=== PATIENT | male | born 1960 | race Caucasian/White ===

== ENCOUNTER → 2018-04-13 11:34 | Outpatient (CLI) | payer BC, OTHER, SELFPAY | DX: I48.2 Chronic atrial fibrillation (principal) | CPT/HCPCS: 36416; 85610 ==

== ENCOUNTER 2018-12-21 09:07 | Inpatient (IN) | payer OTHER, SELFPAY ==
[2018-12-21] VITALS (13 sets, daily range): BP systolic 92–132; BP diastolic 55–72; PULSE 94–120; RESP 16–24; TEMP 36.1–37.8; O2SAT 92–99; BMI 35.7; BMI 34.4; BMI 34.5
--- NOTE | 2018-12-21 09:32 | US_ITS ---
STUDY: SCROTUM ULTRASOUND REASON FOR EXAM: Male, 58 years old. Left testicular pain and swelling. TECHNIQUE: Ultrasound evaluation of the scrotum was performed with color Doppler and static briggs-scale imaging. COMPARISON: None. FINDINGS: RIGHT TESTICLE INTRATESTICULAR: There is a normal size of the right testicle. The right testicle measures 5.0 cm x 3.0 cm x 2.2 cm. There is a homogenous echotexture. There is normal arterial and normal venous vascularity. There is no demonstrated right testicular mass or cyst. EXTRATESTICULAR: The epididymis is normal in size. The epididymis head measures 1.3 cm x 1.5 cm x 0.6 cm. There is normal vascularity of the epididymis. 2 epididymal cysts are seen. The larger measures 6 mm x 7 mm x 4 mm. There is a small hydrocele. There is no demonstrated varicocele. There is no demonstrated extratesticular mass or cyst. LEFT TESTICLE INTRATESTICULAR: There is a normal size of the left testicle. The left testicle measures 5.1 cm x 3.4 cm x 3.0 cm. There is a homogenous echotexture. There is normal arterial and normal venous vascularity. There is no demonstrated left testicular mass or cyst. EXTRATESTICULAR: The epididymis is enlarged. The epididymis head measures 1.8 cm x 1.7 cm x 0.8 cm. There is increased (hyperemic) vascularity of the epididymis. There is no demonstrated epididymal cystic structure. There is a moderate size hydrocele. There is no demonstrated varicocele. There is no demonstrated extratesticular mass or cyst. Scrotal skin thickening on the left. US/Testicular with Arterial Flow IMPRESSION: Enlargement of the left epididymis with increased vascularity suggestive of epididymitis. Bilateral hydroceles left greater than right. Electronically Signed: Saleem Warren MD at 11:15 EST Tel [phone], Service support ,
[2018-12-21] MEDS: morphine 8 MG/ML Syringe 6 MG IV (09:35)
[2018-12-21] MEDS: Ondansetron 4 MG/2 ML Vial IV (09:35)
--- NOTE | 2018-12-21 09:45 | ED.DCSUM_ITS ---
- ER Visit Summary Date of Service: 12/21/18 Chief Complaint: Pain left testicle and swelling History of Present Illness: The patient is a 58 M who presents with pain left testicle that started Noe. Pain in increased over the past 2 days. He now presents because of significant swelling. He denies fever, chills or night sweats. He denies dysuria, frequency, urgency or hematuria. He denies urethral discharge. He denies history of hernia. He is on Coumadin. He denies history of trauma. He denies fever, chills or night sweats. He denies weight gain or weight loss. He denies ocular, visual or auditory symptoms. He denies cardiac respiratory symptoms. He reports nausea with significant pain. He denies vomiting, diarrhea, hematemesis, or melena. Physical Examination: Vital signs noted. Blood pressure is 109/55, heart rate 118, respiratory rate 23. Patient appears uncomfortable. HEENT exam is unremarkable. Heart is regular. Lungs are clear to auscultation. Abdomen is soft nontender. He is circumcised. There is no penile lesion or discharge noted. The scrotum is swollen. The right testicle is normal. The left testicle is 4-5 times larger than the right. It is not mobile. It is tender. There is no obvious palpable hernia. There is no inguinal lymphadenopathy noted. Neuro exam is nonfocal. Test Results: White count is 30.2 thousand with 90 segs no bands 4 lymphs. Electrolyte panel is marked for sodium of 132 and chloride 92. Blood sugar is elevated 185. BUN is 22 with a creatinine 1.56. Lactate is 2.2. Ultrasound per tech reveals a small hydrocele on the right. There is a loculated hydrocele on the left that is 4.3 cm in size. The epididymis is enlarged as well at 1.8 cm. Flow was noted bilaterally. Emergency Department Course and Treatment: Since patient is on Coumadin will obtain PT/INR. Ultrasound of the testicle was obtained to evaluate for hematoma, hydrocele, mass, doubt torsion. Blood work was obtained as well. A UA was obtained even though he denies urinary symptoms. Patient denies any new sexual contacts and prior history of STD. Urine for GC and chlamydia was ordered. Once I was made aware of the white count lactate and blood cultures were added as well as 1 g of Rocephin. Urology was paged. Dr. Rod did call back. He agrees with antibiotic choice and admission to hospitalist for treatment of acute orchitis. Since his lactate is elevated and he has multiple seizures criteria he will be admitted for severe sepsis. Treatment Plan: IV antibiotics and treatment for severe sepsis Disposition: PCU full admission Impression: 1. Severe sepsis 2. Acute left orchitis 3. Hydrocele right testicle 4. Renal insufficiency 5. Hyperglycemia in a nondiabetic 6. Hyponatremia This note was generated with [employer] dictation software. It may contain incorrect words, spelling, and punctuation that were not noted in review of the chart prior to signing ED Disposition - Plan for ED Patient: Chief Complaint: Edema Referrals: Neto Box MD [Primary Care Provider] -
[2018-12-21 09:56] LABS: Absolute Lymphocyte Count 1.18 X10^3/ul (0.83-4.51); Absolute Neutrophil Count 27.3 X10^3/uL (2.0-7.7); Basophil# 0.02 X10^3/uL; Basophil% 0.1 % (0-1); Eosinophil# 0.03 X10^3/uL; Eosinophils% 0.1 % (0-5); Hematocrit 46.1 % (40-54); Hemoglobin 15.6 g/dl (13.0-16.5); Lymphocyte # 1.18 X10^3/ul (4.0); Lymphocyte % 3.9 % (19-41); Mean Corp Hgb Conc 33.8 g/gl (32-36); Mean Corpuscular Hgb 29.8 pg (27.0-32.0); Mean Platelet Vol. 9.9 fl (6.2-12.0); Monocyte# 1.39 X10^3/uL; Monocyte% 4.6 % (0-10); Neutrophil # 27.25 X10^3/uL (2.7-7.7); Neutrophil % 90.3 % (47-70); Platelet Count 218 K/mm3 (150-450); RBC Distribution Width CV 14.3 % (11.6-14.6); RBC Distribution Width SD 45.3 fl (35.1-43.9); Red Blood Count 5.24 M/mm3 (4.6-6.2)
[2018-12-21 09:58] LABS: Differential Indicated SCAN CRITERIA MET; POSITIVE COUNT YES; POSITIVE DIFFERENTIAL YES; POSITIVE MORPHOLOGY NO; White Blood Count 30.2 K/mm3 (4.4-11.0)
--- NOTE | 2018-12-21 09:58 | ED.RN ---
WBC 30.[address] CALLED [address] LAB. DR DECKER AWARE
[2018-12-21 10:07] LABS: Anion Gap 11 (5-15); BUN 22 mg/dL (7-18); BUN/Creat Ratio 14.1 RATIO (10-20); Calcium,Total 9.1 mg/dL (8.5-10.1); Chloride 92 mmol/L (98-107); Creatinine, Serum 1.56 mg/dL (0.70-1.30); EST Glomerular Filtration Rate 49 mL/min (>60); Est Glom Filt Rate - Afr Amer 59 mL/min (>60); Estimated Creatinine Clearance 46.01 ml/min; Glucose 185 mg/dL (74-106); Potassium 3.8 mmol/L (3.5-5.1); Sodium Level 132 mmol/L (136-145)
[2018-12-21 10:19] LABS: International Normalized Ratio 1.2; Prothrombin Time (Protime)PT. 15.5 SECONDS (11.7-14.9)
[2018-12-21 10:21] LABS: Differential Comment SCANNED; Vacuolated Cells 1+
[2018-12-21] MEDS: Ceftriaxone 1 GM/50 ML BAG IV (10:37)
[2018-12-21 10:55] LABS: Lactic Acid 2.2 mmol/L (0.4-2.0)
--- NOTE | 2018-12-21 10:55 | ED.RN ---
LACTIC 2.2 CALLED FROM THE LAB. DR DECKER AWARE
--- NOTE | 2018-12-21 11:46 | NURSING ---
Tong ROJAS SEVERE SEPSIS, ACUTE ORCHITIS
[2018-12-21 11:53] LABS: Color, Urine Yellow (Yellow); Glucose, Dipstick Normal (Normal); Ketone-Dipstick 5 mg/dl (Negative); Leukocyte Esterase-Dipstick 500 /ul (Negative); Nitrite-Dipstick Positive (Negative); Occult Blood-Urine 25 /ul (Negative); Protein-Dipstick 100 mg/dl (Negative); Specific Gravity, Urine 1.025 (1.002-1.030); Urine Clarity Cloudy (Clear); Urine Urobilinogen 4 mg/dl (Normal)
[2018-12-21 12:01] LABS: Urine Bilirubin Dipstick 3 mg/dL (Negative)
[2018-12-21 12:02] LABS: Bacteria 2+ /hpf (None Seen); Red Blood Cells-Urine 0-5 SEEN /hpf (0-5); White Blood Cells 25-50 SEEN /hpf (0-5)
[2018-12-21 12:03] LABS: Mucous, Urine 1+ /hpf (<or=2+); Squamous Epithelial Cells - UA 0-5 SEEN /hpf (0-5)
[2018-12-21] MEDS: Morphine 4 MG/ML Syringe IV (12:09)
--- NOTE | 2018-12-21 12:23 | CM.ED ---
Social Work Note Face to face with pt to complete initial assessment. Introduced self and role at [facility]. The pt reports to live with his son in a one-story home with no LEELA. His son is a overhauler bus truck and is gone most of the time per his report. Pt is independent with ADLs and does not require the use of DME for assistance. Confirmed that his PCP is Dr. Box and he also sees Dr. Pratt for cardiology (has 4 stents). Preferred pharmacy is [facility] in [place]. Pt denies mental health diagnoses, and substance abuse history. Does not have advanced directives and declines information at this time. Do not anticipate needs at discharge. PLAN: Home. Jessica Nelson, [employer], FREDO
[2018-12-21] MEDS: oxyCODONE 5 MG Tablet PO ×3 (13:50→22:34)
[2018-12-21] MEDS: 0.9% Normal Saline 1,000 ML 200 ML IV (13:50)
[2018-12-21 14:25] LABS: Reflex Lactate? Y
--- NOTE | 2018-12-21 14:25 | HP.PCM_ITS ---
Problem List (1) Cellulitis of scrotum Status: Acute (2) Severe sepsis Status: Acute History of Present Illness Date of Admission: 12/21/18 Chief Complaint: testilcular swelling The patient is a 58 year old M the 18th, where patient had some pain in his left groin. Instructed off but was not feeling well overall and not eating much. Today, the pain was much more intense and was noted to have prominent erythema and tenderness over his scrotum put her on the left side. Patient denies any obvious trauma to his leg is never had any history of cellulitis much less scrotal cellulitis previously. Patient presented to the emergency room for evaluation he was diagnosed with acute left orchitis and I received 1 g of Rocephin. Has been chilled and has had diaphoresis but denies any fever. [] Past Medical History Past Medical History (Chronic Problems): Chronic Problems (Last Updated 11/18/17 @ 09:15 by DORENE Dao) Hyperlipidemia (Chronic) HTN (hypertension), benign (Chronic) Persistent atrial fibrillation (Chronic) CAD (coronary artery disease), [place] coronary artery (Chronic) Medical History: Medical History (Last Reviewed 12/21/18 @ 14:24 by Esvin Rodriguez DO) Hyperlipidemia (Chronic) E78.5 HTN (hypertension), benign (Chronic) I10 Persistent atrial fibrillation (Chronic) I48.1 Cardiomyopathy, ischemic (Resolved) I25.5 CAD (coronary artery disease), [place] coronary artery (Chronic) I25.10 Allergies atorvastatin calcium [From Lipitor] Allergy (Verified 12/21/18 09:07) Unknown fenofibrate nanocrystallized [From Tricor] Allergy (Verified 12/21/18 09:07) Unknown fenofibrate,micronized [From Tricor] Allergy (Verified 12/21/18 09:07) Unknown pravastatin sodium [From Pravachol] Allergy (Verified 12/21/18 09:07) Unknown rosuvastatin calcium [From Crestor] Allergy (Verified 12/21/18 09:07) Unknown simvastatin [From Zocor] Allergy (Verified 12/21/18 09:07) Unknown Home Medications: Ambulatory Orders Medication Instructions Recorded warfarin 5 mg tablet 5 mg PO DAILY #90 tab 11/06/17 clopidogrel 75 mg tablet 75 mg PO DAILY #90 tab 05/19/18 digoxin 250 mcg tablet 250 mcg PO DAILY #90 tab 05/19/18 losartan 100 1 tab PO QDAY #90 tab 05/19/18 mg-hydrochlorothiazide 25 mg tablet metoprolol succinate ER 100 mg 100 mg PO QDAY #90 tab 05/19/18 tablet,extended release 24 hr Psyllium Husk [Metamucil] 0.4 gm PO DAILY 12/21/18 Surgical History: Surgical History (Last Reviewed 12/21/18 @ 14:24 by Esvin Rodriguez DO) S/P coronary artery stent placement (Resolved) Z95.5 LAD 2008, LAD 2012 Smoking Status: Never smoker Tobacco Use: Non-smoker Alcohol: None Drugs: None - *Family History Paternal History Items: Heart Disease Review of Systems Constitutional: Reports: Anorexia, Chills, Malaise. Denies: Fever, Night Sweats Eyes: Denies: Blurred vision, Double vision HEENT: Denies: Head Aches, Sinus Congestion, Sinus Drainage Cardiovascular: Denies: Chest Pain, Palpitations Respiratory: Denies: Cough, Shortness of breath at rest, Sputum production Gastrointestinal: Reports: Abdominal Pain. Denies: Nausea, Vomiting Genitourinary: Reports: Dysuria. Denies: Frequency Musculoskeletal: Denies: Joint Pain, Joint Tenderness Skin: Denies: Dryness, Jaundice Neurological: Denies: Numbness, Tingling, Focal weakness Psychiatric: Denies: Anxiety, Depression Endocrine: Denies: Change in Body Habitus, Heat/ Cold Intolerance Hematologic/ Lymphatic: Reports: Easy Bleeding. Denies: Easy Bruising, Hx of blood clot Comment: A 10 point review of systems were negative except as mentioned in the history of present illness and the other review of systems. VTE Information - Inpt Only VTE Present on Admission: No VTE Pharm Prophylaxis ordered?: Yes Patient Problems: Active and Suspected Problems (Last Updated 11/18/17 @ 09:15 by DORENE Salas) Cellulitis of scrotum (Acute) Severe sepsis (Acute) Objective: Scrotum with erythema circumferentially. Tender to palpation on the distal aspect of the scrotum. No obvious lesions or wounds noted. - Physical Exam General: Alert, Cooperative, No apparent distress HEENT: Atraumatic, Normocephalic, - - No scleral icterus. Oral: Moist Mucosa, No Gingival or Mucosal Lesions/ Ulcerations Neck: No Nodes, Thyroid Normal Size and Texture Lungs: Clear to auscultation, Normal air movement, No rhonchi, No wheeze Cardiovascular: Regular rate, Regular Rhythm, Normal S1, Normal S2, No murmurs Abdomen: Bowel Sounds Present, Soft, Non Tender, Non-Distended, No Hepato- splenomegaly Extremities: No edema, No Calf Tenderness Skin: - - excoriations over the distal legs Musculoskeletal: No Tenderness to Palpation of Joints or Extremities, No Muscle Wasting Neurological: Neuro grossly intact, Muscle tone normal, Coordination normal Psych/Mental Status: Normal Affect, Appropriate Vital Signs Temp Pulse Resp BP Pulse Ox 37.4 C H 120 H 20 H 98/68 92 12/21/18 13:02 12/21/18 13:08 12/21/18 13:02 12/21/18 13:02 12/21/18 13:02 Oxygen Delivery Method Room Air Weight: 97 kg Body Mass Index (BMI) 34.4 Laboratory Tests Past 24 Hrs 12/21/18 12/21/18 12/21/18 09:40 09:40 09:40 WBC 30.2 H* RBC 5.24 Hgb 15.6 Hct 46.1 MCV 88.0 MCH 29.8 MCHC 33.8 RDW 14.3 RDW Differential 45.3 H Plt Count 218 MPV 9.9 Immature Gran % (Auto) 1.000 H Neut % (Auto) 90.3 H Lymph % (Auto) 3.9 L [place] % (Auto) 4.6 Eos % (Auto) 0.1 Baso % (Auto) 0.1 Absolute Neuts (auto) 27.3 H Absolute Lymphs (auto) 1.18 Total Counted Not Reportable Differential Comment 1+ Diff Path Review March foll PT 15.5 H INR 1.2 Sodium 132 L Potassium 3.8 Chloride 92 L Carbon Dioxide 29.0 Anion Gap 11 BUN 22 H Creatinine 1.56 H Estim Creat Clear Calc 46.01 Est GFR (MDRD) Af Amer 59 L Est GFR (MDRD) Non-Af 49 L BUN/Creatinine Ratio 14.1 Glucose 185 H Lactic Acid Calcium 9.1 Urine Color Urine Clarity Urine pH Ur Specific [place] Urine Protein Urine Glucose (UA) Urine Ketones Urine Occult Blood Urine Nitrite Urine Bilirubin Urine Urobilinogen Ur Leukocyte Esterase Urine RBC Urine WBC Ur Squamous Epith Cells Urine Bacteria Urine Mucus Chlam trachomat DNA PCR N.gonorrhoeae DNA (PCR) 12/21/18 12/21/18 12/21/18 10:18 11:35 11:35 WBC RBC Hgb Hct MCV MCH MCHC RDW RDW Differential Plt Count MPV Immature Gran % (Auto) Neut % (Auto) Lymph % (Auto) [place] % (Auto) Eos % (Auto) Baso % (Auto) Absolute Neuts (auto) Absolute Lymphs (auto) Total Counted Differential Comment Diff Path Review PT INR Sodium Potassium Chloride Carbon Dioxide Anion Gap BUN Creatinine Estim Creat Clear Calc Est GFR (MDRD) Af Amer Est GFR (MDRD) Non-Af BUN/Creatinine Ratio Glucose Lactic Acid 2.2 H Calcium Urine Color Yellow Urine Clarity Cloudy Urine pH 5.0 Ur Specific [place] 1.025 Urine Protein 100 H Urine Glucose (UA) Normal Urine Ketones 5 H Urine Occult Blood 25 H Urine Nitrite Positive H Urine Bilirubin 3 H Urine Urobilinogen 4 H Ur Leukocyte Esterase 500 H Urine RBC 0-5 SEEN Urine WBC 25-50 SEEN Ur Squamous Epith Cells 0-5 SEEN Urine Bacteria 2+ Urine Mucus 1+ Chlam trachomat DNA PCR Pending N.gonorrhoeae DNA (PCR) Pending Clinical Impression(s) from Imaging Studies Testicular Ultrasound 12/21/18 09:32 IMPRESSION: Enlargement of the left epididymis with increased vascularity suggestive of epididymitis. Bilateral hydroceles left greater than right. Electronically Signed: Saleem Warren MD at 11:15 EST Tel [phone], Service support , Assessment/Plan All Active Problems (Last Updated 11/18/17 @ 09:15 by DORENE Dao) Cellulitis of scrotum (Acute) Severe sepsis (Acute) Cardiomyopathy, ischemic (Resolved) S/P coronary artery stent placement (Resolved) 1. Severe sepsis Present on admission Secondary to scrotal cellulitis IV fluids Recheck lactic acid 2. Scrotal cellulitis I doubt orchitis as patient testicles normal size on ultrasound Will treat empirically for possible orchitis with ceftriaxone 2 g IV daily Will also start patient on IV vancomycin Keep scrotum elevated No clinical suspicion for gangrene at this time Urology on consult 3. Chronic atrial fibrillation Patient had stopped Coumadin due to a disagreement to his primary provider and cardiology because cardiology wanted him on Plavix and Coumadin but his primary provider did not because of his bleeding tendencies. Discussed with patient about bleeding risk but also the risk of stroke without being on Coumadin. He would prefer to be back on Coumadin and understands the risks of bleeding Will resume Coumadin Continue with digoxin and metoprolol succinate 4. CAD Stable Continue with Plavix, metoprolol 5. DVT prophylaxis with Lovenox until INR is therapeutic Code Visit Inpatient E&M: 53355 Init Hosp L3
[2018-12-21 14:41] LABS: Chlamydia Trachomatis by PCR Negative (Negative); Neisserai gonorrhoeae by PCR Negative (Negative); Probe Check PASS; Sample Adequacy Control PASS; Specimen Processing Control PASS
[2018-12-21 15:16] LABS: Lactic Acid 1.6 mmol/L (0.4-2.0)
--- NOTE | 2018-12-21 16:17 | PCM.RX.CS ---
Consult Pharmacy has been consulted to manage selected antiobiotic: Vancomycin Type of Consult: New start Suspected Infection: Sepsis Prior Doses of Antibiotics Received/Current Regimen: NONE Labs: Sodium 132 mmol/L (136-145) L 12/21/18 09:40 Potassium 3.8 mmol/L (3.5-5.1) 12/21/18 09:40 Chloride 92 mmol/L (98-107) L 12/21/18 09:40 Carbon Dioxide 29.0 mmol/L (21.0-32.0) 12/21/18 09:40 Anion Gap 11 (5-15) 12/21/18 09:40 BUN 22 mg/dL (7-18) H 12/21/18 09:40 Creatinine 1.56 mg/dL (0.70-1.30) H 12/21/18 09:40 Est GFR (MDRD) Af Amer 59 mL/min (>60) L 12/21/18 09:40 Est GFR (MDRD) Non-Af 49 mL/min (>60) L 12/21/18 09:40 BUN/Creatinine Ratio 14.1 RATIO (10-20) 12/21/18 09:40 Glucose 185 mg/dL (74-106) H 12/21/18 09:40 Weight used for dosin kg Estimated Creatinine Clearance: 46ML/MIN Goal Trough: 15-20 mcg/mL Pharmacy Plan for Drug Dosing: PLAN/RECOMMENDATIONS 1. Vancomycin initial dose 1500mg IV x1 @12/21/18 @1700 per protocol 2. Vancomycin 750mg IV Q12hrs to start 12/22/18 @0500 per protocol 3. Trough scheduled 12/23/18 @0430, prior to 4th total vancomycin dose 4. Pharmacy Service will continue to monitor and adjust dosing as required.
[2018-12-21] MEDS: Clopidogrel Bisulfate 75 MG Tablet PO (17:38)
[2018-12-21] MEDS: Metoprolol(XL)Succ 100 MG Tablet PO (17:39)
[2018-12-21] MEDS: Digoxin 250 MCG Tablet PO (17:39)
[2018-12-21] MEDS: Acetaminophen 500 MG Tablet 1000 MG PO (20:17)
[2018-12-21] MEDS: Psyllium 1 PACKET PO (20:18)
[2018-12-21] MEDS: Gabapentin 300 MG Capsule PO (22:33)
[2018-12-22] VITALS (9 sets, daily range): BP systolic 103–180; BP diastolic 53–86; PULSE 84–119; RESP 18–20; TEMP 36.8–38.7; O2SAT 97–98
[2018-12-22] MEDS: oxyCODONE 5 MG Tablet PO ×5 (02:36→19:51)
[2018-12-22 05:33] LABS: Absolute Lymphocyte Count 0.84 X10^3/ul (0.83-4.51); Absolute Neutrophil Count 14.1 X10^3/uL (2.0-7.7); Basophil# 0.01 X10^3/uL; Basophil% 0.1 % (0-1); Eosinophil# 0.13 X10^3/uL; Eosinophils% 0.8 % (0-5); Hematocrit 40.6 % (40-54); Hemoglobin 13.5 g/dl (13.0-16.5); Lymphocyte # 0.84 X10^3/ul (4.0); Lymphocyte % 5.1 % (19-41); Mean Corp Hgb Conc 33.3 g/gl (32-36); Mean Corpuscular Hgb 29.2 pg (27.0-32.0); Mean Corpuscular Volume 87.7 fL (80-94); Mean Platelet Vol. 9.3 fl (6.2-12.0); Monocyte# 1.28 X10^3/uL; Monocyte% 7.8 % (0-10); Neutrophil # 14.05 X10^3/uL (2.7-7.7); Neutrophil % 85.7 % (47-70); Platelet Count 198 K/mm3 (150-450); RBC Distribution Width CV 14.4 % (11.6-14.6); RBC Distribution Width SD 45.6 fl (35.1-43.9); Red Blood Count 4.63 M/mm3 (4.6-6.2); White Blood Count 16.4 K/mm3 (4.4-11.0)
[2018-12-22 05:39] LABS: POSITIVE COUNT NO; POSITIVE DIFFERENTIAL NO; POSITIVE MORPHOLOGY NO
[2018-12-22 05:40] LABS: International Normalized Ratio 1.2; Prothrombin Time (Protime)PT. 14.8 SECONDS (11.7-14.9)
[2018-12-22 05:46] LABS: Anion Gap 6 (5-15); BUN 28 mg/dL (7-18); BUN/Creat Ratio 22.8 RATIO (10-20); Calcium,Total 8.5 mg/dL (8.5-10.1); Chloride 99 mmol/L (98-107); Creatinine, Serum 1.23 mg/dL (0.70-1.30); EST Glomerular Filtration Rate 64 mL/min (>60); Est Glom Filt Rate - Afr Amer 77 mL/min (>60); Estimated Creatinine Clearance 58.35 ml/min; Glucose 115 mg/dL (74-106); Potassium 3.5 mmol/L (3.5-5.1); Sodium Level 137 mmol/L (136-145)
[2018-12-22] MEDS: 0.9% NaCl Peripheral Flush Adult/Peds IV ×2 (06:09→17:07)
--- NOTE | 2018-12-22 09:06 | PCM.PN.HOSP ---
Patient Problems: Active and Suspected Problems (Last Reviewed 12/21/18 @ 14:24 by Esvin Rodriguez DO) Cellulitis of scrotum (Acute) Severe sepsis (Acute) Subjective: fever and chills overnight. Abdominal pain. Still with scrotal pain and erythema, though he feels the erythema is improving. Objective: : still with erythema of scrotum, but slightly improved from 12/21. no crepitus. Vitals/I&O's: Vital Signs Temp Pulse Resp BP Pulse Ox 36.8 C 90 20 H 120/72 98 12/22/18 04:30 12/22/18 06:54 12/22/18 04:30 12/22/18 04:30 12/22/18 04:30 Oxygen Delivery Method Room Air Weight: 97 kg Body Mass Index (BMI) 34.4 Intake and Output for Last 24 Hours 12/20/18 12/21/18 12/22/18 23:59 23:59 23:59 Intake Total 1830 / 1830 1255 / 1255 Output Total 300 / 300 1225 / 1225 Balance 1530 / 1530 30 / 30 General: Alert, - - uncomfortable. HEENT: Atraumatic, Normocephalic Oral: Moist Mucosa, No Gingival or Mucosal Lesions/ Ulcerations Neck: No Nodes, Thyroid Normal Size and Texture Lungs: Clear to auscultation, Normal air movement, No rhonchi, No wheeze Cardiovascular: Regular rate, Regular Rhythm, Normal S1, Normal S2, No murmurs Abdomen: Bowel Sounds Present, Soft, Non-Distended, Tender Extremities: No edema, No Calf Tenderness Laboratory Results 12/21/18 09:40: WBC 30.2 H*, RBC 5.24, Hgb 15.6, Hct 46.1, MCV 88.0, MCH 29.8, MCHC 33.8, RDW 14.3, RDW Differential 45.3 H, Plt Count 218, MPV 9.9, Immature Gran % (Auto) 1.000 H, Neut % (Auto) 90.3 H, Lymph % (Auto) 3.9 L, [place] % (Auto) 4.6, Eos % (Auto) 0.1, Baso % (Auto) 0.1, Absolute Neuts (auto) 27.3 H, Absolute Lymphs (auto) 1.18, Total Counted Not Reportable, Differential Comment 1+, Diff Path Review March foll 12/21/18 09:40: Sodium 132 L, Potassium 3.8, Chloride 92 L, Carbon Dioxide 29.0, Anion Gap 11, BUN 22 H, Creatinine 1.56 H, Estim Creat Clear Calc 46.01, Est GFR (MDRD) Af Amer 59 L, Est GFR (MDRD) Non-Af 49 L, BUN/Creatinine Ratio 14.1, Glucose 185 H, Calcium 9.1 12/21/18 09:40: PT 15.5 H, INR 1.2 12/21/18 10:18: Lactic Acid 2.2 H 12/21/18 11:35: Urine Color Yellow, Urine Clarity Cloudy, Urine pH 5.0, Ur Specific [place] 1.025, Urine Protein 100 H, Urine Glucose (UA) Normal, Urine Ketones 5 H, Urine Occult Blood 25 H, Urine Nitrite Positive H, Urine Bilirubin 3 H, Urine Urobilinogen 4 H, Ur Leukocyte Esterase 500 H, Urine RBC 0-5 SEEN, Urine WBC 25-50 SEEN, Ur Squamous Epith Cells 0-5 SEEN, Urine Bacteria 2+, Urine Mucus 1+ 12/21/18 11:35: Chlam trachomat DNA PCR Negative, N.gonorrhoeae DNA (PCR) Negative 12/21/18 14:48: Lactic Acid 1.6 12/22/18 04:55: Sodium 137, Potassium 3.5, Chloride 99, Carbon Dioxide 32.0, Anion Gap 6, BUN 28 H, Creatinine 1.23, Estim Creat Clear Calc 58.35, Est GFR (MDRD) Af Amer 77, Est GFR (MDRD) Non-Af 64, BUN/Creatinine Ratio 22.8 H, Glucose 115 H, Calcium 8.5 12/22/18 04:55: WBC 16.4 H, RBC 4.63, Hgb 13.5, Hct 40.6, MCV 87.7, MCH 29.2, MCHC 33.3, RDW 14.4, RDW Differential 45.6 H, Plt Count 198, MPV 9.3, Immature Gran % (Auto) 0.500, Neut % (Auto) 85.7 H, Lymph % (Auto) 5.1 L, [place] % (Auto) 7.8, Eos % (Auto) 0.8, Baso % (Auto) 0.1, Absolute Neuts (auto) 14.1 H, Absolute Lymphs (auto) 0.84, Total Counted Not Reportable 12/22/18 04:55: PT 14.8, INR 1.2 Current Medications Acetaminophen (Tylenol) 1,000 mg PO Q8H PRN PRN PRN Reason: pain. fever. Last Admin: 12/21/18 20:17 Dose: 1,000 mg Clopidogrel Bisulfate (Plavix) 75 mg PO DAILY [facility] Last Admin: 12/21/18 17:38 Dose: 75 mg Digoxin (Lanoxin) 250 mcg PO DAILY [facility] Last Admin: 12/21/18 17:39 Dose: 250 mcg Enoxaparin Sodium (Lovenox) 40 mg SC DAILY@1000 [facility] Gabapentin (Neurontin) 300 mg PO QHS [facility] Last Admin: 12/21/18 22:33 Dose: 300 mg Ceftriaxone Sodium 2 gm/ (Sodium Chloride) 50 mls @ 100 mls/hr IV Q24 [facility] Vancomycin IV Pharmacy to Dose (1 ea/ Sodium Chloride) 500 mls @ 250 mls/hr IV PRN PRN; Protocol PRN Reason: Rx to Dose Vancomycin HCl 750 mg/ Sodium (Chloride) 265 mls @ 250 mls/hr IV Q12H [facility] Last Admin: 12/22/18 06:09 Dose: 250 mls/hr Magnesium Hydroxide (Milk Of Magnesia) 30 ml PO DAILY PRN PRN Reason: Constipation Metoprolol Succinate (Toprol Xl (Beta Eusebio)) 100 mg PO DAILY [facility] Last Admin: 12/21/18 17:39 Dose: 100 mg Ondansetron HCl (Zofran) 4 mg IV Q6H PRN PRN PRN Reason: nausea vomiting Oxycodone HCl (Oxyir) 5 mg PO Q4H PRN PRN PRN Reason: SEVERE PAIN (6-10/10) Last Admin: 12/22/18 06:39 Dose: 5 mg Psyllium Hydrophilic Mucilloid (Metamucil) 1 packet PO DAILY [facility] Last Admin: 12/21/18 20:18 Dose: 1 packet Sodium Chloride () 5 - 15 ml IV UD PRN PRN Reason: SALINE FLUSH Last Admin: 12/22/18 06:09 Dose: 10 ml Warfarin Sodium (Coumadin (Pbkc)) 5 mg PO DAILY@1700 [facility] Last Admin: 12/21/18 17:39 Dose: 5 mg Medical Necessity - Tobacco Use Smoking Status: Never smoker Tobacco Use: Non-smoker Assessment/Plan All Active Problems (Last Reviewed 12/21/18 @ 14:24 by Esvin Rodriguez DO) Cellulitis of scrotum (Acute) Severe sepsis (Acute) Cardiomyopathy, ischemic (Resolved) S/P coronary artery stent placement (Resolved) 1. Severe sepsis Present on admission Clinically improving Secondary to scrotal cellulitis IV fluids Lactic acidosis resolved. 2. Scrotal cellulitis Ongoing. I doubt orchitis as patient testicles normal size on ultrasound Will treat empirically for possible orchitis with ceftriaxone 2 g IV daily Will also start patient on IV vancomycin Keep scrotum elevated No clinical suspicion for gangrene at this time Urology on consult 3. Chronic atrial fibrillation Patient had stopped Coumadin due to a disagreement to his primary provider and cardiology because cardiology wanted him on Plavix and Coumadin but his primary provider did not because of his bleeding tendencies. Discussed with patient about bleeding risk but also the risk of stroke without being on Coumadin. He would prefer to be back on Coumadin and understands the risks of bleeding Will resume Coumadin Continue with digoxin and metoprolol succinate 4. CAD Stable Continue with Plavix, metoprolol 5. DVT prophylaxis with Lovenox until INR is therapeutic Can deescalate to Med Surg status today. Code Visit Inpatient E&M: 41570 Subs Hosp L2
--- NOTE | 2018-12-22 09:10 | PN_ITS ---
Patient Problems: Active and Suspected Problems (Last Reviewed 12/21/18 @ 14:24 by Esvin Rodriguez DO) Cellulitis of scrotum (Acute) Severe sepsis (Acute) Subjective: fever and chills overnight. Abdominal pain. Still with scrotal pain and erythema, though he feels the erythema is improving. Objective: : still with erythema of scrotum, but slightly improved from 12/21. no crepitus. Vitals/I&O's: Vital Signs Temp Pulse Resp BP Pulse Ox 36.8 C 90 20 H 120/72 98 12/22/18 04:30 12/22/18 06:54 12/22/18 04:30 12/22/18 04:30 12/22/18 04:30 Oxygen Delivery Method Room Air Weight: 97 kg Body Mass Index (BMI) 34.4 Intake and Output for Last 24 Hours 12/20/18 12/21/18 12/22/18 23:59 23:59 23:59 Intake Total 1830 / 1830 1255 / 1255 Output Total 300 / 300 1225 / 1225 Balance 1530 / 1530 30 / 30 General: Alert, - - uncomfortable. HEENT: Atraumatic, Normocephalic Oral: Moist Mucosa, No Gingival or Mucosal Lesions/ Ulcerations Neck: No Nodes, Thyroid Normal Size and Texture Lungs: Clear to auscultation, Normal air movement, No rhonchi, No wheeze Cardiovascular: Regular rate, Regular Rhythm, Normal S1, Normal S2, No murmurs Abdomen: Bowel Sounds Present, Soft, Non-Distended, Tender Extremities: No edema, No Calf Tenderness Laboratory Results 12/21/18 09:40: WBC 30.2 H*, RBC 5.24, Hgb 15.6, Hct 46.1, MCV 88.0, MCH 29.8, MCHC 33.8, RDW 14.3, RDW Differential 45.3 H, Plt Count 218, MPV 9.9, Immature Gran % (Auto) 1.000 H, Neut % (Auto) 90.3 H, Lymph % (Auto) 3.9 L, [place] % (Auto) 4.6, Eos % (Auto) 0.1, Baso % (Auto) 0.1, Absolute Neuts (auto) 27.3 H, Absolute Lymphs (auto) 1.18, Total Counted Not Reportable, Differential Comment 1+, Diff Path Review March foll 12/21/18 09:40: Sodium 132 L, Potassium 3.8, Chloride 92 L, Carbon Dioxide 29.0, Anion Gap 11, BUN 22 H, Creatinine 1.56 H, Estim Creat Clear Calc 46.01, Est GFR (MDRD) Af Amer 59 L, Est GFR (MDRD) Non-Af 49 L, BUN/Creatinine Ratio 14.1, Glucose 185 H, Calcium 9.1 12/21/18 09:40: PT 15.5 H, INR 1.2 12/21/18 10:18: Lactic Acid 2.2 H 12/21/18 11:35: Urine Color Yellow, Urine Clarity Cloudy, Urine pH 5.0, Ur Specific [place] 1.025, Urine Protein 100 H, Urine Glucose (UA) Normal, Urine Ketones 5 H, Urine Occult Blood 25 H, Urine Nitrite Positive H, Urine Bilirubin 3 H, Urine Urobilinogen 4 H, Ur Leukocyte Esterase 500 H, Urine RBC 0-5 SEEN, Urine WBC 25-50 SEEN, Ur Squamous Epith Cells 0-5 SEEN, Urine Bacteria 2+, Urine Mucus 1+ 12/21/18 11:35: Chlam trachomat DNA PCR Negative, N.gonorrhoeae DNA (PCR) Negati ve 12/21/18 14:48: Lactic Acid 1.6 12/22/18 04:55: Sodium 137, Potassium 3.5, Chloride 99, Carbon Dioxide 32.0, Anion Gap 6, BUN 28 H, Creatinine 1.23, Estim Creat Clear Calc 58.35, Est GFR (MDRD) Af Amer 77, Est GFR (MDRD) Non-Af 64, BUN/Creatinine Ratio 22.8 H, Glucose 115 H, Calcium 8.5 12/22/18 04:55: WBC 16.4 H, RBC 4.63, Hgb 13.5, Hct 40.6, MCV 87.7, MCH 29.2, MCHC 33.3, RDW 14.4, RDW Differential 45.6 H, Plt Count 198, MPV 9.3, Immature Gran % (Auto) 0.500, Neut % (Auto) 85.7 H, Lymph % (Auto) 5.1 L, [place] % (Auto) 7.8, Eos % (Auto) 0.8, Baso % (Auto) 0.1, Absolute Neuts (auto) 14.1 H, Absolute Lymphs (auto) 0.84, Total Counted Not Reportable 12/22/18 04:55: PT 14.8, INR 1.2 Current Medications Acetaminophen (Tylenol) 1,000 mg PO Q8H PRN PRN PRN Reason: pain. fever. Last Admin: 12/21/18 20:17 Dose: 1,000 mg Clopidogrel Bisulfate (Plavix) 75 mg PO DAILY [facility] Last Admin: 12/21/18 17:38 Dose: 75 mg Digoxin (Lanoxin) 250 mcg PO DAILY [facility] Last Admin: 12/21/18 17:39 Dose: 250 mcg Enoxaparin Sodium (Lovenox) 40 mg SC DAILY@1000 [facility] Gabapentin (Neurontin) 300 mg PO QHS [facility] Last Admin: 12/21/18 22:33 Dose: 300 mg Ceftriaxone Sodium 2 gm/ (Sodium Chloride) 50 mls @ 100 mls/hr IV Q24 [facility] Vancomycin IV Pharmacy to Dose (1 ea/ Sodium Chloride) 500 mls @ 250 mls/hr IV PRN PRN; Protocol PRN Reason: Rx to Dose Vancomycin HCl 750 mg/ Sodium (Chloride) 265 mls @ 250 mls/hr IV Q12H [facility] Last Admin: 12/22/18 06:09 Dose: 250 mls/hr Magnesium Hydroxide (Milk Of Magnesia) 30 ml PO DAILY PRN PRN Reason: Constipation Metoprolol Succinate (Toprol Xl (Beta Eusebio)) 100 mg PO DAILY [facility] Last Admin: 12/21/18 17:39 Dose: 100 mg Ondansetron HCl (Zofran) 4 mg IV Q6H PRN PRN PRN Reason: nausea vomiting Oxycodone HCl (Oxyir) 5 mg PO Q4H PRN PRN PRN Reason: SEVERE PAIN (6-10/10) Last Admin: 12/22/18 06:39 Dose: 5 mg Psyllium Hydrophilic Mucilloid (Metamucil) 1 packet PO DAILY [facility] Last Admin: 12/21/18 20:18 Dose: 1 packet Sodium Chloride () 5 - 15 ml IV UD PRN PRN Reason: SALINE FLUSH Last Admin: 12/22/18 06:09 Dose: 10 ml Warfarin Sodium (Coumadin (Pbkc)) 5 mg PO DAILY@1700 [facility] Last Admin: 12/21/18 17:39 Dose: 5 mg Medical Necessity - Tobacco Use Smoking Status: Never smoker Tobacco Use: Non-smoker Assessment/Plan All Active Problems (Last Reviewed 12/21/18 @ 14:24 by Esvin Rodriguez DO) Cellulitis of scrotum (Acute) Severe sepsis (Acute) Cardiomyopathy, ischemic (Resolved) S/P coronary artery stent placement (Resolved) 1. Severe sepsis Present on admission Clinically improving Secondary to scrotal cellulitis IV fluids Lactic acidosis resolved. 2. Scrotal cellulitis Ongoing. I doubt orchitis as patient testicles normal size on ultrasound Will treat empirically for possible orchitis with ceftriaxone 2 g IV daily Will also start patient on IV vancomycin Keep scrotum elevated No clinical suspicion for gangrene at this time Urology on consult 3. Chronic atrial fibrillation Patient had stopped Coumadin due to a disagreement to his primary provider and cardiology because cardiology wanted him on Plavix and Coumadin but his primary provider did not because of his bleeding tendencies. Discussed with patient about bleeding risk but also the risk of stroke without being on Coumadin. He would prefer to be back on Coumadin and understands the risks of bleeding Will resume Coumadin Continue with digoxin and metoprolol succinate 4. CAD Stable Continue with Plavix, metoprolol 5. DVT prophylaxis with Lovenox until INR is therapeutic Can deescalate to Med Surg status today. Code Visit Inpatient E&M: 99123 Subs Hosp L2
[2018-12-22] MEDS: Acetaminophen 500 MG Tablet 1000 MG PO ×2 (09:57→17:47)
[2018-12-22] MEDS: Digoxin 250 MCG Tablet PO (09:58)
[2018-12-22] MEDS: Clopidogrel Bisulfate 75 MG Tablet PO (09:58)
[2018-12-22] MEDS: Metoprolol(XL)Succ 100 MG Tablet PO (09:59)
[2018-12-22] MEDS: Psyllium 1 PACKET PO (09:59)
[2018-12-22] MEDS: Enoxaparin 40 MG/0.4 ML Syringe SC (10:02)
[2018-12-22 10:37] LABS: Pathologist Review Reviewed
--- NOTE | 2018-12-22 11:13 | CASEMGMT ---
RN CM Assessment Presentation: Severe sepsis, scrotal cellulitis Intro role of CM to patient in room> He is able to participate in RN CM assessment. PCP: Dr. Box [facility]: [facility] Prescription coverage: yes Living Arrangements: Lives independently with son. DME/HHS: no DME use, no home health. Transportation: pt drives. is listed as DPOA, however pt is . Pt states he would like to redo DPOA to have son listed instead. Yina, IAM updated. Rubi LAMAS RN ACM DC PLAN: Home on dc,pt denies any dc needs at this time. Rubi LAMAS RN ACM
--- NOTE | 2018-12-22 12:59 | NURSING ---
report called to nitin antonio
[2018-12-22] MEDS: Gabapentin 300 MG Capsule PO (21:21)
[2018-12-23] VITALS (9 sets, daily range): BP systolic 146–175; BP diastolic 74–80; PULSE 82–122; RESP 18–20; TEMP 36.9–39.4; O2SAT 96–98
[2018-12-23] MEDS: oxyCODONE 5 MG Tablet PO ×4 (00:23→20:30)
[2018-12-23] MEDS: Acetaminophen 500 MG Tablet 1000 MG PO ×3 (03:07→19:24)
[2018-12-23 04:48] LABS: Absolute Lymphocyte Count 0.38 X10^3/ul (0.83-4.51); Absolute Neutrophil Count 6.8 X10^3/uL (2.0-7.7); Basophil# 0.02 X10^3/uL; Basophil% 0.2 % (0-1); Eosinophil# 0.03 X10^3/uL; Eosinophils% 0.4 % (0-5); Hematocrit 37.4 % (40-54); Hemoglobin 12.6 g/dl (13.0-16.5); Lymphocyte # 0.38 X10^3/ul (4.0); Lymphocyte % 4.7 % (19-41); Mean Corp Hgb Conc 33.7 g/gl (32-36); Mean Corpuscular Volume 86.2 fL (80-94); Mean Platelet Vol. 9.3 fl (6.2-12.0); Monocyte# 0.85 X10^3/uL; Monocyte% 10.4 % (0-10); Neutrophil # 6.81 X10^3/uL (2.7-7.7); Neutrophil % 83.6 % (47-70); Platelet Count 190 K/mm3 (150-450); RBC Distribution Width CV 13.9 % (11.6-14.6); RBC Distribution Width SD 42.9 fl (35.1-43.9); Red Blood Count 4.34 M/mm3 (4.6-6.2); White Blood Count 8.2 K/mm3 (4.4-11.0)
[2018-12-23 04:51] LABS: Differential Indicated SCAN CRITERIA MET; POSITIVE COUNT NO; POSITIVE DIFFERENTIAL YES; POSITIVE MORPHOLOGY NO
[2018-12-23 05:04] LABS: Anion Gap 9 (5-15); BUN 18 mg/dL (7-18); BUN/Creat Ratio 18.8 RATIO (10-20); Calcium,Total 8.1 mg/dL (8.5-10.1); Chloride 100 mmol/L (98-107); Creatinine, Serum 0.96 mg/dL (0.70-1.30); EST Glomerular Filtration Rate 86 mL/min (>60); Est Glom Filt Rate - Afr Amer 103 mL/min (>60); Estimated Creatinine Clearance 74.77 ml/min; Glucose 131 mg/dL (74-106); Potassium 3.7 mmol/L (3.5-5.1); Sodium Level 136 mmol/L (136-145)
[2018-12-23 05:20] LABS: Vancomycin, Trough Level 5.8 ug/mL (5.0-15.0)
--- NOTE | 2018-12-23 06:02 | PCM.RX.CS ---
Consult Pharmacy has been consulted to manage selected antiobiotic: Vancomycin Type of Consult: Follow-up Suspected Infection: Sepsis Labs: Sodium 136 mmol/L (136-145) 12/23/18 04:28 Potassium 3.7 mmol/L (3.5-5.1) 12/23/18 04:28 Chloride 100 mmol/L (98-107) 12/23/18 04:28 Carbon Dioxide 27.0 mmol/L (21.0-32.0) 12/23/18 04:28 Anion Gap 9 (5-15) 12/23/18 04:28 BUN 18 mg/dL (7-18) 12/23/18 04:28 Creatinine 0.96 mg/dL (0.70-1.30) 12/23/18 04:28 Est GFR (MDRD) Af Amer 103 mL/min (>60) 12/23/18 04:28 Est GFR (MDRD) Non-Af 86 mL/min (>60) 12/23/18 04:28 BUN/Creatinine Ratio 18.8 RATIO (10-20) 12/23/18 04:28 Glucose 131 mg/dL (74-106) H 12/23/18 04:28 Vancomycin Trough 5.8 ug/mL (5.0-15.0) 12/23/18 04:28 Microbiology: Microbiology 12/21/18 11:35 Urine, Clean Catch Urine Culture - Preliminary Presumptive E. coli Goal Trough: 15-20 mcg/mL Pharmacy Plan for Drug Dosing: Pharmacy Service will continue to monitor and adjust dosing as required. Medications Vancomycin HCl 2,000 mg/ (Sodium Chloride) 540 mls @ 250 mls/hr IV Q12H PEDRO PABLO TROUGH 5.8 NEW DOSE 2000MG Q12H Follow-Up Labs: Trough Vancomycin Labs to be done on [date and time ordered]: 12/25 @ 0500
--- NOTE | 2018-12-23 07:25 | PCM.CONS.U ---
Problem List (1) Orchitis and epididymitis Status: Acute Reason for Consult Date of Consultation: 12/23/18 History of Present Illness: The patient is a 58 year old male who suddenly started having severe pain in the left testicle swelling and redness tenderness he went to the emergency room white blood count was elevated at 31,000 and was found to have a severe testicular orchitis and epididymitis. Cultures were done urine is positive with E. coli. He has been on antibiotics in the hospital and been consulted to see the patient regarding his orchitis. Clinically he is getting better his white count is back down to 8 he states his pain is better but still swollen and tender so red no sign of an abscess formation no surgical indication at this point Past Medical History Past Medical History (Chronic Problems): Chronic Problems (Last Reviewed 12/21/18 @ 14:24 by Esvin Rodriguez DO) Hyperlipidemia (Chronic) HTN (hypertension), benign (Chronic) Persistent atrial fibrillation (Chronic) CAD (coronary artery disease), [place] coronary artery (Chronic) Medical History: Medical History (Last Reviewed 12/23/18 @ 07:26 by Serafin Rod MD) Hyperlipidemia (Chronic) E78.5 HTN (hypertension), benign (Chronic) I10 Persistent atrial fibrillation (Chronic) I48.1 Cardiomyopathy, ischemic (Resolved) I25.5 CAD (coronary artery disease), [place] coronary artery (Chronic) I25.10 Allergies atorvastatin calcium [From Lipitor] Allergy (Verified 12/21/18 09:07) Unknown fenofibrate nanocrystallized [From Tricor] Allergy (Verified 12/21/18 09:07) Unknown fenofibrate,micronized [From Tricor] Allergy (Verified 12/21/18 09:07) Unknown pravastatin sodium [From Pravachol] Allergy (Verified 12/21/18 09:07) Unknown rosuvastatin calcium [From Crestor] Allergy (Verified 12/21/18 09:07) Unknown simvastatin [From Zocor] Allergy (Verified 12/21/18 09:07) Unknown Home Medications: Ambulatory Orders Medication Instructions Recorded warfarin 5 mg tablet 5 mg PO DAILY #90 tab 11/06/17 clopidogrel 75 mg tablet 75 mg PO DAILY #90 tab 05/19/18 digoxin 250 mcg tablet 250 mcg PO DAILY #90 tab 05/19/18 losartan 100 1 tab PO QDAY #90 tab 05/19/18 mg-hydrochlorothiazide 25 mg tablet metoprolol succinate ER 100 mg 100 mg PO QDAY #90 tab 05/19/18 tablet,extended release 24 hr Gabapentin [Neurontin] 300 mg PO QHS 12/21/18 Psyllium Husk [Metamucil] 0.4 gm PO DAILY 12/21/18 Surgical History: Surgical History (Last Reviewed 12/23/18 @ 07:26 by Serafin Rod MD) S/P coronary artery stent placement (Resolved) Z95.5 LAD 2008, LAD 2012 Surgical History: no surgical history Smoking Status: Never smoker Tobacco Use: Non-smoker Alcohol: None Drugs: None - *Family History Paternal History Items: Heart Disease Review of Systems Constitutional: Reports: Chills, Fever. Denies: Weight Change HEENT: Denies: Head Aches, Sinus Congestion, Sinus Drainage Cardiovascular: Denies: Chest Pain, Palpitations Respiratory: Denies: Cough, Shortness of breath at rest, Sputum production Gastrointestinal: Denies: Abdominal Pain, Nausea, Vomiting Genitourinary: Reports: - - Left testicle swollen and tender. Denies: Dysuria Musculoskeletal: Denies: Joint Pain, Joint Tenderness Skin: Denies: Rash, Wounds Neurological: Denies: Numbness, Tingling, Focal weakness Psychiatric: Denies: Anxiety, Depression, Homicidal Ideations, Suicidal Ideations Hematologic/ Lymphatic: Denies: Easy Bruising, Easy Bleeding Physical Exam - Physical Exam Vital Signs Temp 99.5 F H 12/23/18 04:28 Pulse 111 H 12/23/18 03:06 Resp 20 H 12/23/18 03:06 BP 154/75 H 12/23/18 03:06 Pulse Ox 96 12/23/18 03:06 Intake & Output 12/21/18 12/22/18 12/23/18 23:59 23:59 23:59 Intake Total 1830 / 1830 1835 / 1835 1807 / 1807 Output Total 300 / 300 2150 / 2150 975 / 975 Balance 1530 / 1530 -315 / -315 832 / 832 Weight: 97 kg Intake: Oral 620 / 620 820 / 820 1070 / 1070 IV fluid/meds 1210 / 1210 1015 / 1015 737 / 737 Output: Urine 300 / 300 2150 / 2150 975 / 975 General: Alert, Oriented x3 HEENT: Atraumatic Oral: Moist Mucosa Neck: Supple Lungs: Normal air movement Cardiovascular: Regular rate Abdomen: Soft Rectal: Exam deferred Testicle: Left Enlarged, Left Tender, Left Swollen Epididymis: Left Enlarged, Left Tender Penis: Circumcised Groin: No hernia Skin: No rashes Musculoskeletal: No Tenderness to Palpation of Joints or Extremities Lymphatic: No Cervical, Supraclavicular, or Inguinal Adenopathy Psych/Mental Status: Normal Affect Microbiology Past 72 Hours 12/21/18 11:35 Urine Culture - Preliminary Urine, Clean Catch Presumptive E. coli Laboratory Tests Past 24 Hrs 12/21/18 12/23/18 12/23/18 09:40 04:28 04:28 WBC 8.2 RBC 4.34 L Hgb 12.6 L Hct 37.4 L MCV 86.2 MCH 29.0 MCHC 33.7 RDW 13.9 RDW Differential 42.9 Plt Count 190 MPV 9.3 Immature Gran % (Auto) 0.700 Neut % (Auto) 83.6 H Lymph % (Auto) 4.7 L [place] % (Auto) 10.4 H Eos % (Auto) 0.4 Baso % (Auto) 0.2 Absolute Neuts (auto) 6.8 Absolute Lymphs (auto) 0.38 L Total Counted Not Reportable Diff Path Review Reviewed Sodium Potassium Chloride Carbon Dioxide Anion Gap BUN Creatinine Estim Creat Clear Calc Est GFR (MDRD) Af Amer Est GFR (MDRD) Non-Af BUN/Creatinine Ratio Glucose Calcium Vancomycin Trough 5.8 12/23/18 04:28 WBC RBC Hgb Hct MCV MCH MCHC RDW RDW Differential Plt Count MPV Immature Gran % (Auto) Neut % (Auto) Lymph % (Auto) [place] % (Auto) Eos % (Auto) Baso % (Auto) Absolute Neuts (auto) Absolute Lymphs (auto) Total Counted Diff Path Review Sodium 136 Potassium 3.7 Chloride 100 Carbon Dioxide 27.0 Anion Gap 9 BUN 18 Creatinine 0.96 Estim Creat Clear Calc 74.77 Est GFR (MDRD) Af Amer 103 Est GFR (MDRD) Non-Af 86 BUN/Creatinine Ratio 18.8 Glucose 131 H Calcium 8.1 L Vancomycin Trough Assessment/Plan All Active Problems (Last Reviewed 12/21/18 @ 14:24 by Esvin Jopperi, DO) Cellulitis of scrotum (Acute) Severe sepsis (Acute) Orchitis and epididymitis (Acute) Cardiomyopathy, ischemic (Resolved) S/P coronary artery stent placement (Resolved) 58-year-old male presents to the hospital with left eorchitis swollen testicle on exam he does not have an abscess but he does have a large swollen testicle this is been a take quite some time deferred to resolve but he is improving already, I do not see any surgical indication at this point he continues to improve with IV antibiotics once he is stable he can transition to oral antibiotics and be discharged home with a course of 10 days of oral antibiotics if any questions please give me a call.
--- NOTE | 2018-12-23 09:02 | PCM.PN.HOSP ---
Patient Problems: Active and Suspected Problems (Last Reviewed 12/23/18 @ 07:26 by Serafin Rod MD) Cellulitis of scrotum (Acute) Severe sepsis (Acute) Orchitis and epididymitis (Acute) Subjective: Still feeling ill and tired. Pain in right scrotum improved, but cut off tender glass. Vitals/I&O's: Vital Signs Temp Pulse Resp BP Pulse Ox 37.5 C H 111 H 20 H 154/75 H 96 12/23/18 04:28 12/23/18 03:06 12/23/18 03:06 12/23/18 03:06 12/23/18 03:06 Oxygen Delivery Method Room Air Weight: 97 kg Body Mass Index (BMI) 34.4 Intake and Output for Last 24 Hours 12/21/18 12/22/18 12/23/18 23:59 23:59 23:59 Intake Total 1830 / 1830 1835 / 1835 1807 / 1807 Output Total 300 / 300 2150 / 2150 975 / 975 Balance 1530 / 1530 -315 / -315 832 / 832 General: Alert, Cooperative, - - diaphoretic. febrile. HEENT: Atraumatic, Normocephalic Oral: Moist Mucosa, No Gingival or Mucosal Lesions/ Ulcerations Neck: No Nodes, Thyroid Normal Size and Texture Lungs: Clear to auscultation, Normal air movement, No rhonchi, No wheeze Cardiovascular: Regular rate, Regular Rhythm, Normal S1, Normal S2 Abdomen: Bowel Sounds Present, Soft, Non Tender, Non-Distended Extremities: No edema, No Calf Tenderness Skin: No rashes, No breakdown Psych/Mental Status: Normal Affect, Appropriate Microbiology Past 72 Hours 12/21/18 11:35 Urine, Clean Catch Urine Culture - Final Presumptive E. coli Laboratory Results 12/21/18 09:40: Diff Path Review Reviewed 12/23/18 04:28: Vancomycin Trough 5.8 12/23/18 04:28: WBC 8.2, RBC 4.34 L, Hgb 12.6 L, Hct 37.4 L, MCV 86.2, MCH 29.0, MCHC 33.7, RDW 13.9, RDW Differential 42.9, Plt Count 190, MPV 9.3, Immature Gran % (Auto) 0.700, Neut % (Auto) 83.6 H, Lymph % (Auto) 4.7 L, [place] % (Auto) 10.4 H, Eos % (Auto) 0.4, Baso % (Auto) 0.2, Absolute Neuts (auto) 6.8, Absolute Lymphs (auto) 0.38 L, Total Counted Not Reportable 12/23/18 04:28: Sodium 136, Potassium 3.7, Chloride 100, Carbon Dioxide 27.0, Anion Gap 9, BUN 18, Creatinine 0.96, Estim Creat Clear Calc 74.77, Est GFR (MDRD) Af Amer 103, Est GFR (MDRD) Non-Af 86, BUN/Creatinine Ratio 18.8, Glucose 131 H, Calcium 8.1 L Current Medications Acetaminophen (Tylenol) 1,000 mg PO Q8H PRN PRN PRN Reason: pain. fever. Last Admin: 12/23/18 03:07 Dose: 1,000 mg Clopidogrel Bisulfate (Plavix) 75 mg PO DAILY [facility] Last Admin: 12/22/18 09:58 Dose: 75 mg Digoxin (Lanoxin) 250 mcg PO DAILY [facility] Last Admin: 12/22/18 09:58 Dose: 250 mcg Enoxaparin Sodium (Lovenox) 40 mg SC DAILY@1000 [facility] Last Admin: 12/22/18 10:02 Dose: 40 mg Gabapentin (Neurontin) 300 mg PO QHS [facility] Last Admin: 12/22/18 21:21 Dose: 300 mg Ceftriaxone Sodium 2 gm/ (Sodium Chloride) 50 mls @ 100 mls/hr IV Q24 [facility] Last Admin: 12/22/18 10:10 Dose: 100 mls/hr Vancomycin IV Pharmacy to Dose (1 ea/ Sodium Chloride) 500 mls @ 250 mls/hr IV PRN PRN; Protocol PRN Reason: Rx to Dose Vancomycin HCl 2,000 mg/ (Sodium Chloride) 540 mls @ 250 mls/hr IV Q12H [facility] Magnesium Hydroxide (Milk Of Magnesia) 30 ml PO DAILY PRN PRN Reason: Constipation Metoprolol Succinate (Toprol Xl (Beta Eusebio)) 100 mg PO DAILY [facility] Last Admin: 12/22/18 09:59 Dose: 100 mg Ondansetron HCl (Zofran) 4 mg IV Q6H PRN PRN PRN Reason: nausea vomiting Oxycodone HCl (Oxyir) 5 mg PO Q4H PRN PRN PRN Reason: SEVERE PAIN (6-10/10) Last Admin: 12/23/18 04:33 Dose: 5 mg Psyllium Hydrophilic Mucilloid (Metamucil) 1 packet PO DAILY [facility] Last Admin: 12/22/18 09:59 Dose: 1 packet Sodium Chloride () 5 - 15 ml IV UD PRN PRN Reason: SALINE FLUSH Last Admin: 12/22/18 17:07 Dose: 10 ml Warfarin Sodium (Coumadin (Pbkc)) 5 mg PO DAILY@1700 [facility] Last Admin: 12/22/18 17:07 Dose: 5 mg Medical Necessity - Tobacco Use Smoking Status: Never smoker Tobacco Use: Non-smoker Assessment/Plan All Active Problems (Last Reviewed 12/23/18 @ 07:26 by Serafin Rod MD) Cellulitis of scrotum (Acute) Severe sepsis (Acute) Orchitis and epididymitis (Acute) Cardiomyopathy, ischemic (Resolved) S/P coronary artery stent placement (Resolved) 1. Severe sepsis Present on admission Clinically improving Secondary to scrotal cellulitis IV fluids Lactic acidosis resolved. still with high fevers 2. Scrotal cellulitis Ongoing. [place] to be orchitis by Will treat empirically for possible orchitis with ceftriaxone 2 g IV daily Will also start patient on IV vancomycin Keep scrotum elevated No clinical suspicion for gangrene at this time Urology on consult, no need for surgery at this time. transition to oral abx once medically stabilized. Will check abdominal CT today, given persistent fevers and abdominal pain. 3. Chronic atrial fibrillation Patient had stopped Coumadin due to a disagreement to his primary provider and cardiology because cardiology wanted him on Plavix and Coumadin but his primary provider did not because of his bleeding tendencies. Discussed with patient about bleeding risk but also the risk of stroke without being on Coumadin. He would prefer to be back on Coumadin and understands the risks of bleeding Will resume Coumadin Continue with digoxin and metoprolol succinate 4. CAD Stable Continue with Plavix, metoprolol 5. DVT prophylaxis with Lovenox until INR is therapeutic Code Visit Inpatient E&M: 02812 [facility] Hosp L2
--- NOTE | 2018-12-23 09:09 | PN_ITS ---
Patient Problems: Active and Suspected Problems (Last Reviewed 12/23/18 @ 07:26 by Serafin Rod MD) Cellulitis of scrotum (Acute) Severe sepsis (Acute) Orchitis and epididymitis (Acute) Subjective: Still feeling ill and tired. 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 Vitals/I&O's: Vital Signs Temp Pulse Resp BP Pulse Ox 37.5 C H 111 H 20 H 154/75 H 96 12/23/18 04:28 12/23/18 03:06 12/23/18 03:06 12/23/18 03:06 12/23/18 03:06 Oxygen Delivery Method Room Air Weight: 97 kg Body Mass Index (BMI) 34.4 Intake and Output for Last 24 Hours 12/21/18 12/22/18 12/23/18 23:59 23:59 23:59 Intake Total 1830 / 1830 1835 / 1835 1807 / 1807 Output Total 300 / 300 2150 / 2150 975 / 975 Balance 1530 / 1530 -315 / -315 832 / 832 General: Alert, Cooperative, - - diaphoretic. febrile. HEENT: Atraumatic, Normocephalic Oral: Moist Mucosa, No Gingival or Mucosal Lesions/ Ulcerations Neck: No Nodes, Thyroid Normal Size and Texture Lungs: Clear to auscultation, Normal air movement, No rhonchi, No wheeze Cardiovascular: Regular rate, Regular Rhythm, Normal S1, Normal S2 Abdomen: Bowel Sounds Present, Soft, Non Tender, Non-Distended Extremities: No edema, No Calf Tenderness Skin: No rashes, No breakdown Psych/Mental Status: Normal Affect, Appropriate Microbiology Past 72 Hours 12/21/18 11:35 Urine, Clean Catch Urine Culture - Final Presumptive E. coli Laboratory Results 12/21/18 09:40: Diff Path Review Reviewed 12/23/18 04:28: Vancomycin Trough 5.8 12/23/18 04:28: WBC 8.2, RBC 4.34 L, Hgb 12.6 L, Hct 37.4 L, MCV 86.2, MCH 29.0, MCHC 33.7, RDW 13.9, RDW Differential 42.9, Plt Count 190, MPV 9.3, Immature Gran % (Auto) 0.700, Neut % (Auto) 83.6 H, Lymph % (Auto) 4.7 L, [place] % (Auto) 10.4 H, Eos % (Auto) 0.4, Baso % (Auto) 0.2, Absolute Neuts (auto) 6.8, Absolute Lymphs (auto) 0.38 L, Total Counted Not Reportable 12/23/18 04:28: Sodium 136, Potassium 3.7, Chloride 100, Carbon Dioxide 27.0, Anion Gap 9, BUN 18, Creatinine 0.96, Estim Creat Clear Calc 74.77, Est GFR (MDRD) Af Amer 103, Est GFR (MDRD) Non-Af 86, BUN/Creatinine Ratio 18.8, Glucose 131 H, Calcium 8.1 L Current Medications Acetaminophen (Tylenol) 1,000 mg PO Q8H PRN PRN PRN Reason: pain. fever. Last Admin: 12/23/18 03:07 Dose: 1,000 mg Clopidogrel Bisulfate (Plavix) 75 mg PO DAILY PENDING SALE TO [facility] Last Admin: 12/22/18 09:58 Dose: 75 mg Digoxin (Lanoxin) 250 mcg PO DAILY PENDING SALE TO [facility] Last Admin: 12/22/18 09:58 Dose: 250 mcg Enoxaparin Sodium (Lovenox) 40 mg SC DAILY@1000 PENDING SALE TO [facility] Last Admin: 12/22/18 10:02 Dose: 40 mg Gabapentin (Neurontin) 300 mg PO QHS PENDING SALE TO [facility] Last Admin: 12/22/18 21:21 Dose: 300 mg Ceftriaxone Sodium 2 gm/ (Sodium Chloride) 50 mls @ 100 mls/hr IV Q24 PENDING SALE TO [facility] Last Admin: 12/22/18 10:10 Dose: 100 mls/hr Vancomycin IV Pharmacy to Dose (1 ea/ Sodium Chloride) 500 mls @ 250 mls/hr IV PRN PRN; Protocol PRN Reason: Rx to Dose Vancomycin HCl 2,000 mg/ (Sodium Chloride) 540 mls @ 250 mls/hr IV Q12H PENDING SALE TO [facility] Magnesium Hydroxide (Milk Of Magnesia) 30 ml PO DAILY PRN PRN Reason: Constipation Metoprolol Succinate (Toprol Xl (Beta Eusebio)) 100 mg PO DAILY PENDING SALE TO [facility] Last Admin: 12/22/18 09:59 Dose: 100 mg Ondansetron HCl (Zofran) 4 mg IV Q6H PRN PRN PRN Reason: nausea vomiting Oxycodone HCl (Oxyir) 5 mg PO Q4H PRN PRN PRN Reason: SEVERE PAIN (6-10/10) Last Admin: 12/23/18 04:33 Dose: 5 mg Psyllium Hydrophilic Mucilloid (Metamucil) 1 packet PO DAILY PENDING SALE TO [facility] Last Admin: 12/22/18 09:59 Dose: 1 packet Sodium Chloride () 5 - 15 ml IV UD PRN PRN Reason: SALINE FLUSH Last Admin: 12/22/18 17:07 Dose: 10 ml Warfarin Sodium (Coumadin (Pbkc)) 5 mg PO DAILY@1700 PENDING SALE TO [facility] Last Admin: 12/22/18 17:07 Dose: 5 mg Medical Necessity - Tobacco Use Smoking Status: Never smoker Tobacco Use: Non-smoker Assessment/Plan All Active Problems (Last Reviewed 12/23/18 @ 07:26 by Serafin Rod MD) Cellulitis of scrotum (Acute) Severe sepsis (Acute) Orchitis and epididymitis (Acute) Cardiomyopathy, ischemic (Resolved) S/P coronary artery stent placement (Resolved) 1. Severe sepsis Present on admission Clinically improving Secondary to scrotal cellulitis IV fluids Lactic acidosis resolved. still with high fevers 2. Scrotal cellulitis Ongoing. [place] to be orchitis by Will treat empirically for possible orchitis with ceftriaxone 2 g IV daily Will also start patient on IV vancomycin Keep scrotum elevated No clinical suspicion for gangrene at this time Urology on consult, no need for surgery at this time. transition to oral abx once medically stabilized. Will check abdominal CT today, given persistent fevers and abdominal pain. 3. Chronic atrial fibrillation Patient had stopped Coumadin due to a disagreement to his primary provider and cardiology because cardiology wanted him on Plavix and Coumadin but his primary provider did not because of his bleeding tendencies. Discussed with patient about bleeding risk but also the risk of stroke without being on Coumadin. He would prefer to be back on Coumadin and understands the risks of bleeding Will resume Coumadin Continue with digoxin and metoprolol succinate 4. CAD Stable Continue with Plavix, metoprolol 5. DVT prophylaxis with Lovenox until INR is therapeutic Code Visit Inpatient E&M: 74253 [facility] L2
--- NOTE | 2018-12-23 09:11 | CT_ITS ---
STUDY: CT ABDOMEN AND PELVIS WITH CONTRAST REASON FOR EXAM: Male, 58 years old. Left testicular swelling. RADIATION DOSAGE (If Supplied By Facility): CTDIvol = ( 16.97 ) mGy, DLP = ( 1821.54 ) mGycm TECHNIQUE: Transaxial images were obtained from the dome of the diaphragm to the symphysis pubis with oral contrast. 100 ml of Isovue 300 contrast was administered. Sagittal and coronal images were reconstructed. Individualized dose optimization techniques were used for this CT. COMPARISON: None. FINDINGS: Mild increased markings at the lung bases suggests a mild degree of bibasilar atelectasis. The visualized portions of the heart are within normal limits. Normal liver. There are multiple small gallstones. Normal spleen. Normal pancreas. Normal bilateral adrenal glands. Normal right kidney. Normal left kidney. Normal visualized stomach. Normal small intestine. There are scattered colonic diverticula consistent with diverticulosis. The appendix is visualized and appears normal. There is scattered atherosclerotic calcification of the abdominal aorta, without a demonstrated aneurysm. Normal inferior vena cava. Normal retroperitoneum. Normal urinary bladder. Increased vascularity in the left hemiscrotum. Left scrotal thickening. Small bilateral inguinal hernias containing fat. There are degenerative changes of the visualized lumbar spine. CT/Abdomen/Pelvis WITH Contrast IMPRESSION: Mild degree of bibasilar atelectasis. Small left hydrocele with increased vascularity within the hemiscrotum and skin thickening. Small gallstones. Electronically Signed: Saleem Warren MD at 12:38 EST , Service support ,
[2018-12-23 09:56] LABS: International Normalized Ratio 1.2; Prothrombin Time (Protime)PT. 15.1 SECONDS (11.7-14.9)
[2018-12-23] MEDS: Enoxaparin 40 MG/0.4 ML Syringe SC (10:16)
[2018-12-23] MEDS: Psyllium 1 PACKET PO (10:16)
[2018-12-23] MEDS: Digoxin 250 MCG Tablet PO (10:17)
[2018-12-23] MEDS: Metoprolol(XL)Succ 100 MG Tablet PO (10:18)
[2018-12-23] MEDS: Clopidogrel Bisulfate 75 MG Tablet PO (10:18)
--- NOTE | 2018-12-23 13:47 | CASEMGMT ---
SW assisted pt in completing LW/POA forms. SW placed copies of the forms on the chart and gave pt originals with copies for his children. MARISABEL Marie, ADMINISTRATIVE ASSISTANT FRONT DESK
[2018-12-23] MEDS: Gabapentin 300 MG Capsule PO (22:02)
[2018-12-24] MEDS: oxyCODONE 5 MG Tablet PO ×2 (00:52→05:44)
[2018-12-24 00:54] VITALS: TEMP 36.8
[2018-12-24 04:11] VITALS: BP 151/84; PULSE 116; RESP 16; TEMP 37.2; O2SAT 99
[2018-12-24] MEDS: Acetaminophen 500 MG Tablet 1000 MG PO (05:44)
[2018-12-24 05:57] LABS: International Normalized Ratio 1.2; Prothrombin Time (Protime)PT. 15.5 SECONDS (11.7-14.9)
[2018-12-24 05:59] LABS: Absolute Lymphocyte Count 0.77 X10^3/ul (0.83-4.51); Absolute Neutrophil Count 5.5 X10^3/uL (2.0-7.7); Basophil# 0.01 X10^3/uL; Basophil% 0.1 % (0-1); Eosinophil# 0.09 X10^3/uL; Eosinophils% 1.2 % (0-5); Hematocrit 40.6 % (40-54); Hemoglobin 13.8 g/dl (13.0-16.5); Lymphocyte # 0.77 X10^3/ul (4.0); Lymphocyte % 10.4 % (19-41); Mean Corpuscular Hgb 29.4 pg (27.0-32.0); Mean Corpuscular Volume 86.6 fL (80-94); Mean Platelet Vol. 9.7 fl (6.2-12.0); Monocyte# 0.96 X10^3/uL; Neutrophil # 5.48 X10^3/uL (2.7-7.7); Neutrophil % 74.5 % (47-70); Platelet Count 190 K/mm3 (150-450); RBC Distribution Width CV 13.9 % (11.6-14.6); RBC Distribution Width SD 42.7 fl (35.1-43.9); Red Blood Count 4.69 M/mm3 (4.6-6.2); White Blood Count 7.4 K/mm3 (4.4-11.0)
[2018-12-24 06:07] LABS: POSITIVE COUNT NO; POSITIVE DIFFERENTIAL NO; POSITIVE MORPHOLOGY NO
[2018-12-24 06:11] LABS: Anion Gap 9 (5-15); BUN 18 mg/dL (7-18); BUN/Creat Ratio 18.7 RATIO (10-20); Calcium,Total 8.6 mg/dL (8.5-10.1); Chloride 103 mmol/L (98-107); Creatinine, Serum 0.96 mg/dL (0.70-1.30); EST Glomerular Filtration Rate 85 mL/min (>60); Est Glom Filt Rate - Afr Amer 102 mL/min (>60); Estimated Creatinine Clearance 74.77 ml/min; Glucose 123 mg/dL (74-106); Potassium 3.8 mmol/L (3.5-5.1); Sodium Level 139 mmol/L (136-145)
[2018-12-24 07:30] VITALS: O2SAT 94
--- NOTE | 2018-12-24 09:01 | DCINST_ITS ---
- Discharge Diagnoses Current Active Problems: Current Active and Chronic Problems (Last Reviewed 12/23/18 @ 07:26 by Serafin Rod MD) Cellulitis of scrotum (Acute) Severe sepsis (Acute) Orchitis and epididymitis (Acute) You will use the following diet at home:: Cardiac Your food should be the consistency of: Regular Your liquids should be the consistency of: Regular/Thin Discharge Activity: Return to Normal Activity, May not drive while taking narcotic pain medications. Return to work on:: 12/28/18 Call your doctor if your incision/area has: Increased Pain/ Swelling, Increased Redness Call your doctor if you observe: Fever of 101 or Higher Allergies/Adverse Reactions: Allergies atorvastatin calcium [From Lipitor] Allergy (Verified 12/21/18 09:07) Unknown fenofibrate nanocrystallized [From Tricor] Allergy (Verified 12/21/18 09:07) Unknown fenofibrate,micronized [From Tricor] Allergy (Verified 12/21/18 09:07) Unknown pravastatin sodium [From Pravachol] Allergy (Verified 12/21/18 09:07) Unknown rosuvastatin calcium [From Crestor] Allergy (Verified 12/21/18 09:07) Unknown simvastatin [From Zocor] Allergy (Verified 12/21/18 09:07) Unknown Medications to take at Discharge warfarin 5 mg tablet 5 mg PO DAILY #90 tab 11/06/17 clopidogrel 75 mg tablet 75 mg PO DAILY #90 tab 05/19/18 digoxin 250 mcg tablet 250 mcg PO DAILY #90 tab 05/19/18 losartan 100 mg-hydrochlorothiazide 25 mg tablet 1 tab PO QDAY #90 tab 05/19/18 metoprolol succinate ER 100 mg tablet,extended release 24 hr 100 mg PO QDAY #90 tab 05/19/18 Gabapentin [Neurontin] 300 mg PO QHS 12/21/18 Psyllium Husk [Metamucil] 0.4 gm PO DAILY 12/21/18 Acetaminophen [Tylenol] 1,000 mg PO Q8H PRN PRN tablet 12/24/18 Oxycodone [Oxyir] 5 mg PO Q6H PRN 3 Days #12 tablet 12/24/18 Smz/Tmp Ds [Bactrim Ds] 1 tablet PO BID #20 tablet 12/24/18 The following prescriptions were given: Smz/Tmp Ds [Bactrim Ds] 1 tablet PO BID #20 tablet Oxycodone [Oxyir] 5 mg PO Q6H PRN 3 Days #12 tablet PRN Reason: Severe Pain (6-09/09) Orders to be completed after discharge: Prothrombin Time w/INR Time Frame: 1 Week, Location: Laboratory Prothrombin Time w/INR Time Frame: 2 Weeks, Location: Laboratory Primary Care Physician: Neto Box MD [Primary Care Provider] - Within 2 Weeks Test Results: Test results from this visit will be discussed in further detail at your follow- up appointment, if applicable. Please Follow Up With: Serafin Rod MD - Urology. Call for appointment. When: 2-4 weeks. Proposed Discharge Date: 12/24/18
--- NOTE | 2018-12-24 09:02 | PCM.DC.SUM ---
Discharge Date and Diagnosis - Problem List Patient Problems: Active and Suspected Problems (Last Reviewed 12/23/18 @ 07:26 by Serafin Rod MD) Severe sepsis (Acute) Orchitis and epididymitis (Acute) Date of Admission: 12/21/18 Date of Discharge: 12/24/18 - Primary Discharge Diagnosis Active and Suspected Problems (Last Reviewed 12/23/18 @ 07:26 by Serafin Rod MD) Cellulitis of scrotum (Acute) Severe sepsis (Acute) Orchitis and epididymitis (Acute) - Secondary Discharge Diagnosis Chronic Problems (Last Reviewed 12/23/18 @ 07:26 by Serafin Rod MD) Hyperlipidemia (Chronic) HTN (hypertension), benign (Chronic) Persistent atrial fibrillation (Chronic) CAD (coronary artery disease), [place] coronary artery (Chronic) Hospital Course and Treatment Imaging Results: Clinical Impression(s) from Imaging Studies Testicular Ultrasound 12/21/18 09:32 IMPRESSION: Enlargement of the left epididymis with increased vascularity suggestive of epididymitis. Bilateral hydroceles left greater than right. Electronically Signed: Saleem Warren MD at 11:15 EST Tel [phone], Service support , Abdomen/Pelvis CT 12/23/18 09:11 IMPRESSION: Mild degree of bibasilar atelectasis. Small left hydrocele with increased vascularity within the hemiscrotum and skin thickening. Small gallstones. Electronically Signed: Saleem Warren MD at 12:38 EST , Service support , Navjot Rod MD: Urology. Operations: None Procedures: None Summary of Care Provided: The patient is a 58 year old M presents with testicular swelling. Patient presented with severe sepsis attic acid of 2.2 tachycardia and tachypnea upon arrival. This is due to left-sided orchitis. Initially felt to be related with cellulitis but urology felt more related with orchitis.. Patient was started on Rocephin as well as vancomycin and gradually improved. Patient was having some fevers still. Possible etiology of the arthritis could been some prostatitis that migrated. Patient will be on Bactrim DS 1 tablet twice daily for 10days. Patient will follow up with urology for further evaluation. Urine culture did show E. coli that if the Bactrim. Not using fluoroquinolones given the patient's concomitant digoxin use. Today, the patient is feeling much better still has some tenderness and some swelling but much improved from previous. Patient was restarted back on Coumadin. 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 His photovoltaic technician recommended he be on Coumadin as well as his Plavix and the primary provider recommended against concomitant use of Coumadin and Plavix. This is according to the patient. Patient was restarted back on his Coumadin his INR has been subtherapeutic but likely due to with the Bactrim his INR will go up rather quickly and patient will have a follow-up INR is in the coming weeks with the results to his photovoltaic technician. [] Patient Problems: Active and Suspected Problems (Last Reviewed 12/23/18 @ 07:26 by Serafin Rod MD) Severe sepsis (Acute) Orchitis and epididymitis (Acute) Objective: Decreased erythema of the scrotum - Physical Exam General: Alert, No apparent distress HEENT: Atraumatic, Normocephalic Oral: Moist Mucosa, No Gingival or Mucosal Lesions/ Ulcerations Neck: No Nodes, Thyroid Normal Size and Texture Lungs: Clear to auscultation, Normal air movement, No rhonchi, No wheeze Cardiovascular: Regular rate, Regular Rhythm, Normal S1, Normal S2, No murmurs Abdomen: Bowel Sounds Present, Soft, Non Tender, Non-Distended, No Hepato-splenomegaly Extremities: No edema, No Calf Tenderness Vital Signs Temp Pulse Resp BP Pulse Ox 37.2 C 116 H 16 151/84 H 94 12/24/18 04:11 12/24/18 04:11 12/24/18 04:11 12/24/18 04:11 12/24/18 07:30 Oxygen Delivery Method Room Air Weight: 97 kg Body Mass Index (BMI) 34.4 Intake and Output for Last 24 Hours 12/22/18 12/23/18 12/24/18 23:59 23:59 23:59 Intake Total 1835 / 1835 2820 / 2820 2225 / 2225 Output Total 2150 / 2150 2825 / 2825 625 / 625 Balance -315 / -315 -5 / -5 1600 / 1600 Microbiology Past 72 Hours 12/21/18 10:37 Blood Culture - Preliminary Blood Culture (Wb) - Left Hand No growth in 48 hours. 12/21/18 10:18 Blood Culture - Preliminary Blood Culture (Wb) - Anticubital Right No growth in 48 hours. 12/21/18 11:35 Urine Culture - Final Urine, Clean Catch Presumptive E. coli Laboratory Tests Past 24 Hrs 12/23/18 12/24/18 12/24/18 09:30 05:18 05:18 WBC 7.4 RBC 4.69 Hgb 13.8 Hct 40.6 MCV 86.6 MCH 29.4 MCHC 34.0 RDW 13.9 RDW Differential 42.7 Plt Count 190 MPV 9.7 Immature Gran % (Auto) 0.800 Neut % (Auto) 74.5 H Lymph % (Auto) 10.4 L [place] % (Auto) 13.0 H Eos % (Auto) 1.2 Baso % (Auto) 0.1 Absolute Neuts (auto) 5.5 Absolute Lymphs (auto) 0.77 L Total Counted Not Reportable PT 15.1 H 15.5 H INR 1.2 1.2 Sodium Potassium Chloride Carbon Dioxide Anion Gap BUN Creatinine Estim Creat Clear Calc Est GFR (MDRD) Af Amer Est GFR (MDRD) Non-Af BUN/Creatinine Ratio Glucose Calcium 12/24/18 05:18 WBC RBC Hgb Hct MCV MCH MCHC RDW RDW Differential Plt Count MPV Immature Gran % (Auto) Neut % (Auto) Lymph % (Auto) [place] % (Auto) Eos % (Auto) Baso % (Auto) Absolute Neuts (auto) Absolute Lymphs (auto) Total Counted PT INR Sodium 139 Potassium 3.8 Chloride 103 Carbon Dioxide 27.0 Anion Gap 9 BUN 18 Creatinine 0.96 Estim Creat Clear Calc 74.77 Est GFR (MDRD) Af Amer 102 Est GFR (MDRD) Non-Af 85 BUN/Creatinine Ratio 18.7 Glucose 123 H Calcium 8.6 Discharge Diet: Low fat/ Low Cholesterol Discharge Activity: Return to Normal Activity, May not drive while taking narcotic pain medications. Return to work on:: 12/28/18 Call your doctor if your incision/area has: Increased Pain/ Swelling, Increased Redness Call your doctor if you observe: Fever of 101 or Higher Home Medications: Medications to take at Discharge warfarin 5 mg tablet 5 mg PO DAILY #90 tab 11/06/17 clopidogrel 75 mg tablet 75 mg PO DAILY #90 tab 05/19/18 digoxin 250 mcg tablet 250 mcg PO DAILY #90 tab 05/19/18 losartan 100 mg-hydrochlorothiazide 25 mg tablet 1 tab PO QDAY #90 tab 05/19/18 metoprolol succinate ER 100 mg tablet,extended release 24 hr 100 mg PO QDAY #90 tab 05/19/18 Gabapentin [Neurontin] 300 mg PO QHS 12/21/18 Psyllium Husk [Metamucil] 0.4 gm PO DAILY 12/21/18 Acetaminophen [Tylenol] 1,000 mg PO Q8H PRN PRN tablet 12/24/18 Oxycodone [Oxyir] 5 mg PO Q6H PRN 3 Days #12 tablet 12/24/18 Smz/Tmp Ds [Bactrim Ds] 1 tablet PO BID #20 tablet 12/24/18 Following Prescrptions Were Given to Patient: Smz/Tmp Ds [Bactrim Ds] 1 tablet PO BID #20 tablet Oxycodone [Oxyir] 5 mg PO Q6H PRN 3 Days #12 tablet PRN Reason: Severe Pain (6-10/10) Other Amb Orders: Prothrombin Time w/INR Time Frame: 1 Week, Location: Laboratory Prothrombin Time w/INR Time Frame: 2 Weeks, Location: Laboratory Primary Care Physician: Neto Box MD [Primary Care Provider] - Within 2 Weeks Please Follow Up With: Serafin Rod MD - Urology. Call for appointment. When: 2-4 weeks. Disposition: Home Minutes spent on discharge:: 35 Patient Condition:: Good Medical Necessity - Tobacco Use Smoking Status: Never smoker Tobacco Use: Non-smoker Meaningful Use Info Meaningful Use Diagnoses (Choose all that apply): None applicable Code Visit Inpatient E&M: 60229 Dis[facility] Hosp
--- NOTE | 2018-12-24 09:06 | DS.PCM_ITS ---
Discharge Date and Diagnosis - Problem List Patient Problems: Active and Suspected Problems (Last Reviewed 12/23/18 @ 07:26 by Serafin Rod MD) Severe sepsis (Acute) Orchitis and epididymitis (Acute) Date of Admission: 12/21/18 Date of Discharge: 12/24/18 - Primary Discharge Diagnosis Active and Suspected Problems (Last Reviewed 12/23/18 @ 07:26 by Serafin Rod MD) Cellulitis of scrotum (Acute) Severe sepsis (Acute) Orchitis and epididymitis (Acute) - Secondary Discharge Diagnosis Chronic Problems (Last Reviewed 12/23/18 @ 07:26 by Serafin Rod MD) Hyperlipidemia (Chronic) HTN (hypertension), benign (Chronic) Persistent atrial fibrillation (Chronic) CAD (coronary artery disease), [place] coronary artery (Chronic) Hospital Course and Treatment Imaging Results: Clinical Impression(s) from Imaging Studies Testicular Ultrasound 12/21/18 09:32 IMPRESSION: Enlargement of the left epididymis with increased vascularity suggestive of epididymitis. Bilateral hydroceles left greater than right. Electronically Signed: Saleem Warren MD at 11:15 EST Tel [phone], Service support , Abdomen/Pelvis CT 12/23/18 09:11 IMPRESSION: Mild degree of bibasilar atelectasis. Small left hydrocele with increased vascularity within the hemiscrotum and skin thickening. Small gallstones. Electronically Signed: Saleem Warren MD at 12:38 EST , Service support , Navjot Rod MD: Urology. Operations: None Procedures: None Summary of Care Provided: The patient is a 58 year old M presents with testicular swelling. Patient presented with severe sepsis attic acid of 2.2 tachycardia and tachypnea upon arrival. This is due to left-sided orchitis. Initially felt to be related with cellulitis but urology felt more related with orchitis.. Patient was started on Rocephin as well as vancomycin and gradually improved. Patient was having some fevers still. Possible etiology of the arthritis could been some prostatitis that migrated. Patient will be on Bactrim DS 1 tablet twice daily for 10days. Patient will follow up with urology for further evaluation. Urine culture did show E. coli that if the Bactrim. Not using fluoroquinolones given the patient's concomitant digoxin use. Today, the patient is feeling much better still has some tenderness and some swelling but much improved from previous. Patient was restarted back on Coumadin. 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 His industrial economics teacher recommended he be on Coumadin as well as his Plavix and the primary provider recommended against concomitant use of Coumadin and Plavix. This is according to the patient. Patient was restarted back on his Coumadin his INR has been subtherapeutic but likely due to with the Bactrim his INR will go up rather quickly and patient will have a follow-up INR is in the coming weeks with the results to his industrial economics teacher. [] Patient Problems: Active and Suspected Problems (Last Reviewed 12/23/18 @ 07:26 by Serafin Rod MD) Severe sepsis (Acute) Orchitis and epididymitis (Acute) Objective: Decreased erythema of the scrotum - Physical Exam General: Alert, No apparent distress HEENT: Atraumatic, Normocephalic Oral: Moist Mucosa, No Gingival or Mucosal Lesions/ Ulcerations Neck: No Nodes, Thyroid Normal Size and Texture Lungs: Clear to auscultation, Normal air movement, No rhonchi, No wheeze Cardiovascular: Regular rate, Regular Rhythm, Normal S1, Normal S2, No murmurs Abdomen: Bowel Sounds Present, Soft, Non Tender, Non-Distended, No Hepato- splenomegaly Extremities: No edema, No Calf Tenderness Vital Signs Temp Pulse Resp BP Pulse Ox 37.2 C 116 H 16 151/84 H 94 12/24/18 04:11 12/24/18 04:11 12/24/18 04:11 12/24/18 04:11 12/24/18 07:30 Oxygen Delivery Method Room Air Weight: 97 kg Body Mass Index (BMI) 34.4 Intake and Output for Last 24 Hours 12/22/18 12/23/18 12/24/18 23:59 23:59 23:59 Intake Total 1835 / 1835 2820 / 2820 2225 / 2225 Output Total 2150 / 2150 2825 / 2825 625 / 625 Balance -315 / -315 -5 / -5 1600 / 1600 Microbiology Past 72 Hours 12/21/18 10:37 Blood Culture - Preliminary Blood Culture (Wb) - Left Hand No growth in 48 hours. 12/21/18 10:18 Blood Culture - Preliminary Blood Culture (Wb) - Anticubital Right No growth in 48 hours. 12/21/18 11:35 Urine Culture - Final Urine, Clean Catch Presumptive E. coli Laboratory Tests Past 24 Hrs 12/23/18 12/24/18 12/24/18 09:30 05:18 05:18 WBC 7.4 RBC 4.69 Hgb 13.8 Hct 40.6 MCV 86.6 MCH 29.4 MCHC 34.0 RDW 13.9 RDW Differential 42.7 Plt Count 190 MPV 9.7 Immature Gran % (Auto) 0.800 Neut % (Auto) 74.5 H Lymph % (Auto) 10.[address] [place] % (Auto) 13.0 H Eos % (Auto) 1.2 Baso % (Auto) 0.1 Absolute Neuts (auto) 5.5 Absolute Lymphs (auto) 0.77 L Total Counted Not Reportable PT 15.1 H 15.5 H INR 1.2 1.2 Sodium Potassium Chloride Carbon Dioxide Anion Gap BUN Creatinine Estim Creat Clear Calc Est GFR (MDRD) Af Amer Est GFR (MDRD) Non-Af BUN/Creatinine Ratio Glucose Calcium 12/24/18 05:18 WBC RBC Hgb Hct MCV MCH MCHC RDW RDW Differential Plt Count MPV Immature Gran % (Auto) Neut % (Auto) Lymph % (Auto) [place] % (Auto) Eos % (Auto) Baso % (Auto) Absolute Neuts (auto) Absolute Lymphs (auto) Total Counted PT INR Sodium 139 Potassium 3.8 Chloride 103 Carbon Dioxide 27.0 Anion Gap 9 BUN 18 Creatinine 0.96 Estim Creat Clear Calc 74.77 Est GFR (MDRD) Af Amer 102 Est GFR (MDRD) Non-Af 85 BUN/Creatinine Ratio 18.7 Glucose 123 H Calcium 8.6 Discharge Diet: Low fat/ Low Cholesterol Discharge Activity: Return to Normal Activity, May not drive while taking narcotic pain medications. Return to work on:: 12/28/18 Call your doctor if your incision/area has: Increased Pain/ Swelling, Increased Redness Call your doctor if you observe: Fever of 101 or Higher Home Medications: Medications to take at Discharge warfarin 5 mg tablet 5 mg PO DAILY #90 tab 11/06/17 clopidogrel 75 mg tablet 75 mg PO DAILY #90 tab 05/19/18 digoxin 250 mcg tablet 250 mcg PO DAILY #90 tab 05/19/18 losartan 100 mg-hydrochlorothiazide 25 mg tablet 1 tab PO QDAY #90 tab 05/19/18 metoprolol succinate ER 100 mg tablet,extended release 24 hr 100 mg PO QDAY #90 tab 05/19/18 Gabapentin [Neurontin] 300 mg PO QHS 12/21/18 Psyllium Husk [Metamucil] 0.4 gm PO DAILY 12/21/18 Acetaminophen [Tylenol] 1,000 mg PO Q8H PRN PRN tablet 12/24/18 Oxycodone [Oxyir] 5 mg PO Q6H PRN 3 Days #12 tablet 12/24/18 Smz/Tmp Ds [Bactrim Ds] 1 tablet PO BID #20 tablet 12/24/18 Following Prescrptions Were Given to Patient: Smz/Tmp Ds [Bactrim Ds] 1 tablet PO BID #20 tablet Oxycodone [Oxyir] 5 mg PO Q6H PRN 3 Days #12 tablet PRN Reason: Severe Pain (6-10/10) Other Amb Orders: Prothrombin Time w/INR Time Frame: 1 Week, Location: Laboratory Prothrombin Time w/INR Time Frame: 2 Weeks, Location: Laboratory Primary Care Physician: Neto Box MD [Primary Care Provider] - Within 2 Weeks Please Follow Up With: Serafin Rod MD - Urology. Call for appointment. When: 2-4 weeks. Disposition: Home Minutes spent on discharge:: 35 Patient Condition:: Good Medical Necessity - Tobacco Use Smoking Status: Never smoker Tobacco Use: Non-smoker Meaningful Use Info Meaningful Use Diagnoses (Choose all that apply): None applicable Code Visit Inpatient E&M: 93359 Disch Hosp
[2018-12-24 10:51] VITALS: BP 133/83; PULSE 112; RESP 16; TEMP 36.8; O2SAT 98
[2018-12-24 10:52] VITALS: PULSE 112
--- NOTE | 2018-12-25 12:40 | CASEMGMT ---
SERA DC PHONE CALL. DC DATE: 12/24/18 DC Disposition: Home Attempted call to phone- no answer. Rubi LAMAS RN ACM
--- OUTSIDE RECORDS SUMMARY | 2019-02-22 19:41 | XMS RPT_ITS ---
:1960 Author Organization [place] Support Name Relationship Address Phone [facility] Unavailable [address] + [place] [address] Joe, Ryan Unavailable Unavailable + [place] [address] Joe [facility] Unavailable [address] + [place] [address] [facility] Unavailable [address] + [place] [address] Joe Ryan Unavailable Unavailable + [place] [address] Joe GLASS [facility] Unavailable [address] + [place] [address] [facility] Unavailable [address] + [place] [address] Joe Ryan Unavailable Unavailable + [place] [address] Joe GLASS [facility] Unavailable [address] + [place] [address] [facility] Unavailable [address] + [place] [address] JOE GLASS MG Unavailable [address] + [place] [address] [facility] Unavailable [address] + [place] [address] JOE GLASS MG Unavailable [address] + [place] [address] [facility] Unavailable [address] + [place] [address] Abe Diazore Unavailable Unavailable + [place] [address] Mg Diaz III Unavailable [address] + [place] [address] [facility] Unavailable . +.. [place], [place] . MG DIAZ III Unavailable [address] + [place] [address] Care Team Providers Name Role Phone Neto Box Primary Care Unavailable Jopperi, Esvin Admitting Unavailable Jopperi, Esvin Attending Unavailable Viola, John Paul Consulting Unavailable Jopperi, Esvin Admitting Unavailable Jopperi, Esvin Attending Unavailable Neto Box Primary Care Unavailable Viola, John Paul Consulting Unavailable Jopperi, Esvin Consulting Unavailable Jopperi, Esvin Admitting Unavailable Jopperi, Esvin Attending Unavailable Neto Box Primary Care Unavailable Viola, John Paul Consulting Unavailable Jopperi, Esvin Consulting Unavailable Jopperi, Esvin Admitting Unavailable Jopperi, Esvin Attending Unavailable Neto Box Primary Care Unavailable Viola, John Paul Consulting Unavailable Jopperi, Esvin Consulting Unavailable Jopperi, Esvin Admitting Unavailable Jopperi, Esvin Attending Unavailable Neto Box Primary Care Unavailable Viola, John Paul Consulting Unavailable Jopperi, Esvin Consulting Unavailable Neto Box Attending Unavailable Neto Box Primary Care Unavailable TRAN CARTER Attending Unavailable Neto Box Primary Care Unavailable TRAN CARTER Referring Unavailable PROBLEMS PROBLEMS DATE TYPE CONDITION / CODE ATTENDING STATUS SOURCE 12/25/2018 Unknown I48.2 - Chronic Neto Box Active [facility] fibrillation / Hospital I48.2(ICD-10) Repository 12/24/2018 Unknown N45.3 - Jopperi, Esvin Active [place] [facility] / N45.3(ICD-10) Hospital Repository PROCEDURES PROCEDURES No Procedure Records FoundRESULTS RESULTS DISCHARGE SUMMARY Observed: 12/24/2018 Status: F Source: DALJIT 9:07 AM [facility] REPOSITORY [facility] Medical Records Department [address] [place] [address] Discharge Summary 12/24/18901 MR#: [id number] Acct: [id number] Name: MG DIAZ II Rep #: [id number] : 1960 58 From: Esvin Rodriguez DO PCP: Neto Box MD Status: ADM IN Y Location: [facility] WI065-3 Discharge Date and Diagnosis - Problem List Patient Problems: Active and Suspected Problems (Last Reviewed 12/23/18 @ 07:26 by Serafin Rod MD) Severe sepsis (Acute) Orchitis and epididymitis (Acute) Date of Admission: 12/21/18 Date of Discharge: 12/24/18 - Primary Discharge Diagnosis Active and Suspected Problems (Last Reviewed 12/23/18 @ 07:26 by Serafin Rod MD) Cellulitis of scrotum (Acute) Severe sepsis (Acute) Orchitis and epididymitis (Acute) - Secondary Discharge Diagnosis Chronic Problems (Last Reviewed 12/23/18 @ 07:26 by Serafin Rod MD) Hyperlipidemia (Chronic) HTN (hypertension), benign (Chronic) Persistent atrial fibrillation (Chronic) CAD (coronary artery disease), northway coronary artery (Chronic) Hospital Course and Treatment Imaging Results: Clinical Impression(s) from Imaging Studies Testicular Ultrasound 12/21/18 09:32 IMPRESSION: Enlargement of the left epididymis with increased vascularity suggestive of epididymitis. Bilateral hydroceles left greater than right. Electronically Signed: Saleem Warren MD at 11:15 EST Tel [phone], Service support , Abdomen/Pelvis CT 12/23/18 09:11 IMPRESSION: Mild degree of bibasilar atelectasis. Small left hydrocele with increased vascularity within the hemiscrotum and skin thickening. Small gallstones. Electronically Signed: Saleem Warren MD at 12:38 EST , Service support , Navjot Rod MD: Urology. Operations: None Procedures: None Summary of Care Provided: The patient is a 58 year old M presents with testicular swelling. Patient presented with severe sepsis attic acid of 2.2 tachycardia and tachypnea upon arrival. This is due to left-sided orchitis. Initially felt to be related with cellulitis but urology felt more related with orchitis.. Patient was started on Rocephin as well as vancomycin and gradually improved. Patient was having some fevers still. Possible etiology of the arthritis could been some prostatitis that migrated. Patient will be on Bactrim DS 1 tablet twice daily for 10days. Patient will follow up with urology for further evaluation. Urine culture did show E. coli that if the Bactrim. Not using fluoroquinolones given the patient's concomitant digoxin use. Today, the patient is feeling much better still has some tenderness and some swelling but much improved from previous. Patient was restarted back on Coumadin. According to the patient, there is some discrepancy between his health technical writer and his primary care provider. His health technical writer recommended he be on Coumadin as well as his Plavix and the primary provider recommended against concomitant use of Coumadin and Plavix. This is according to the patient. Patient was restarted back on his Coumadin his INR has been subtherapeutic but likely due to with the Bactrim his INR will go up rather quickly and patient will have a follow-up INR is in the coming weeks with the results to his health technical writer. [] Patient Problems: Active and Suspected Problems (Last Reviewed 12/23/18 @ 07:26 by Serafin Rod MD) Severe sepsis (Acute) Orchitis and epididymitis (Acute) Objective: Decreased erythema of the scrotum - Physical Exam General: Alert, No apparent distress HEENT: Atraumatic, Normocephalic Oral: Moist Mucosa, No Gingival or Mucosal Lesions/ Ulcerations Neck: No Nodes, Thyroid Normal Size and Texture Lungs: Clear to auscultation, Normal air movement, No rhonchi, No wheeze Cardiovascular: Regular rate, Regular Rhythm, Normal S1, Normal S2, No murmurs Abdomen: Bowel Sounds Present, Soft, Non Tender, Non-Distended, No Hepato-splenomegaly Extremities: No edema, No Calf Tenderness Vital Signs Temp Pulse Resp BP Pulse Ox 37.2 C 116 H 16 151/84 H 94 12/24/18 04:11 12/24/18 04:11 12/24/18 04:11 12/24/18 04:11 12/24/18 07:30 Oxygen Delivery Method Room Air Weight: 97 kg Body Mass Index (BMI) 34.4 Intake and Output for Last 24 Hours Intake Total 1835 / 1835 2820 / 2820 2225 / 2225 Output Total 2150 / 2150 2825 / 2825 625 / 625 Balance -315 / -315 -5 / -5 1600 / 1600 Microbiology Past 72 Hours 12/21/18 10:37 Blood Culture - Preliminary Blood Culture (Wb) - Left Hand No growth in 48 hours. Laboratory Tests Past 24 Hrs WBC 7.4 RBC 4.69 Hgb 13.8 Hct 40.6 MCV 86.6 MCH 29.4 MCHC 34.0 RDW 13.9 WBC RBC Hgb Hct MCV MCH MCHC RDW RDW Differential Plt Count MPV Immature Gran % (Auto) Neut % (Auto) Lymph % (Auto) Discharge Diet: Low fat/ Low Cholesterol Discharge Activity: Return to Normal Activity, May not drive while taking narcotic pain medications. Return to work on:: 12/28/18 Call your doctor if your incision/area has: Increased Pain/ Swelling, Increased Redness Call your doctor if you observe: Fever of 101 or Higher Home Medications: Medications to take at Discharge warfarin 5 mg tablet 5 mg PO DAILY #90 tab 11/06/17 clopidogrel 75 mg tablet 75 mg PO DAILY #90 tab 05/19/18 digoxin 250 mcg tablet 250 mcg PO DAILY #90 tab 05/19/18 losartan 100 mg-hydrochlorothiazide 25 mg tablet 1 tab PO QDAY #90 tab 05/19/18 metoprolol succinate ER 100 mg tablet,extended release 24 hr 100 mg PO QDAY #90 tab 05/19/18 Gabapentin [Neurontin] 300 mg PO QHS 12/21/18 Psyllium Husk [Metamucil] 0.4 gm PO DAILY 12/21/18 Acetaminophen [Tylenol] 1,000 mg PO Q8H PRN PRN tablet 12/24/18 Oxycodone [Oxyir] 5 mg PO Q6H PRN 3 Days #12 tablet 12/24/18 Smz/Tmp Ds [Bactrim Ds] 1 tablet PO BID #20 tablet 12/24/18 Following Prescrptions Were Given to Patient: Smz/Tmp Ds [Bactrim Ds] 1 tablet PO BID #20 tablet Oxycodone [Oxyir] 5 mg PO Q6H PRN 3 Days #12 tablet PRN Reason: Severe Pain (6-10/10) Other Amb Orders: Prothrombin Time w/INR Time Frame: 1 Week, Location: Laboratory Prothrombin Time w/INR Time Frame: 2 Weeks, Location: Laboratory Primary Care Physician: Neto Box MD [Primary Care Provider] - Within 2 Weeks Please Follow Up With: Serafin Rod MD - Urology. Call for appointment. When: 2-4 weeks. Disposition: Home Minutes spent on discharge:: 35 Patient Condition:: Good Medical Necessity - Tobacco Use Smoking Status: Never smoker Tobacco Use: Non-smoker Meaningful Use Info Meaningful Use Diagnoses (Choose all that apply): None applicable Code Visit Inpatient E AND M: 20581 Disch Hosp 12/24/18 0907 <Electronically signed by Esvin Rodriguez DO> Date Esvin Rodriguez DO Cosigner Signature (if applicable): Date CC: Fernando Pratt MD; Neto Box MD; Esvin Rodriguez DO Signed DISCHARGE INSTRUCTION Observed: 12/24/2018 Status: F Source: LAURA 9:01 AM [facility] REPOSITORY [facility] Medical Records Department [address] [place] [address] Instructions for Home/Discharge Instructions 12/24/18 0900 MR#: [id number] Acct: [id number] Name: MG DIAZ Mehul BAEZ Rep #: [id number] : 1960 58 From: Esvin Rodriguez DO PCP: Neto Box MD Status: ADM IN - Discharge Diagnoses Current Active Problems: Current Active and Chronic Problems (Last Reviewed 12/23/18 @ 07:26 by Serafin Rod MD) Cellulitis of scrotum (Acute) Severe sepsis (Acute) Orchitis and epididymitis (Acute) You will use the following diet at home:: Cardiac Your food should be the consistency of: Regular Your liquids should be the consistency of: Regular/Thin Discharge Activity: Return to Normal Activity, May not drive while taking narcotic pain medications. Return to work on:: 12/28/18 Call your doctor if your incision/area has: Increased Pain/ Swelling, Increased Redness Call your doctor if you observe: Fever of 101 or Higher Allergies/Adverse Reactions: Allergies atorvastatin calcium [From Lipitor] Allergy (Verified 12/21/18 09:07) Unknown fenofibrate nanocrystallized [From Tricor] Allergy (Verified 12/21/18 09:07) Unknown fenofibrate,micronized [From Tricor] Allergy (Verified 12/21/18 09:07) Unknown pravastatin sodium [From Pravachol] Allergy (Verified 12/21/18 09:07) Unknown rosuvastatin calcium [From Crestor] Allergy (Verified 12/21/18 09:07) Unknown simvastatin [From Zocor] Allergy (Verified 12/21/18 09:07) Unknown Medications to take at Discharge warfarin 5 mg tablet 5 mg PO DAILY #90 tab 11/06/17 clopidogrel 75 mg tablet 75 mg PO DAILY #90 tab 05/19/18 digoxin 250 mcg tablet 250 mcg PO DAILY #90 tab 05/19/18 losartan 100 mg-hydrochlorothiazide 25 mg tablet 1 tab PO QDAY #90 tab 05/19/18 metoprolol succinate ER 100 mg tablet,extended release 24 hr 100 mg PO QDAY #90 tab 05/19/18 Gabapentin [Neurontin] 300 mg PO QHS 12/21/18 Psyllium Husk [Metamucil] 0.4 gm PO DAILY 12/21/18 Acetaminophen [Tylenol] 1,000 mg PO Q8H PRN PRN tablet 12/24/18 Oxycodone [Oxyir] 5 mg PO Q6H PRN 3 Days #12 tablet 12/24/18 Smz/Tmp Ds [Bactrim Ds] 1 tablet PO BID #20 tablet 12/24/18 The following prescriptions were given: Smz/Tmp Ds [Bactrim Ds] 1 tablet PO BID #20 tablet Oxycodone [Oxyir] 5 mg PO Q6H PRN 3 Days #12 tablet PRN Reason: Severe Pain (6-10/10) Orders to be completed after discharge: Prothrombin Time w/INR Time Frame: 1 Week, Location: Laboratory Prothrombin Time w/INR Time Frame: 2 Weeks, Location: Laboratory Primary Care Physician: Neto Box MD [Primary Care Provider] - Within 2 Weeks Test Results: Test results from this visit will be discussed in further detail at your follow-up appointment, if applicable. Please Follow Up With: Serafin Rod MD - Urology. Call for appointment. When: 2-4 weeks. Proposed Discharge Date: 12/24/18 12/24/18 0901 <Electronically signed by Esvin Rodriguez DO> Date Esvin Rodriguez DO CC: Neto Box MD; Serafin Rod MD Signed PROTHROMBIN TIME W/INR Collected: 12/24/2018 Status: F Source: LAURA 5:18 AM [facility] REPOSITORY TYPE CODE TESTS RESULT OUT OF RANGE REFERENCE UNITS LAB L300.4150 11.7-14.9 SECONDS High PROTIME 15.5 LAB L300.4200 Normal INR 1.2 Performed By: #### L300.3900 #### [facility] [address] [place], [address] CBC W/DIFF, AUTOMATED Collected: 12/24/2018 Status: F Source: LAURA 5:18 AM [facility] REPOSITORY TYPE CODE TESTS RESULT OUT OF RANGE REFERENCE UNITS LAB L100.1000 4.4-11.0 K/mm3 Normal WBC 7.4 LAB L100.1200 4.6-6.2 M/mm3 Normal RBC 4.69 LAB L100.1300 13.0-16.5 g/dl Normal HGB 13.8 LAB L100.1400 40-54 % Normal HCT 40.6 LAB L100.1500 80-94 fL Normal MCV 86.6 LAB L100.1600 27.0-32.0 pg Normal MCH 29.4 LAB L100.1700 32-36 g/gl Normal MCHC 34.0 LAB L100.1810 11.6-14.6 % Normal RDW CV 13.9 LAB L100.1820 35.1-43.9 fl Normal RDW SD 42.7 LAB L100.1900 150-450 K/mm3 Normal PLT 190 LAB L100.2000 6.2-12.0 fl Normal MPV 9.7 LAB L100.2100 47-70 % High NEUT% 74.5 LAB L100.2200 19-41 % Low LY% 10.4 LAB L100.2300 0-10 % High MONO% 13.0 LAB L100.2400 0-5 % Normal EO% 1.2 LAB L100.2500 0-1 % Normal BASO% 0.1 LAB L100.2550 0.0-0.9 % Normal IM GRAN % 0.800 Result Comment: IG% - Immature Granulocytes (promyelocytes, myelocytes and metamyelocytes) > 1% indicates that a LEFT SHIFT is Present. LAB L100.2620 2.0-7.7 X10 3/uL Normal Absolute Neut 5.5 LAB L100.2720 0.83-4.51 X10 3/ul Low Absolute Lymph 0.77 Performed By: #### L100.0100 #### [facility] [address] [place], [place], [address] BASIC METABOLIC Collected: 12/24/2018 Status: F Source: LAURA PROFILE (BMP) 5:18 AM [facility] REPOSITORY TYPE CODE TESTS RESULT OUT OF RANGE REFERENCE UNITS LAB L501.0100 74-106 mg/dL High GLU 123 Result Comment: Fasting Glucose result from 100 to 125 mg/dL suggests IMPAIRED HOMEOSTASIS per A.D.A. criteria. Please note revised GLUCOSE reference range effective 2018. LAB L501.1000 7-18 mg/dL Normal BUN 18 LAB L501.1100 0.70-1.30 mg/dL Normal CREAT,SERUM 0.96 Result Comment: The validity of the calculated GFR AND GFRAA in patients over 70 years has not been determined. Clinical correlation is essential. LAB L501.1110 >60 mL/min Normal EST GFR 85 Result Comment: Non- GFR Calc LAB L501.1115 >60 mL/min Normal EST GFR - AA 102 Result Comment: GFR Calc LAB L501.1255 ml/min Normal Estimated CRCL 74.77 LAB L501.1300 10-20 RATIO Normal BUN/CRE 18.7 LAB L501.2200 8.5-10 mg/dL Normal .1 CA 8.6 LAB L501.5300 136-14 mmol/L Normal 5 NA 139 LAB L501.5600 3.5-5. mmol/L Normal 1 K 3.8 LAB L501.5900 98-107 mmol/L Normal CL 103 LAB L501.6100 21.0-3 mmol/L Normal 2.0 CO2 27.0 LAB L501.6200 5-15 Normal GAP 9 Performed By: #### L500.2500 #### [facility] [address] [place], [address] PROTHROMBIN TIME W/INR Collected: 12/23/2018 Status: F Source: DALJIT 9:30 AM [facility] REPOSITORY TYPE CODE TESTS RESULT OUT OF RANGE REFERENCE UNITS LAB L300.4150 11.7-14.9 SECONDS High PROTIME 15.1 LAB L300.4200 Normal INR 1.2 Performed By: #### L300.3900 #### [facility] [address] [facility] [place], [address] ABDOMEN/PELVIS WITH Observed: 12/23/2018 Status: F Source: DALJIT CONTRAST 9:12 AM [facility] REPOSITORY [facility] Imaging Services [address] [place] [address] Abdomen/Pelvis WITH Contrast MR#: [id number] Acct: [id number] Name: MG DIAZ NESTOR Rep #: [id number] : 1960 M 58 From: Saleem Warren MD PCP: Neto Box MD Status: ADM IN Study: Abdomen/Pelvis WITH Contrast Date of Exam: 12/23/18 Exam# [id number] Ordering Dr: Esvin Rodriguez DO STUDY: CT ABDOMEN AND PELVIS WITH CONTRAST REASON FOR EXAM: Male, 58 years old. Left testicular swelling. RADIATION DOSAGE (If Supplied By Facility): CTDIvol = ( 16.97 ) mGy, DLP = ( 1821.54 ) mGycm TECHNIQUE: Transaxial images were obtained from the dome of the diaphragm to the symphysis pubis with oral contrast. 100 ml of Isovue 300 contrast was administered. Sagittal and coronal images were reconstructed. Individualized dose optimization techniques were used for this CT. COMPARISON: None. FINDINGS: Mild increased markings at the lung bases suggests a mild degree of bibasilar atelectasis. The visualized portions of the heart are within normal limits. Normal liver. There are multiple small gallstones. Normal spleen. Normal pancreas. Normal bilateral adrenal glands. Normal right kidney. Normal left kidney. Normal visualized stomach. Normal small intestine. There are scattered colonic diverticula consistent with diverticulosis. The appendix is visualized and appears normal. There is scattered atherosclerotic calcification of the abdominal aorta, without a demonstrated aneurysm. Normal inferior vena cava. Normal retroperitoneum. Normal urinary bladder. Increased vascularity in the left hemiscrotum. Left scrotal thickening. Small bilateral inguinal hernias containing fat. There are degenerative changes of the visualized lumbar spine. CT/Abdomen/Pelvis WITH Contrast IMPRESSION: Mild degree of bibasilar atelectasis. Small left hydrocele with increased vascularity within the hemiscrotum and skin thickening. Small gallstones. 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 CONSULTATION Observed: 12/23/2018 Status: F Source: LAURA 7:28 AM [facility] REPOSITORY [facility] Medical Records Department [address] [place] [address] Consultation 12/23/18 0725 MR#: [id number] Acct: [id number] Name: MG DIAZ II Rep #: [id number] : 1960 58 From: Serafin Rod MD PCP: Neto Box MD Status: ADM IN Y Location: [facility] KC143-1 Problem List (1) Orchitis and epididymitis Status: Acute Reason for Consult Date of Consultation: 12/23/18 History of Present Illness: The patient is a 58 year old male who suddenly started having severe pain in the left testicle swelling and redness tenderness he went to the emergency room white blood count was elevated at 31,000 and was found to have a severe testicular orchitis and epididymitis. Cultures were done urine is positive with E. coli. He has been on antibiotics in the hospital and been consulted to see the patient regarding his orchitis. Clinically he is getting better his white count is back down to 8 he states his pain is better but still swollen and tender so red no sign of an abscess formation no surgical indication at this point Past Medical History Past Medical History (Chronic Problems): Chronic Problems (Last Reviewed 12/21/18 @ 14:24 by Esvin Rodriguez DO) Hyperlipidemia (Chronic) HTN (hypertension), benign (Chronic) Persistent atrial fibrillation (Chronic) CAD (coronary artery disease), northway coronary artery (Chronic) Medical History: Medical History (Last Reviewed 12/23/18 @ 07:26 by Serafin Rod MD) Hyperlipidemia (Chronic) E78.5 HTN (hypertension), benign (Chronic) I10 Persistent atrial fibrillation (Chronic) I48.1 Cardiomyopathy, ischemic (Resolved) I25.5 CAD (coronary artery disease), northway coronary artery (Chronic) I25.10 Allergies atorvastatin calcium [From Lipitor] Allergy (Verified 12/21/18 09:07) Unknown fenofibrate nanocrystallized [From Tricor] Allergy (Verified 12/21/18 09:07) Unknown fenofibrate,micronized [From Tricor] Allergy (Verified 12/21/18 09:07) Unknown pravastatin sodium [From Pravachol] Allergy (Verified 12/21/18 09:07) Unknown rosuvastatin calcium [From Crestor] Allergy (Verified 12/21/18 09:07) Unknown simvastatin [From Zocor] Allergy (Verified 12/21/18 09:07) Unknown Home Medications: Ambulatory Orders Medication Instructions Recorded warfarin 5 mg tablet 5 mg PO DAILY #90 tab 11/06/17 clopidogrel 75 mg tablet 75 mg PO DAILY #90 tab 05/19/18 Surgical History: Surgical History (Last Reviewed 12/23/18 @ 07:26 by Serafin Rod MD) S/P coronary artery stent placement (Resolved) Z95.5 LAD 2008, LAD 2012 Surgical History: no surgical history Smoking Status: Never smoker Tobacco Use: Non-smoker Alcohol: None Drugs: None - *Family History Paternal History Items: Heart Disease Review of Systems Constitutional: Reports: Chills, Fever. Denies: Weight Change HEENT: Denies: Head Aches, Sinus Congestion, Sinus Drainage Cardiovascular: Denies: Chest Pain, Palpitations Respiratory: Denies: Cough, Shortness of breath at rest, Sputum production Gastrointestinal: Denies: Abdominal Pain, Nausea, Vomiting Genitourinary: Reports: - - Left testicle swollen and tender. Denies: Dysuria Musculoskeletal: Denies: Joint Pain, Joint Tenderness Skin: Denies: Rash, Wounds Neurological: Denies: Numbness, Tingling, Focal weakness Psychiatric: Denies: Anxiety, Depression, Homicidal Ideations, Suicidal Ideations Hematologic/ Lymphatic: Denies: Easy Bruising, Easy Bleeding Physical Exam - Physical Exam Vital Signs Temp 99.5 F H 12/23/18 04:28 Pulse 111 H 12/23/18 03:06 Resp 20 H 12/23/18 03:06 BP 154/75 H 12/23/18 03:06 Pulse Ox 96 12/23/18 03:06 Intake AND Output Intake Total 1830 / 1830 1835 / 1835 1807 / 1807 Output Total 300 / 300 2150 / 2150 975 / 975 Balance 1530 / 1530 -315 / -315 832 / 832 General: Alert, Oriented x3 HEENT: Atraumatic Oral: Moist Mucosa Neck: Supple Lungs: Normal air movement Cardiovascular: Regular rate Abdomen: Soft Rectal: Exam deferred Testicle: Left Enlarged, Left Tender, Left Swollen Epididymis: Left Enlarged, Left Tender Penis: Circumcised Groin: No hernia Skin: No rashes Musculoskeletal: No Tenderness to Palpation of Joints or Extremities Lymphatic: No Cervical, Supraclavicular, or Inguinal Adenopathy Psych/Mental Status: Normal Affect Microbiology Past 72 Hours 12/21/18 11:35 Urine Culture - Preliminary Urine, Clean Catch Presumptive E. coli Laboratory Tests Past 24 Hrs WBC 8.2 RBC 4.34 L Hgb 12.6 L Hct 37.4 L MCV 86.2 MCH 29.0 MCHC 33.7 RDW 13.9 RDW Differential 42.9 Assessment/Plan All Active Problems (Last Reviewed 12/21/18 @ 14:24 by Esvin Rodriguez DO) Cellulitis of scrotum (Acute) Severe sepsis (Acute) Orchitis and epididymitis (Acute) Cardiomyopathy, ischemic (Resolved) S/P coronary artery stent placement (Resolved) 58-year-old male presents to the hospital with left eorchitis swollen testicle on exam he does not have an abscess but he does have a large swollen testicle this is been a take quite some time deferred to resolve but he is improving already, I do not see any surgical indication at this point he continues to improve with IV antibiotics once he is stable he can transition to oral antibiotics and be discharged home with a course of 10 days of oral antibiotics if any questions please give me a call. 12/23/18 0728 <Electronically signed by Serafin Rod MD> Date Serafin Rod MD Cosigner Signature (if applicable): Date CC: Neto Box MD; Serafin Rod MD Signed CBC W/DIFF, AUTOMATED Collected: 12/23/2018 Status: F Source: DALJIT 4:28 AM [facility] REPOSITORY TYPE CODE TESTS RESULT OUT OF RANGE REFERENCE UNITS LAB L100.1000 4.4-11.0 K/mm3 Normal WBC 8.2 LAB L100.1200 4.6-6.2 M/mm3 Low RBC 4.34 LAB L100.1300 13.0-16.5 g/dl Low HGB 12.6 LAB L100.1400 40-54 % Low HCT 37.4 LAB L100.1500 80-94 fL Normal MCV 86.2 LAB L100.1600 27.0-32.0 pg Normal MCH 29.0 LAB L100.1700 32-36 g/gl Normal MCHC 33.7 LAB L100.1810 11.6-14.6 % Normal RDW CV 13.9 LAB L100.1820 35.1-43.9 fl Normal RDW SD 42.9 LAB L100.1900 150-450 K/mm3 Normal PLT 190 LAB L100.2000 6.2-12.0 fl Normal MPV 9.3 LAB L100.2100 47-70 % High NEUT% 83.6 LAB L100.2200 19-41 % Low LY% 4.7 LAB L100.2300 0-10 % High MONO% 10.4 LAB L100.2400 0-5 % Normal EO% 0.4 LAB L100.2500 0-1 % Normal BASO% 0.2 LAB L100.2550 0.0-0.9 % Normal IM GRAN % 0.700 Result Comment: IG% - Immature Granulocytes (promyelocytes, myelocytes and metamyelocytes) > 1% indicates that a LEFT SHIFT is Present. LAB L100.2620 2.0-7.7 X10 3/uL Normal Absolute Neut 6.8 LAB L100.2720 0.83-4.51 X10 3/ul Low Absolute Lymph 0.38 Performed By: #### L100.0100 #### [facility] [address] [place], [place], [address] BASIC METABOLIC Collected: 12/23/2018 Status: F Source: LAURA PROFILE (BMP) 4:28 AM [facility] REPOS[facility] TYPE CODE TESTS RESULT OUT OF RANGE REFERENCE UNITS LAB L501.0100 74-106 mg/dL High GLU 131 Result Comment: Fasting Glucose result greater than or equal to 126 mg/dL suggests DIABETES MELLITUS per A.D.A. criteria. Please note revised GLUCOSE reference range effective 2018. LAB L501.1000 7-18 mg/dL Normal BUN 18 LAB L501.1100 0.70-1.30 mg/dL Normal CREAT,SERUM 0.96 Result Comment: The validity of the calculated GFR AND GFRAA in patients over 70 years has not been determined. Clinical correlation is essential. LAB L501.1110 >60 mL/min Normal EST GFR 86 Result Comment: Non- GFR Calc LAB L501.1115 >60 mL/min Normal EST GFR - AA 103 Result Comment: GFR Calc LAB L501.1255 ml/min Normal Estimated CRCL 74.77 LAB L501.1300 10-20 RATIO Normal BUN/CRE 18.8 LAB L501.2200 8.5-10 mg/dL Low .1 CA 8.1 LAB L501.5300 136-14 mmol/L Normal 5 NA 136 LAB L501.5600 3.5-5. mmol/L Normal 1 K 3.7 LAB L501.5900 98-107 mmol/L Normal CL 100 LAB L501.6100 21.0-3 mmol/L Normal 2.0 CO2 27.0 LAB L501.6200 5-15 Normal GAP 9 Performed By: #### L500.2500 #### [facility] [address] [facility] [place], [address] VANCOMYCIN, TROUGH Collected: 12/23/2018 Status: F Source: DALJIT LEVEL 4:28 AM [facility] REPOSIT[facility] Order Comment: Comments: PLEASE DRAW 30MIN PRIOR TO DOSE ON 12/23 @0500 Time Medication is to be Given? 0500 TYPE CODE TESTS RESULT OUT OF RANGE REFERENCE UNITS LAB L501.8820 5.0-15.0 ug/mL Normal VANCO, TROUGH 5.8 Result Comment: VANCOMYCIN STANDARED DRUG THERAPY TROUGH LEVEL: 5.0 - 15.0 mg/L VANCOMYCIN HIGH INTENSITY THERAPY TROUGH LEVEL: 15.0 - 20.0 mg/L High Intensity therapy recommended for serious life threatening infections include: - Meningitis -Endocarditis -Pneumonia (Ventilator/Healtcare Associated) -Sepsis PLEASE CONTACT PHARMACY SERVICES (#[id number]) FOR INTERPRETATION OF RESULTS. Performed By: #### L501.8820 #### [facility] [address] [facility] [place], [address] CBC W/DIFF, AUTOMATED Collected: 12/22/2018 Status: F Source: DALJIT 4:55 AM [facility]POS[facility] TYPE CODE TESTS RESULT OUT OF RANGE REFERENCE UNITS LAB L100.1000 4.4-11.0 K/mm3 High WBC 16.4 LAB L100.1200 4.6-6.2 M/mm3 Normal RBC 4.63 LAB L100.1300 13.0-16.5 g/dl Normal HGB 13.5 LAB L100.1400 40-54 % Normal HCT 40.6 LAB L100.1500 80-94 fL Normal MCV 87.7 LAB L100.1600 27.0-32.0 pg Normal MCH 29.2 LAB L100.1700 32-36 g/gl Normal MCHC 33.3 LAB L100.1810 11.6-14.6 % Normal RDW CV 14.4 LAB L100.1820 35.1-43.9 fl High RDW SD 45.6 LAB L100.1900 150-450 K/mm3 Normal PLT 198 LAB L100.2000 6.2-12.0 fl Normal MPV 9.3 LAB L100.2100 47-70 % High NEUT% 85.7 LAB L100.2200 19-41 % Low LY% 5.1 LAB L100.2300 0-10 % Normal MONO% 7.8 LAB L100.2400 0-5 % Normal EO% 0.8 LAB L100.2500 0-1 % Normal BASO% 0.1 LAB L100.2550 0.0-0.9 % Normal IM GRAN % 0.500 Result Comment: IG% - Immature Granulocytes (promyelocytes, myelocytes and metamyelocytes) > 1% indicates that a LEFT SHIFT is Present. LAB L100.2620 2.0-7.7 X10 3/uL High Absolute Neut 14.1 LAB L100.2720 0.83-4.51 X10 3/ul Normal Absolute Lymph 0.84 Performed By: #### L100.0100 #### [facility] [address] [facility] [place], [place], [address] PROTHROMBIN TIME W/INR Collected: 12/22/2018 Status: F Source: DALJIT 4:55 AM [facility]POS[facility]ORY TYPE CODE TESTS RESULT OUT OF RANGE REFERENCE UNITS LAB L300.4150 11.7-14.9 SECONDS Normal PROTIME 14.8 LAB L300.4200 Normal INR 1.2 Performed By: #### L300.3900 #### [facility] [address] [facility] [place], [address] BASIC METABOLIC Collected: 12/22/2018 Status: F Source: DALJIT PROFILE (BMP) 4:55 AM [facility]POS[facility]ORY TYPE CODE TESTS RESULT OUT OF RANGE REFERENCE UNITS LAB L501.0100 74-106 mg/dL High GLU 115 Result Comment: Fasting Glucose result from 100 to 125 mg/dL suggests IMPAIRED HOMEOSTASIS per A.D.A. criteria. Please note revised GLUCOSE reference range effective 2018. LAB L501.1000 7-18 mg/dL High BUN 28 LAB L501.1100 0.70-1.30 mg/dL Normal CREAT,SERUM 1.23 Result Comment: The validity of the calculated GFR AND GFRAA in patients over 70 years has not been determined. Clinical correlation is essential. LAB L501.1110 >60 mL/min Normal EST GFR 64 Result Comment: Non- GFR Calc LAB L501.1115 >60 mL/min Normal EST GFR - AA 77 Result Comment: GFR Calc LAB L501.1255 ml/min Normal Estimated CRCL 58.35 LAB L501.1300 10-20 RATIO High BUN/CRE 22.8 LAB L501.2200 8.5-10 mg/dL Normal .1 CA 8.5 LAB L501.5300 136-14 mmol/L Normal 5 NA 137 LAB L501.5600 3.5-5. mmol/L Normal 1 K 3.5 LAB L501.5900 98-107 mmol/L Normal CL 99 LAB L501.6100 21.0-3 mmol/L Normal 2.0 CO2 32.0 LAB L501.6200 5-15 Normal GAP 6 Performed By: #### L500.2500 #### [facility] [address] [place], [address] LACTIC ACID Collected: 12/21/2018 Status: F Source: LAURA 2:48 PM [facility]POS[facility] TYPE CODE TESTS RESULT OUT OF RANGE REFERENCE UNITS LAB L503.6005 0.4-2.0 mmol/L Normal LACTIC ACID 1.6 Performed By: #### L503.6005 #### [facility] [address] [place], [address] HISTORY AND PHYSICAL Observed: 12/21/2018 Status: F Source: LAURA EXAM 2:31 PM [facility] REPOSITORY [facility] Medical Records Department [address] [place] [address] History and Physical 12/21/18 1421 MR#: [id number] Acct: [id number] Name: MG DIAZ NESTOR Rep #: [id number] : 1960 58 From: Esvin Rodriguez DO PCP: Neto Box MD Status: ADM IN Y Location: [place] [id number] Problem List (1) Cellulitis of scrotum Status: Acute (2) Severe sepsis Status: Acute History of Present Illness Date of Admission: 12/21/18 Chief Complaint: testilcular swelling The patient is a 58 year old M the 18th, where patient had some pain in his left groin. Instructed off but was not feeling well overall and not eating much. Today, the pain was much more intense and was noted to have prominent erythema and tenderness over his scrotum put her on the left side. Patient denies any obvious trauma to his leg is never had any history of cellulitis much less scrotal cellulitis previously. Patient presented to the emergency room for evaluation he was diagnosed with acute left orchitis and I received 1 g of Rocephin. Has been chilled and has had diaphoresis but denies any fever. [] Past Medical History Past Medical History (Chronic Problems): Chronic Problems (Last Updated 11/18/17 @ 09:15 by DORENE Dao) Hyperlipidemia (Chronic) HTN (hypertension), benign (Chronic) Persistent atrial fibrillation (Chronic) CAD (coronary artery disease), [place] coronary artery (Chronic) Medical History: Medical History (Last Reviewed 12/21/18 @ 14:24 by Esvin Rodriguez DO) Hyperlipidemia (Chronic) E78.5 HTN (hypertension), benign (Chronic) I10 Persistent atrial fibrillation (Chronic) I48.1 Cardiomyopathy, ischemic (Resolved) I25.5 CAD (coronary artery disease), [place] coronary artery (Chronic) I25.10 Allergies atorvastatin calcium [From Lipitor] Allergy (Verified 12/21/18 09:07) Unknown fenofibrate nanocrystallized [From Tricor] Allergy (Verified 12/21/18 09:07) Unknown fenofibrate,micronized [From Tricor] Allergy (Verified 12/21/18 09:07) Unknown pravastatin sodium [From Pravachol] Allergy (Verified 12/21/18 09:07) Unknown rosuvastatin calcium [From Crestor] Allergy (Verified 12/21/18 09:07) Unknown simvastatin [From Zocor] Allergy (Verified 12/21/18 09:07) Unknown Home Medications: Ambulatory Orders Medication Instructions Recorded warfarin 5 mg tablet 5 mg PO DAILY #90 tab 11/06/17 Surgical History: Surgical History (Last Reviewed 12/21/18 @ 14:24 by JACKIE Johnson S/P coronary artery stent placement (Resolved) Z95.5 LAD 2008, LAD 2012 Smoking Status: Never smoker Tobacco Use: Non-smoker Alcohol: None Drugs: None - *Family History Paternal History Items: Heart Disease Review of Systems Constitutional: Reports: Anorexia, Chills, Malaise. Denies: Fever, Night Sweats Eyes: Denies: Blurred vision, Double vision HEENT: Denies: Head Aches, Sinus Congestion, Sinus Drainage Cardiovascular: Denies: Chest Pain, Palpitations Respiratory: Denies: Cough, Shortness of breath at rest, Sputum production Gastrointestinal: Reports: Abdominal Pain. Denies: Nausea, Vomiting Genitourinary: Reports: Dysuria. Denies: Frequency Musculoskeletal: Denies: Joint Pain, Joint Tenderness Skin: Denies: Dryness, Jaundice Neurological: Denies: Numbness, Tingling, Focal weakness Psychiatric: Denies: Anxiety, Depression Endocrine: Denies: Change in Body Habitus, Heat/ Cold Intolerance Hematologic/ Lymphatic: Reports: Easy Bleeding. Denies: Easy Bruising, Hx of blood clot Comment: A 10 point review of systems were negative except as mentioned in the history of present illness and the other review of systems. VTE Information - Inpt Only VTE Present on Admission: No VTE Pharm Prophylaxis ordered?: Yes Patient Problems: Active and Suspected Problems (Last Updated 11/18/17 @ 09:15 by DORENE Dao) Cellulitis of scrotum (Acute) Severe sepsis (Acute) Objective: Scrotum with erythema circumferentially. Tender to palpation on the distal aspect of the scrotum. No obvious lesions or wounds noted. - Physical Exam General: Alert, Cooperative, No apparent distress HEENT: Atraumatic, Normocephalic, - - No scleral icterus. Oral: Moist Mucosa, No Gingival or Mucosal Lesions/ Ulcerations Neck: No Nodes, Thyroid Normal Size and Texture Lungs: Clear to auscultation, Normal air movement, No rhonchi, No wheeze Cardiovascular: Regular rate, Regular Rhythm, Normal S1, Normal S2, No murmurs Abdomen: Bowel Sounds Present, Soft, Non Tender, Non-Distended, No Hepato-splenomegaly Extremities: No edema, No Calf Tenderness Skin: - - excoriations over the distal legs Musculoskeletal: No Tenderness to Palpation of Joints or Extremities, No Muscle Wasting Neurological: Neuro grossly intact, Muscle tone normal, Coordination normal Psych/Mental Status: Normal Affect, Appropriate Vital Signs Temp Pulse Resp BP Pulse Ox 37.4 C H 120 H 20 H 98/68 92 12/21/18 13:02 12/21/18 13:08 12/21/18 13:02 12/21/18 13:02 12/21/18 13:02 Oxygen Delivery Method Room Air Weight: 97 kg Body Mass Index (BMI) 34.4 Laboratory Tests Past 24 Hrs WBC 30.2 H* RBC 5.24 Hgb 15.6 Hct 46.1 Clinical Impression(s) from Imaging Studies Testicular Ultrasound 12/21/18 09:32 IMPRESSION: Enlargement of the left epididymis with increased vascularity suggestive of epididymitis. Bilateral hydroceles left greater than right. Electronically Signed: Saleem Warren MD at 11:15 EST Tel [phone], Service support , Assessment/Plan All Active Problems (Last Updated 11/18/17 @ 09:15 by DORENE Dao) Cellulitis of scrotum (Acute) Severe sepsis (Acute) Cardiomyopathy, ischemic (Resolved) S/P coronary artery stent placement (Resolved) 1. Severe sepsis Present on admission Secondary to scrotal cellulitis IV fluids Recheck lactic acid 2. Scrotal cellulitis I doubt orchitis as patient testicles normal size on ultrasound Will treat empirically for possible orchitis with ceftriaxone 2 g IV daily Will also start patient on IV vancomycin Keep scrotum elevated No clinical suspicion for gangrene at this time Urology on consult 3. Chronic atrial fibrillation Patient had stopped Coumadin due to a disagreement to his primary provider and cardiology because cardiology wanted him on Plavix and Coumadin but his primary provider did not because of his bleeding tendencies. Discussed with patient about bleeding risk but also the risk of stroke without being on Coumadin. He would prefer to be back on Coumadin and understands the risks of bleeding Will resume Coumadin Continue with digoxin and metoprolol succinate 4. CAD Stable Continue with Plavix, metoprolol 5. DVT prophylaxis with Lovenox until INR is therapeutic Code Visit Inpatient E AND M: [id number] Init Hosp L3 12/21/18 1431 <Electronically signed by Esvin Rodriguez DO> Date Esvin Rodriguez DO Cosigner Signature: Date (if applicable) CC: Fernando Pratt MD; Neto Box MD; Esvin Rodriguez DO Signed URINALYSIS, COMPLETE Collected: 12/21/2018 Status: F Source: DALJIT 11:35 AM [facility] REPOS[facility]ORY Order Comment: How was Urine Obtained? CLEAN CATCH TYPE CODE TESTS RESULT OUT OF RANGE REFERENCE UNITS LAB L400.3000 Yellow COLOR Normal Yellow LAB L400.3050 Clear Normal CLARITY Cloudy LAB L400.3200 Normal mg/dl Normal GLUCOSE, UR Normal LAB L400.3300 Negative mg/dL High BILIRUBIN URINE 3 Result Comment: COLOR OF URINE MAY AFFECT DIPSTICK RESULTS. LAB L400.3400 Negative mg/dl High KETONE UR 5 LAB L400.3465 1.002-1.030 Normal SP.GR. DIPSTX 1.025 LAB L400.3550 5.0 - 8.0 pH Normal UR 5.0 LAB L400.3600 Negative mg/dl High PROT DIPSTX 100 LAB L400.3700 Normal mg/dl High UROBILI 4 LAB L400.3750 Negative High NITRITE UR Positive LAB L400.3780 Negative /ul High OCCULT 25 BLOOD-UR LAB L400.3800 Negative /ul High LEUK ESTERASE 500 LAB L400.4050 0-5 /hpf Normal WBC 25-50 SEEN LAB L400.4100 0-5 /hpf Normal RBC-UA 0-5 SEEN LAB L400.4150 0-5 /hpf Normal SQUAM EPI 0-5 SEEN LAB L400.4300 None Seen /hpf Normal BACTERIA 2+ LAB L400.4350 <or=2+ /hpf Normal MUCUS, URINE 1+ Performed By: #### L400.0001 #### [facility] [address] [place], [address] CT/NG [facility] BY PCR Collected: 12/21/2018 Status: F Source: LAURA 11:35 AM [facility]ORY Order Comment: Has pt arrived? Y TYPE CODE TESTS RESULT OUT OF RANGE REFERENCE UNITS LAB L8200.2100 Negative Normal Chlam Negative Trac PCR LAB L8200.2200 Negative Normal NG by Negative PCR Performed By: #### L8200.2000 #### [facility] [address] [place], [address] Observed: 12/21/2018 Status: F Source: LAURA CULTURE, URINE 11:35 AM [facility] RE[facility]ITORY Comments: use urine already sent Has pt arrived? Y Urine Culture ZONE OF CLEARING DEMONSTRATED ORGANISM 1: Presumptive E. coli [place] Count 50,000-80,000 Presumptive E. coli: REACTION Ampicillin $ <=2 S Ampicillin/Sulbactam $ <=2 S Cefazolin $ <=4 S Cefepime $ <=0.12 S Ceftazidime *NF <=1 S Ceftriaxone $ <=0.25 S Ciprofloxacin $ <=0.25 S Ertapenim $$$ <=0.12 S ESBL NEG Gentamicin $ <=1 S Imipenem *NF <=0.25 S Levofloxacin $ <=0.12 S Nitrofurantoin $ <=16 S Piperacillin/Tazobactam $$ <=4 S Tobramycin $ <=1 S Trimethoprim/Sulfametho $ <=20 S (NF) indicates non-formulary drug at [facility]. Approval by Infectious Disease Specialist required before non-formulary drugs may be ordered and/or dispensed. Performed By: #### M100.0650 #### [facility] [address] [place], [address] EMERGENCY DEPARTMENT Observed: 12/21/2018 Status: F Source: LAURA SUMMARY 11:04 AM [facility] RE[facility]ITORY [facility] Medical Records Department [address] [place] [address] Emergency Department Summary 12/21/18 0941 MR#: [id number] Acct: [id number] Name: MG DIAZ NESTOR Rep #: [id number] : 1960 58 From: Xavi Yi MD PCP: Neto Box MD Status: REG ER - ER Visit Summary Date of Service: 12/21/18 Chief Complaint: Pain left testicle and swelling History of Present Illness: The patient is a 58 M who presents with pain left testicle that started Noe. Pain in increased over the past 2 days. He now presents because of significant swelling. He denies fever, chills or night sweats. He denies dysuria, frequency, urgency or hematuria. He denies urethral discharge. He denies history of hernia. He is on Coumadin. He denies history of trauma. He denies fever, chills or night sweats. He denies weight gain or weight loss. He denies ocular, visual or auditory symptoms. He denies cardiac respiratory symptoms. He reports nausea with significant pain. He denies vomiting, diarrhea, hematemesis, or melena. Physical Examination: Vital signs noted. Blood pressure is 109/55, heart rate 118, respiratory rate 23. Patient appears uncomfortable. HEENT exam is unremarkable. Heart is regular. Lungs are clear to auscultation. Abdomen is soft nontender. He is circumcised. There is no penile lesion or discharge noted. The scrotum is swollen. The right testicle is normal. The left testicle is 4-5 times larger than the right. It is not mobile. It is tender. There is no obvious palpable hernia. There is no inguinal lymphadenopathy noted. Neuro exam is nonfocal. Test Results: White count is 30.2 thousand with 90 segs no bands 4 lymphs. Electrolyte panel is marked for sodium of 132 and chloride 92. Blood sugar is elevated 185. BUN is 22 with a creatinine 1.56. Lactate is 2.2. Ultrasound per tech reveals a small hydrocele on the right. There is a loculated hydrocele on the left that is 4.3 cm in size. The epididymis is enlarged as well at 1.8 cm. Flow was noted bilaterally. Emergency Department Course and Treatment: Since patient is on Coumadin will obtain PT/INR. Ultrasound of the testicle was obtained to evaluate for hematoma, hydrocele, mass, doubt torsion. Blood work was obtained as well. A UA was obtained even though he denies urinary symptoms. Patient denies any new sexual contacts and prior history of STD. Urine for GC and chlamydia was ordered. Once I was made aware of the white count lactate and blood cultures were added as well as 1 g of Rocephin. Urology was paged. Dr. Rod did call back. He agrees with antibiotic choice and admission to hospitalist for treatment of acute orchitis. Since his lactate is elevated and he has multiple seizures criteria he will be admitted for severe sepsis. Treatment Plan: IV antibiotics and treatment for severe sepsis Disposition: PCU full admission Impression: 1. Severe sepsis 2. Acute left orchitis 3. Hydrocele right testicle 4. Renal insufficiency 5. Hyperglycemia in a nondiabetic 6. Hyponatremia This note was generated with [employer] dictation software. It may contain incorrect words, spelling, and punctuation that were not noted in review of the chart prior to signing ED Disposition - Plan for ED Patient: Chief Complaint: Edema Referrals: Neto Box MD [Primary Care Provider] - What to do if you have Problems For any increased pain, shortness of breath, bleeding, nausea or vomiting, chest pain, or any unexpected problems, contact your Primary Care Provider. Call [facility] ([phone]) or report to the closest Emergency Room. Call 911 if necessary. 12/21/18 1104 <Electronically signed by Xavi Yi MD> Date Xavi Yi MD Cosigner Signature (If Indicated): Date CC: Neto Box MD; Serafin Rod MD Observed: 12/21/2018 Status: F Source: DALJ[place] CULTURE, BLOOD (WB) 10:37 AM [facility] RE[facility]ITORY BC No growth in 5 days. Performed By: #### M200.1000 #### [place] [address] [place], [address] LACTIC ACID Collected: 12/21/2018 Status: F Source: DALJIT 10:18 AM [facility]IT[facility] Order Comment: Yes/No query for Sepsis Lactate Rule Y TYPE CODE TESTS RESULT OUT OF REFERENCE UNITS RANGE LAB L503.6005 0.4-2.0 mmol/L High LACTIC ACID 2.2 Result Comment: Critical Result(s) Called at: 10:56:40 12/21/2018 by: Marilee Villar to Joseph Performed By: #### L503.6005 #### [facility] [address] [place], [address] Observed: 12/21/2018 Status: F Source: DALJIT CULTURE, BLOOD (WB) 10:18 AM [facility] BC No growth in 5 days. Performed By: #### M200.1000 #### [facility] [address] [place], [id number] CBC W/DIFF, AUTOMATED Collected: 12/21/2018 Status: C Source: DALJIT 9:40 AM [facility] TYPE CODE TESTS RESULT OUT OF RANGE REFERENCE UNITS LAB L100.1000 4.4-11.0 K/mm3 High alert WBC 30.2 Result Comment: CRITICAL VALUE VERIFIED. CALLED TO SERA VAUGHN 12/21/18 0958 Jessica Manzano. RESULTS READ BACK BY SAME . LAB L100.1200 4.6-6.2 M/mm3 Normal RBC 5.24 LAB L100.1300 13.0-16.5 g/dl Normal HGB 15.6 LAB L100.1400 40-54 % Normal HCT 46.1 LAB L100.1500 80-94 fL Normal MCV 88.0 LAB L100.1600 27.0-32.0 pg Normal MCH 29.8 LAB L100.1700 32-36 g/gl Normal MCHC 33.8 LAB L100.1810 11.6-14.6 % Normal RDW 14.3 CV LAB L100.1820 35.1-43.9 fl High RDW 45.3 SD LAB L100.1900 150-450 K/mm3 Normal PLT 218 LAB L100.2000 6.2-12.0 fl Normal MPV 9.9 LAB L100.2100 47-70 % High NEUT% 90.3 LAB L100.2200 19-41 % Low LY% 3.9 LAB L100.2300 0-10 % Normal MONO% 4.6 LAB L100.2400 0-5 % Normal EO% 0.1 LAB L100.2500 0-1 % Normal BASO% 0.1 LAB L100.2550 0.0-0.9 % High IM 1.000 GRAN % Result Comment: IG% - Immature Granulocytes (promyelocytes, myelocytes and metamyelocytes) > 1% indicates that a LEFT SHIFT is Present. LAB L100.2620 2.0-7.7 X10 3/uL High Absolute Neut 27.3 LAB L100.2720 0.83-4.51 X10 3/ul Normal Absolute Lymph 1.18 LAB L100.4500 Normal SMEAR COMMENT SCANNED Result Comment: ELEVATED LEUKOCYTES NOTED LAB L100.5300 Normal 1+ VACUOL LAB L100.9900 Normal Reviewed PATH REV Result Comment: Neutrophilic leukocytosis. Clinical correlation necessary. Delfino Lizarraga D.O. 12/22/18 AMENDED REPORT 12/22/18 1037 PATH REV previously reported as: Ade michael Performed By: #### L100.0100 #### [facility] [address] [place], [address] BASIC METABOLIC Collected: 12/21/2018 Status: F Source: LAURA PROFILE (BMP) 9:40 AM [facility] TYPE CODE TESTS RESULT OUT OF RANGE REFERENCE UNITS LAB L501.0100 74-106 mg/dL High GLU 185 Result Comment: Fasting Glucose result greater than or equal to 126 mg/dL suggests DIABETES MELLITUS per A.D.A. criteria. Please note revised GLUCOSE reference range effective 2018. LAB L501.1000 7-18 mg/dL High BUN 22 LAB L501.1100 0.70-1.30 mg/dL High CREAT,SERUM 1.56 Result Comment: The validity of the calculated GFR AND GFRAA in patients over 70 years has not been determined. Clinical correlation is essential. LAB L501.1110 >60 mL/min Low EST GFR 49 Result Comment: Non- GFR Calc LAB L501.1115 >60 mL/min Low EST GFR - AA 59 Result Comment: GFR Calc LAB L501.1255 ml/min Normal Estimated CRCL 46.01 LAB L501.1300 10-20 RATIO Normal BUN/CRE 14.1 LAB L501.2200 8.5-10 mg/dL Normal .1 CA 9.1 LAB L501.5300 136-14 mmol/L Low 5 NA 132 LAB L501.5600 3.5-5. mmol/L Normal 1 K 3.8 LAB L501.5900 98-107 mmol/L Low CL 92 LAB L501.6100 21.0-3 mmol/L Normal 2.0 CO2 29.0 LAB L501.6200 5-15 Normal GAP 11 Performed By: #### L500.2500 #### [facility] [address] [facility] [place], [address] PROTHROMBIN TIME W/INR Collected: 12/21/2018 Status: F Source: LAURA 9:40 AM [facility] REPOSITORY TYPE CODE TESTS RESULT OUT OF RANGE REFERENCE UNITS LAB L300.4150 11.7-14.9 SECONDS High PROTIME 15.5 LAB L300.4208 Normal INR 1.2 Performed By: #### L300.3900 #### [facility] [address] [facility] [place], [address] TESTICULAR WITH Observed: 12/21/2018 Status: F Source: LAURA ARTERIAL FLOW 9:33 AM [facility] RE[facility]ITORY [facility] Imaging Services [address] [place] [address] Testicular with Arterial Flow MR#: [id number] Acct: [id number] Name: MG DIAZ II Rep #: [id number] : 1960 M 58 From: Saleem Warren MD PCP: Neto Box MD Status: REG ER Study: Testicular with Arterial Flow Date of Exam: 12/21/18 Exam# [id number] Ordering Dr: Xavi Yi MD STUDY: SCROTUM ULTRASOUND REASON FOR EXAM: Male, 58 years old. Left testicular pain and swelling. TECHNIQUE: Ultrasound evaluation of the scrotum was performed with color Doppler and static briggs-scale imaging. COMPARISON: None. FINDINGS: RIGHT TESTICLE INTRATESTICULAR: There is a normal size of the right testicle. The right testicle measures 5.0 cm x 3.0 cm x 2.2 cm. There is a homogenous echotexture. There is normal arterial and normal venous vascularity. There is no demonstrated right testicular mass or cyst. EXTRATESTICULAR: The epididymis is normal in size. The epididymis head measures 1.3 cm x 1.5 cm x 0.6 cm. There is normal vascularity of the epididymis. 2 epididymal cysts are seen. The larger measures 6 mm x 7 mm x 4 mm. There is a small hydrocele. There is no demonstrated varicocele. There is no demonstrated extratesticular mass or cyst. LEFT TESTICLE INTRATESTICULAR: There is a normal size of the left testicle. The left testicle measures 5.1 cm x 3.4 cm x 3.0 cm. There is a homogenous echotexture. There is normal arterial and normal venous vascularity. There is no demonstrated left testicular mass or cyst. EXTRATESTICULAR: The epididymis is enlarged. The epididymis head measures 1.8 cm x 1.7 cm x 0.8 cm. There is increased (hyperemic) vascularity of the epididymis. There is no demonstrated epididymal cystic structure. There is a moderate size hydrocele. There is no demonstrated varicocele. There is no demonstrated extratesticular mass or cyst. Scrotal skin thickening on the left. US/Testicular with Arterial Flow IMPRESSION: Enlargement of the left epididymis with increased vascularity suggestive of epididymitis. Bilateral hydroceles left greater than right. 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 PROTIME W/INR Collected: 04/13/2018 Status: F Source: DALJIT FINGERSTICK 11:53 AM [facility] REPOSITORY TYPE CODE TESTS RESULT OUT OF REFERENCE UNITS RANGE LAB L9200.1001 11.9-14.4 SEC High PROTIME ISTAT 34.0 Result Comment: Reference Range 11.9 - 14.4 LAB L9200.2000 Normal INR ISTAT 3.00 Result Comment: Critical Value > 3.5 Performed By: #### L9200.0000 #### [facility] Point [place] [id number] ALLERGIES ALLERGIES DATE TYPE / CODE NAME / CODE REACTION SEVERITY SOURCE 12/21/2018 Drug pravastatin Unknown Unknown [place] Allergy/416 sodium/[id number](R [facility] [id number][facility] ED CT) Repository 12/21/2018 Drug atorvastatin Unknown Unknown [place] Allergy/416 calcium/[id number]( [facility] [id number][facility] Repository 12/21/2018 Drug fenofibrate,microni Unknown Unknown [place] Allergy/416 zed/[id number](RXNO [facility] 669234([facility] ED CT) Repository 12/21/2018 Drug rosuvastatin Unknown Unknown [place] Allergy/416 calcium/[id number]( [facility] 513582[facility] Repository 12/21/2018 Drug fenofibrate Unknown Unknown [place] Allergy/416 nanocrystallized/F0 [facility] 826760([facility] [id number][facility] Repository 12/21/2018 Drug simvastatin/[id number] Unknown Unknown [place] Allergy/416 621(RXNORM) [facility] 778704([facility] ED CT) Repository ENCOUNTERS ENCOUNTERS ADMIT/DISCHARGE ACCOUNT ADMITTING ENCOUNTER LOCATION SOURCE NUMBER CLASS 12/25/2018 [id number] Ambulatory [place] 8 [facility] ing:LAB.FUTUR Repository E 12/21/2018/ [id number] Esvin Rodriguez Inpatient Daljit Daljit 9 1 Encounter [facility] ing:LB6Fubn: Repository SV236Pka: 1 12/21/2018 [id number] Esvin Rodriguez Ambulatory BMSBuilding:B [place] 5 [facility] Repository 12/21/2018 [id number] Esvin Rodriguez Ambulatory BMSBuilding:B Daljit 1 MS.[facility] Repository 12/21/2018 [id number] Esvin Rodriguez Ambulatory BMSBuilding:B [place] 7 [facility] Repository 12/21/2018 [id number] Esvin Rodriguez Ambulatory BMSBuilding:B Daljit 9 MS.[facility] Repository 04/13/2018 [id number] Ambulatory Daljit [place] 8 [facility] ing:LAB.NICOLAS Repository E PAYERS PAYERS ENCOUNTER GUARANTOR PAYER SUBSCRIBER SOURCE 12/25/2018 MG Carver Primary MG Bocanegra JOE [id number] Insurance:MEDICAL JOE IIDOB: [facility] [id number] Number: Repository 165[address]Yqt: 419 [id number] [phone] () Date:3649-56-95PG [address] [place] [id number]: 12/25/2018 Secondary MG Bocanegra Insurance:TORREY DIAZ IIDOB: [place] [id number] [address] Number: Repository [id number] Date:2018-12-25C[facility] [employer] [facility] IN[employer] [address] [place] [phone]: 12/25/2018 Tertiary NOT GIVENUNK Daljit Insurance:SELF PAY [facility] Number: Effective Repository Date:2018-12-25 12/21/2018 MG R Primary MG Bocanegra JOE [id number] Insurance:MEDICAL JOE IIDOB: [facility] [id number] Number: Repository [id number]: [phone] [id number] [phone] () Date:2852-05-75DJ [address] [place] [phone]: 12/21/2018 Secondary MG R [place] Insurance:AMIAZARTEMIO DIAZ IIDOB: [place] [id number] Number: Repository [id number] Date:2018-12-21[facility] [employer] [facility] [employer] [address] [place] [phone]: 12/21/2018 Tertiary NOT GIVENUNK [place] Insurance:[facility]LF [facility] Number: Effective Repository Date:2018-12-21 12/21/2018 MG R Primary MG R Daljit JOE [id number] Insurance:MEDICAL JOE IIDOB: [facility] [id number] Number: Repository [id number]: [phone] [id number] [phone] () Date:7102-97-72WX [address] [place] [phone]: 12/21/2018 Secondary MG R [place] Insurance:BEAZLEY JOE IIDOB: [place] [id number] Number[facility] Repository [id number] Date:2018-12-21C[facility] [employer] [address] [place] [phone]: 12/21/2018 Tertiary NOT GIVENUNK [place] Insurance:SELF PAY [facility] Number: Effective Repository Date:2018-12-21 12/21/2018 MG R Primary MG Bocanegra JOE [id number] Insurance:MEDICAL JOE IIDOB: [facility] [id number] Number: Repository [id number]: [phone] [id number] [phone] () Date:[id number] [address]PR: 12/21/2018 Secondary MG R [place] Insurance:BEAZLEY JOE IIDOB: [place] [id number] [facility]amos Medical CenterPolicy Number: Repository [id number] Date:2018-12-21C[facility] [employer] [address] [place] [phone]: 12/21/2018 Tertiary NOT GIVENUNK [place] Insurance:SELF PAY [facility] Number: Effective Repository Date:2018-12-21 12/21/2018 MG R Primary MG R Daljit JOE [id number] Insurance:MEDICAL JOE IIDOB: Community SPR[facility]CE [facility] [id number] Number: Repository [id number]: [phone] [id number] [phone] () Date:5686-00-59TV [address] [place] [phone]: 12/21/2018 Secondary MG R [place] Insurance:BEAZLEY JOE IIDOB: [place] [id number] Number: Repository [id number] Date:2018-12-21C[facility] [employer] [facility] [employer] [address] [place] [phone]: 12/21/2018 Tertiary NOT GIVENUNK Daljit Insurance:SELF PAY [facility] Number: Effective Repository Date:2018-12-21 12/21/2018 MG R Primary MG R Daljit JOE [id number] Insurance:MEDICAL JOE [facility] [id number] Number: Repository [id number]: [phone] [id number] [phone] () Date:6244-83-20LN [address] [place] [phone]: 12/21/2018 Secondary MG R [place] Insurance:BEAZLEY JOE IIDOB: [place] [id number] Medical Centericy Number: Repository [id number] Date:2018-12-21C[facility] [employer] [facility] [employer] [address] [place] [phone]: 12/21/2018 Tertiary NOT GIVENUNK Daljit Insurance:SELF PAY [facility] Number: Effective Repository Date:2018-12-21 04/13/2018 MG R Primary MG R Daljit JOE [id number] Insurance:ANTHEMPolic JOE IIDOB: [facility] Number: [id number] [id number] Repository [address]Hka: [phone]) Date:9751-59-63YS [phone] () 114[address]LTXWSLO, [place] [address]OT: 04/13/2018 Secondary MG Bocanegra Insurance:TORREY DIAZ IIDOB: [place] [id number] Number: Repository [id number] Date:2018-03-26C[facility] [address], [place] [address]IJ: 04/13/2018 Tertiary NOT GIVENMALIKA Bocanegra Insurance:SELF PAY [facility] Number: Effective Repository Date:2018-03-26
== END 2018-12-24 11:17 | disposition home or self-care (01) | DRG 872 ==
LOC: ED 09:40 → PCU 11:54 → MS2 12-22 13:17
PROVIDERS: Emergency Provider Emergency Medicine
DX: A41.9 Sepsis, unspecified organism (principal); E87.1 Hypo-osmolality and hyponatremia; I48.1 Persistent atrial fibrillation; R65.20 Severe sepsis without septic shock; N49.2 Inflammatory disorders of scrotum; N45.3 Epididymo-orchitis; E78.5 Hyperlipidemia, unspecified; N43.3 Hydrocele, unspecified; I10 Essential (primary) hypertension; I25.10 Atherosclerotic heart disease of native coronary artery without angina pectoris; Z95.5 Presence of coronary angioplasty implant and graft; B96.20 Unspecified Escherichia coli [E. coli] as the cause of diseases classified elsewhere
CPT/HCPCS: 36415; 74177; 76870; 80048; 80202; 81001; 83605; 85025; 85610; 87040; 87086; 87088; 87186; 87491; 87591; 93976; 94762; 99284; J7030; J7040; J7050; Q9967; A4216; J0696; J2405

== ENCOUNTER → 2019-02-09 16:25 | Outpatient (CLI) | payer OTHER, SELFPAY ==
[2018-12-21 13:00] VITALS: BMI 34.4
[2019-02-09 17:51] LABS: PSA,Total - Annual Screen 5.09 ng/mL (0.00-4.00)
== END ==
PROVIDERS: Referring Provider Urology; Visit Provider Urology
DX: Z12.5 Encounter for screening for malignant neoplasm of prostate (principal)
CPT/HCPCS: 36415; 84153; G0103

== ENCOUNTER → 2019-09-03 08:23 | Outpatient (CLI) | payer OTHER, SELFPAY ==
[2019-06-18 11:58] VITALS: BMI 34.5
[2019-09-03 10:50] LABS: Erythrocyte Sedimentation Rate 8 mm/hr (0-20)
[2019-09-03 10:51] LABS: Red Blood Count 5.15 M/mm3 (4.6-6.2); White Blood Count 8.4 K/mm3 (4.4-11.0)
[2019-09-03 10:52] LABS: Absolute Lymphocyte Count 1.39 X10^3/uL (0.83-4.51); Basophil# 0.04 X10^3/uL; Basophil% 0.5 % (0-1); Eosinophil# 0.24 X10^3/uL; Eosinophils% 2.9 % (0-5); Lymphocyte # 1.39 X10^3/ul (4.0); Lymphocyte % 16.6 % (19-41); Mean Corp Hgb Conc 34.1 g/dL (32-36); Mean Corpuscular Hgb 29.1 pg (27.0-32.0); Mean Corpuscular Volume 85.4 fL (80-94); Mean Platelet Vol. 9.1 fl (6.2-12.0); Monocyte# 0.73 X10^3/uL; Monocyte% 8.7 % (0-10); NRBC Flagged by Analyzer 0 % (0-5); Neutrophil # 5.95 X10^3/uL (2.7-7.7); Neutrophil % 70.9 % (47-70); Platelet Count 292 K/mm3 (150-450); RBC Distribution Width CV 12.1 % (11.6-14.6); RBC Distribution Width SD 37.8 fl (35.1-43.9)
[2019-09-03 11:07] LABS: ALB/GLOB Ratio 0.9 RATIO (0.9-2.4); AST(SGOT) 17 U/L (15-37); Alanine Aminotransfer ALT/SGPT 26 U/L (16-61); Albumin, Serum 3.3 g/dL (3.2-5.0); Alkaline Phosphatase 113 U/L (45-117); Anion Gap 6 (5-15); BUN 18 mg/dL (7-18); BUN/Creat Ratio 17.5 RATIO (10-20); Calcium,Total 8.8 mg/dL (8.5-10.1); Chloride 100 mmol/L (98-107); Cholesterol 174 mg/dL (200); Creatinine, Serum 1.03 mg/dL (0.70-1.30); EST Glomerular Filtration Rate 78 mL/min (>60); Est Glom Filt Rate - Afr Amer 95 mL/min (>60); Globulin 3.7 g/dL (2.2-4.2); Glucose 107 mg/dL (74-106); High Density Lipoprotein 35 mg/dL; Sodium Level 137 mmol/L (136-145); Triglycerides 169 mg/dL; Very Low Density Lipoprotein 34 mg/dL (5-40)
== END ==
DX: G60.9 Hereditary and idiopathic neuropathy, unspecified (principal); I25.10 Atherosclerotic heart disease of native coronary artery without angina pectoris; I48.20 Chronic atrial fibrillation, unspecified
CPT/HCPCS: 36415; 80053; 80061; 85025; 85652

== ENCOUNTER → 2020-09-22 07:07 | Outpatient (CLI) | payer OTHER, SELFPAY ==
[2019-06-18 11:58] VITALS: BMI 34.5
[2020-09-22 10:07] LABS: Absolute Lymphocyte Count 1.41 X10^3/uL (0.83-4.51); Basophil# 0.04 X10^3/uL; Basophil% 0.5 % (0-1); Eosinophil# 0.27 X10^3/uL; Eosinophils% 3.2 % (0-5); Hematocrit 47.5 % (40-54); Hemoglobin 15.4 g/dL (13.0-16.5); Lymphocyte # 1.41 X10^3/ul (4.0); Lymphocyte % 16.6 % (19-41); Mean Corp Hgb Conc 32.4 g/dL (32-36); Mean Corpuscular Hgb 27.9 pg (27.0-32.0); Mean Corpuscular Volume 86.2 fL (80-94); Mean Platelet Vol. 9.2 fl (6.2-12.0); Monocyte# 0.74 X10^3/uL; Monocyte% 8.7 % (0-10); NRBC Flagged by Analyzer 0 % (0-5); Neutrophil # 6.01 X10^3/uL (2.7-7.7); Neutrophil % 70.5 % (47-70); Platelet Count 260 K/mm3 (150-450); RBC Distribution Width CV 12.9 % (11.6-14.6); RBC Distribution Width SD 40.3 fl (35.1-43.9); Red Blood Count 5.51 M/mm3 (4.6-6.2); White Blood Count 8.5 K/mm3 (4.4-11.0)
[2020-09-22 10:24] LABS: Hemoglobin A1c 6.5 % (3.8-5.6)
[2020-09-22 10:25] LABS: ALB/GLOB Ratio 0.9 RATIO (0.9-2.4); AST(SGOT) 16 U/L (15-37); Alanine Aminotransfer ALT/SGPT 25 U/L (16-61); Albumin, Serum 3.4 g/dL (3.2-5.0); Alkaline Phosphatase 109 U/L (45-117); Anion Gap 6 (5-15); BUN 21 mg/dL (7-18); BUN/Creat Ratio 19.6 RATIO (10-20); Calcium,Total 8.9 mg/dL (8.5-10.1); Chloride 99 mmol/L (98-107); Cholesterol 190 mg/dL (200); Creatinine, Serum 1.07 mg/dL (0.70-1.30); EST Glomerular Filtration Rate 75 mL/min (>60); Est Glom Filt Rate - Afr Amer 90 mL/min (>60); Globulin 3.7 g/dL (2.2-4.2); Glucose 123 mg/dL (74-106); High Density Lipoprotein 39 mg/dL; Potassium 3.9 mmol/L (3.5-5.1); Protein, Total 7.1 g/dL (6.4-8.2); Sodium Level 137 mmol/L (136-145); Triglycerides 220 mg/dL; Very Low Density Lipoprotein 44 mg/dL (5-40)
== END ==
PROVIDERS: PCP Nurse Practitioner Family; Referring Provider Nurse Practitioner Family; Visit Provider Nurse Practitioner Family
DX: R73.01 Impaired fasting glucose (principal)
CPT/HCPCS: 36415; 80053; 80061; 83036; 85025

== ENCOUNTER → 2020-12-20 07:38 | Outpatient (CLI) | payer OTHER, SELFPAY ==
[2019-06-18 11:58] VITALS: BMI 34.5
[2020-12-20 10:27] LABS: Hemoglobin A1c 10.3 % (3.8-5.6)
[2020-12-20 10:35] LABS: ALB/GLOB Ratio 0.9 RATIO (0.9-2.4); AST(SGOT) 16 U/L (15-37); Alanine Aminotransfer ALT/SGPT 32 U/L (16-61); Albumin, Serum 3.3 g/dL (3.2-5.0); Alkaline Phosphatase 116 U/L (45-117); Anion Gap 7 (5-15); BUN 19 mg/dL (7-18); BUN/Creat Ratio 16.1 RATIO (10-20); Calcium,Total 8.7 mg/dL (8.5-10.1); Chloride 97 mmol/L (98-107); Creatinine, Serum 1.18 mg/dL (0.70-1.30); EST Glomerular Filtration Rate 67 mL/min (>60); Est Glom Filt Rate - Afr Amer 81 mL/min (>60); Globulin 3.5 g/dL (2.2-4.2); Glucose 246 mg/dL (74-106); Potassium 3.8 mmol/L (3.5-5.1); Protein, Total 6.8 g/dL (6.4-8.2); Sodium Level 133 mmol/L (136-145)
== END ==
PROVIDERS: PCP Nurse Practitioner Family; Referring Provider Nurse Practitioner Family; Visit Provider Nurse Practitioner Family
DX: R73.01 Impaired fasting glucose (principal)
CPT/HCPCS: 36415; 80053; 83036

== ENCOUNTER → 2021-03-13 07:28 | Outpatient (CLI) | payer OTHER, SELFPAY ==
[2019-06-18 11:58] VITALS: BMI 34.5
[2021-03-13 10:21] LABS: ALB/GLOB Ratio 0.9 RATIO (0.9-2.4); AST(SGOT) 23 U/L (15-37); Alanine Aminotransfer ALT/SGPT 34 U/L (16-61); Albumin, Serum 3.7 g/dL (3.2-5.0); Alkaline Phosphatase 114 U/L (45-117); Anion Gap 5 (5-15); BUN 18 mg/dL (7-18); BUN/Creat Ratio 16.5 RATIO (10-20); Calcium,Total 9.6 mg/dL (8.5-10.1); Chloride 96 mmol/L (98-107); Creatinine, Serum 1.09 mg/dL (0.70-1.30); EST Glomerular Filtration Rate 73 mL/min (>60); Est Glom Filt Rate - Afr Amer 88 mL/min (>60); Glucose 134 mg/dL (74-106); Potassium 3.6 mmol/L (3.5-5.1); Protein, Total 7.7 g/dL (6.4-8.2); Sodium Level 133 mmol/L (136-145)
== END ==
PROVIDERS: PCP Nurse Practitioner Family; Referring Provider Nurse Practitioner Family; Visit Provider Nurse Practitioner Family
DX: E11.65 Type 2 diabetes mellitus with hyperglycemia (principal)
CPT/HCPCS: 36415; 80053; 83036

== ENCOUNTER 2021-12-11 10:20 | Outpatient (CLI) | payer MEDICAID, SELFPAY ==
[2021-12-11 11:23] LABS: Absolute Lymphocyte Count 1.64 X10^3/uL (0.83-4.51); Absolute Neutrophil Count 6.1 X10^3/uL (2.0-7.7); Basophil# 0.06 X10^3/uL; Basophil% 0.7 % (0-1); Eosinophil# 0.27 X10^3/uL; Hematocrit 48.4 % (40-54); Hemoglobin 16.4 g/dL (13.0-16.5); Lymphocyte # 1.64 X10^3/ul (0.83-4.51); Lymphocyte % 18.1 % (19-41); Mean Corp Hgb Conc 33.9 g/dL (32-36); Mean Corpuscular Hgb 28.7 pg (27.0-32.0); Mean Corpuscular Volume 84.8 fL (80-94); Monocyte# 0.98 X10^3/uL; Monocyte% 10.8 % (0-10); NRBC Flagged by Analyzer 0 % (0-5); Neutrophil # 6.05 X10^3/uL (2.7-7.7); Platelet Count 241 K/mm3 (150-450); RBC Distribution Width CV 14.8 % (11.6-14.6); RBC Distribution Width SD 44.8 fl (35.1-43.9); Red Blood Count 5.71 M/mm3 (4.6-6.2)
[2021-12-11 11:55] LABS: AST(SGOT) 15 U/L (15-37); Alanine Aminotransfer ALT/SGPT 32 U/L (16-61); Albumin, Serum 3.6 g/dL (3.2-5.0); Alkaline Phosphatase 164 U/L (45-117); Anion Gap 6 (5-15); BUN 18 mg/dL (7-18); BUN/Creat Ratio 17.8 RATIO (10-20); Bilirubin, Direct 0.13 mg/dL (0.00-0.30); Calcium,Total 9.5 mg/dL (8.5-10.1); Chloride 103 mmol/L (98-107); Cholesterol 240 mg/dL (200); Creatinine, Serum 1.01 mg/dL (0.70-1.30); EST Glomerular Filtration Rate 79 mL/min (>60); Est Glom Filt Rate - Afr Amer 96 mL/min (>60); Globulin 4.4 g/dL (2.2-4.2); Glucose 142 mg/dL (74-106); High Density Lipoprotein 45 mg/dL; Potassium 4.1 mmol/L (3.5-5.1); Sodium Level 138 mmol/L (136-145); Triglycerides 205 mg/dL; Very Low Density Lipoprotein 41 mg/dL (5-40)
== END 2021-12-11 23:59 | disposition short-term general hospital (02) ==
LOC: LAB 10:23
PROVIDERS: PCP Nurse Practitioner Family; Referring Provider Nurse Practitioner Gerontology; Visit Provider Nurse Practitioner Gerontology
DX: I10 Essential (primary) hypertension (principal); I48.0 Paroxysmal atrial fibrillation; E78.5 Hyperlipidemia, unspecified
CPT/HCPCS: 36415; 80048; 80061; 80076; 85025

== ENCOUNTER → 2022-05-08 | Outpatient (CLI) | payer MEDICAID, SELFPAY ==
--- NOTE | 2022-05-08 13:55 | STRESSREP ---
Stress Test Report Exercise myocardial perfusion stress test. 61-year-old male with a history of chest pain. Stress protocol: Resting EKG demonstrates normal sinus rhythm with a rate of 78 bpm incomplete right bundle branch block is noted. The patient exercised according to the regular Nic protocol for total duration of 4 minutes and 30 seconds. The maximum heart rate attained was 164 bpm which was 103% of max impacted heart rate the maximum workload was 7 metabolic equivalents. At rest there were no ST or T wave changes noted suggest ischemia at peak exercise upsloping ST changes only were noted with did not meet the criteria for ischemia. No clinical angina was noted. The resting blood pressure was 136/86 mmHg with a final blood pressure 162/70 mmHg. Myocardial perfusion protocol. 14.7 mCi of technetium 99m sestamibi was injected stress images were obtained. The patient exercised according to regular Nic protocol for 4-1/2 minutes and at peak exercise 44.3 mCi of technetium 99m sestamibi was injected stress images were obtained stress and rest images were reconstructed and compared in the short axis vertical long and horizontal long axis. Gated images were also obtained to Perfusion SPECT analysis: Review of the stress images demonstrate normal uptake of tracer noted in all areas of the myocardium. The resting images similarly demonstrate normal uptake of tracer noted in all areas of the myocardium. No reversibility is noted suggest ischemia and no previous infarct is noted. Gated SPECT analysis: The gated ejection fraction is noted to be 60%. Conclusion: Normal exercise myocardial perfusion stress test at a moderate workload. Preserved ejection fraction.
== END | disposition home or self-care (01) ==
LOC: CVS 06:18
PROVIDERS: PCP Nurse Practitioner Family; Referring Provider Internal Medicine Cardiovascular Disease; Visit Provider Internal Medicine Cardiovascular Disease
DX: I25.10 Atherosclerotic heart disease of native coronary artery without angina pectoris (principal); I48.0 Paroxysmal atrial fibrillation; Z95.5 Presence of coronary angioplasty implant and graft; I25.5 Ischemic cardiomyopathy; I10 Essential (primary) hypertension; E78.5 Hyperlipidemia, unspecified
CPT/HCPCS: 78452; 93017; A9500; A4216

== ENCOUNTER → 2022-05-24 | Outpatient (CLI) | payer MEDICAID, SELFPAY ==
[2022-05-24 10:00] LABS: Absolute Lymphocyte Count 1.63 X10^3/uL (0.83-4.51); Absolute Neutrophil Count 5.9 X10^3/uL (2.0-7.7); Basophil# 0.07 X10^3/uL; Basophil% 0.8 % (0-1); Eosinophil# 0.21 X10^3/uL; Eosinophils% 2.5 % (0-5); Lymphocyte # 1.63 X10^3/ul (0.83-4.51); Lymphocyte % 19.3 % (19-41); Mean Corp Hgb Conc 34.8 g/dL (32-36); Mean Corpuscular Hgb 30.2 pg (27.0-32.0); Mean Corpuscular Volume 86.8 fL (80-94); Mean Platelet Vol. 8.7 fl (6.2-12.0); Monocyte# 0.59 X10^3/uL; NRBC Flagged by Analyzer 0 % (0-5); Neutrophil # 5.92 X10^3/uL (2.7-7.7); Neutrophil % 69.9 % (47-70); Platelet Count 275 K/mm3 (150-450); RBC Distribution Width CV 12.5 % (11.6-14.6); RBC Distribution Width SD 39.5 fl (35.1-43.9); White Blood Count 8.5 K/mm3 (4.4-11.0)
[2022-05-24 10:16] LABS: ALB/GLOB Ratio 0.8 RATIO (0.9-2.4); AST(SGOT) 17 U/L (15-37); Alanine Aminotransfer ALT/SGPT 26 U/L (16-61); Albumin, Serum 3.5 g/dL (3.2-5.0); Alkaline Phosphatase 113 U/L (45-117); Anion Gap 8 (5-15); BUN 21 mg/dL (7-18); BUN/Creat Ratio 18.1 RATIO (10-20); Calcium,Total 9.5 mg/dL (8.5-10.1); Chloride 99 mmol/L (98-107); Cholesterol 259 mg/dL (200); Creatinine, Serum 1.16 mg/dL (0.70-1.30); EST Glomerular Filtration Rate 68 mL/min (>60); Est Glom Filt Rate - Afr Amer 82 mL/min (>60); Globulin 4.4 g/dL (2.2-4.2); Glucose 140 mg/dL (74-106); High Density Lipoprotein 35 mg/dL; Potassium 3.8 mmol/L (3.5-5.1); Protein, Total 7.9 g/dL (6.4-8.2); Sodium Level 136 mmol/L (136-145); Triglycerides 394 mg/dL; Very Low Density Lipoprotein 79 mg/dL (5-40)
[2022-05-24 10:23] LABS: Hemoglobin A1c 6.7 % (3.8-5.6)
[2022-05-24 10:34] LABS: Microalbumin,Random Urine 20.1 mg/L (NO RANGE EST.); Microalbumin:Creatinine Ratio 19.9 mg/g CRE (<30 mg/g CRE)
== END | disposition home or self-care (01) ==
PROVIDERS: PCP Nurse Practitioner Family; Referring Provider Nurse Practitioner Family; Visit Provider Nurse Practitioner Family
DX: E11.65 Type 2 diabetes mellitus with hyperglycemia (principal); I10 Essential (primary) hypertension; E78.2 Mixed hyperlipidemia
CPT/HCPCS: 36415; 80053; 80061; 82043; 82570; 83036; 85025

== ENCOUNTER → 2022-09-03 | Outpatient (CLI) | payer MEDICAID, SELFPAY ==
[2022-09-03 11:26] LABS: ALB/GLOB Ratio 0.7 RATIO (0.9-2.4); AST(SGOT) 19 U/L (15-37); Alanine Aminotransfer ALT/SGPT 40 U/L (16-61); Albumin, Serum 3.3 g/dL (3.2-5.0); Alkaline Phosphatase 116 U/L (45-117); Anion Gap 6 (5-15); BUN 18 mg/dL (7-18); BUN/Creat Ratio 14.2 RATIO (10-20); Calcium,Total 9.4 mg/dL (8.5-10.1); Chloride 99 mmol/L (98-107); Cholesterol 205 mg/dL (200); Creatinine, Serum 1.27 mg/dL (0.70-1.30); EST Glomerular Filtration Rate 61 mL/min (>60); Est Glom Filt Rate - Afr Amer 74 mL/min (>60); Globulin 4.5 g/dL (2.2-4.2); Glucose 121 mg/dL (74-106); High Density Lipoprotein 40 mg/dL; Potassium 4.3 mmol/L (3.5-5.1); Protein, Total 7.8 g/dL (6.4-8.2); Sodium Level 135 mmol/L (136-145); Triglycerides 303 mg/dL; Very Low Density Lipoprotein 61 mg/dL (5-40)
[2022-09-03 11:31] LABS: Hemoglobin A1c 5.9 % (3.8-5.6)
== END | disposition home or self-care (01) ==
LOC: MTLAB 08:13
PROVIDERS: PCP Nurse Practitioner Family; Referring Provider Nurse Practitioner Family; Visit Provider Nurse Practitioner Family
DX: E11.65 Type 2 diabetes mellitus with hyperglycemia (principal); E78.2 Mixed hyperlipidemia
CPT/HCPCS: 36415; 80053; 80061; 83036

== ENCOUNTER → 2023-02-06 | Outpatient (CLI) | payer MEDICAID, SELFPAY ==
[2023-02-06 17:07] LABS: Creatinine, Serum 1.32 mg/dL (0.70-1.30); EST Glomerular Filtration Rate 58 mL/min (>60); Est Glom Filt Rate - Afr Amer 70 mL/min (>60)
== END | disposition home or self-care (01) ==
LOC: LAB 14:01
PROVIDERS: PCP Nurse Practitioner Family; Referring Provider Student in an Organized Health Care Education/Training Program; Visit Provider Student in an Organized Health Care Education/Training Program
DX: N28.9 Disorder of kidney and ureter, unspecified (principal)
CPT/HCPCS: 36415; 82565

== ENCOUNTER → 2023-02-20 | Outpatient (CLI) | payer MEDICAID, SELFPAY ==
--- NOTE | 2023-02-20 12:20 | RAD_ITS ---
CLINICAL HISTORY: Male, 62 years old. Chronic right shoulder pain. PROCEDURE: ARTHROGRAM - RIGHT SHOULDER CONSENT: The procedure as well as the benefits and possible complications including infection and bleeding were described to the patient. Informed consent was obtained. FLUOROSCOPY TIME (if supplied): (32 seconds) minutes/seconds. 19.04 mGy Injection Information: 10 cc of dilute MRI contrast. Number of images obtained: 5 TECHNIQUE: (All elements of maximal sterile barrier technique followed, including US elements as applicable) The patient was in the supine position. The overlying skin was prepped and draped in the usual sterile fashion. Following local anesthetic application and direct fluoroscopic guidance, a 22-gauge spinal needle was placed in the shoulder joint. 2 cc of contrast was injected for confirmation. Following this, 10 cc of dilute MR contrast was injected. RAD/Arthrogram Shoulder w/ MRI IMPRESSION: Successful right shoulder arthrogram for MRI imaging. The patient tolerated the procedure well. Electronically Signed: Saleem Warren MD at 14:25 EDT ,
[2023-02-20] MEDS: Lidocaine 2% (5ml sdv) 5 ML VIAL.MPF INFILT (13:06)
[2023-02-20] MEDS: Gadoterate Meglumine Diluted 10 ML, Iopamidol 5 ML, Lidocaine 1% (20 ml mdv) 5 ML, Epin... INTRAARTIC (13:08)
[2023-02-20] MEDS: Iopamidol 10 ML in Syringe 1 EACH 600 ML INTRAARTIC (13:08)
--- NOTE | 2023-02-20 13:45 | MRI_ITS ---
EXAM: MR RIGHT UPPER EXTREMITY ARTHROGRAM WITH INTRAVENOUS CONTRAST, SHOULDER CLINICAL INDICATION: RIGHT shoulder pain -- Arthrogram TECHNIQUE: Multiplanar and multisequence MR images of the right shoulder following injection of dilute gadolinium into the joint space. This report was created using AquaMost report [employer] technology. CONTRAST: The examination was performed following intra articular injection of 10mL arthrogram solution, containing a mixture of 0.8 mL of Clariscan in 100 mL of saline, into the joint by Dr Warren COMPARISON: None. FINDINGS: ARTIFACTS: Significant motion artifact limits assessment. TENDONS: SUPRASPINATUS: Full-thickness fullwidth supraspinatus tendon tear with retraction of the torn tendon fibers to the top of the humeral head. INFRASPINATUS: Unremarkable. No infraspinatus tendon tear. SUBSCAPULARIS: Unremarkable. Intact. TERES MINOR: Unremarkable. Intact. BICEPS BRACHII, LONG HEAD: Query biceps tenosynovitis. LIGAMENTS: GLENOHUMERAL: Unremarkable. Intact. MUSCLES: Unremarkable. No rotator cuff muscle atrophy. FLUID: Large amount of fluid in the subacromial/subdeltoid bursa appears to communicate with the the glenohumeral joint via a full-thickness fullwidth supraspinatus tendon tear. CARTILAGE: Unremarkable. Articular cartilage intact. GLENOID LABRUM: Unremarkable. No definite labral tearing. BONES/JOINTS: Please refer to separate report for dictation of the fluoroscopically guided injection procedure into the glenohumeral joint, which was performed another radiologist. Type II acromion with curved undersurface. No subacromial enthesophyte or os acromiale. Arozpupt-mg-itgspu hypertrophic degenerative changes of the acromioclavicular joint with no significant mass effect on the underlying soft tissues. OTHER SOFT TISSUES: Unremarkable. No rotator interval edema. MRI/Upper Ext Jt Only W/Contrast IMPRESSION: 1. Full-thickness fullwidth supraspinatus tendon tear with retraction of the torn tendon fibers to the top of the humeral head. 2. Contrast injected into the glenohumeral joint appears to cross the full-thickness defect into the subacromial/subdeltoid bursa 3. No definite labral tear. Electronically Signed: Ata Marroquin MD at 1:47 EDT ,
== END | disposition home or self-care (01) ==
LOC: RAD 11:58
PROVIDERS: PCP Nurse Practitioner Family; Referring Provider Student in an Organized Health Care Education/Training Program; Visit Provider Student in an Organized Health Care Education/Training Program
DX: M25.511 Pain in right shoulder (principal); S46.011D Strain of muscle(s) and tendon(s) of the rotator cuff of right shoulder, subsequent encounter
CPT/HCPCS: 23350; 73222; 77002; Q9967

== ENCOUNTER → 2023-08-01 | Outpatient (CLI) | payer MEDICAID, SELFPAY ==
[2023-08-01 10:03] LABS: Digoxin Level 0.86 ng/mL (0.80-2.00)
== END | disposition home or self-care (01) ==
PROVIDERS: PCP Family Medicine; Referring Provider Nurse Practitioner Gerontology; Visit Provider Nurse Practitioner Gerontology
DX: R45.0 Nervousness (principal); I48.0 Paroxysmal atrial fibrillation; R63.0 Anorexia; R11.0 Nausea; H53.9 Unspecified visual disturbance
CPT/HCPCS: 36415; 80162

== ENCOUNTER → 2023-09-18 | Outpatient (CLI) | payer MEDICAID, SELFPAY ==
[2023-09-18 10:16] LABS: ALB/GLOB Ratio 0.8 RATIO (0.9-2.4); AST(SGOT) 18 U/L (15-37); Alanine Aminotransfer ALT/SGPT 42 U/L (16-61); Albumin, Serum 3.3 g/dL (3.2-5.0); Alkaline Phosphatase 110 U/L (45-117); Anion Gap 6 (5-15); BUN 16 mg/dL (7-18); BUN/Creat Ratio 14.8 RATIO (10-20); Calcium,Total 9.1 mg/dL (8.5-10.1); Chloride 104 mmol/L (98-107); Cholesterol 214 mg/dL (200); Creatinine, Serum 1.08 mg/dL (0.70-1.30); EST Glomerular Filtration Rate 73 mL/min (>60); Est Glom Filt Rate - Afr Amer 89 mL/min (>60); Glucose 117 mg/dL (74-106); High Density Lipoprotein 35 mg/dL; Magnesium 1.9 mg/dL (1.6-2.6); Potassium 3.4 mmol/L (3.5-5.1); Protein, Total 7.3 g/dL (6.4-8.2); Sodium Level 137 mmol/L (136-145); Triglycerides 343 mg/dL; Very Low Density Lipoprotein 69 mg/dL (5-40)
[2023-09-18 21:12] LABS: Hemoglobin A1c 5.9 % (3.8-5.6)
== END | disposition home or self-care (01) ==
LOC: LAB 08:48
PROVIDERS: PCP Family Medicine; Referring Provider Family Medicine; Visit Provider Family Medicine
DX: E11.9 Type 2 diabetes mellitus without complications (principal); I48.91 Unspecified atrial fibrillation; I10 Essential (primary) hypertension; E78.2 Mixed hyperlipidemia
CPT/HCPCS: 36415; 80053; 80061; 83036; 83735

== ENCOUNTER → 2024-05-10 | Outpatient (CLI) | payer MEDICAID, SELFPAY ==
--- NOTE | 2024-05-10 11:40 | RAD_ITS ---
HISTORY: Spondylosis without myelopathy or radiculopathy, lumbar region. TECHNIQUE: XR Spine Lumbar 2 or 3 Views. COMPARISON: CT 12/23/2018. FINDINGS: VERTEBRAE: Vertebral body heights preserved. No acute fracture identified. Anterior osteophytes of T11-12 again seen. Degenerative changes the posterior elements. ALIGNMENT: No significant anterior or posterior subluxation. INTERVERTEBRAL DISCS: Degenerative endplate changes with osteophytes and intervertebral disc space narrowing at multiple levels particularly L5-S1. SOFT TISSUES: Calcified gallstones again seen in the right upper quadrant. RAD/Lumbar Spine 2 or 3 Views IMPRESSION: No acute fracture or dislocation identified in the lumbar spine. Multilevel degenerative change. Electronically Signed: Marivel Perales MD at 8:58 EDT ,
[2024-05-10 12:02] LABS: Color, Urine Yellow (Yellow); Glucose, Dipstick Normal (Normal); Ketone-Dipstick Negative (Negative); Leukocyte Esterase-Dipstick Negative /ul (Negative); Nitrite-Dipstick Negative (Negative); Occult Blood-Urine Negative /ul (Negative); Protein-Dipstick Negative (Negative); Urine Bilirubin Dipstick Negative (Negative); Urine Clarity Clear (Clear); Urine Urobilinogen Normal (Normal)
== END | disposition home or self-care (01) ==
LOC: LAB 11:19
PROVIDERS: PCP Internal Medicine; Referring Provider Anesthesiology Pain Medicine; Visit Provider Anesthesiology Pain Medicine
DX: M47.816 Spondylosis without myelopathy or radiculopathy, lumbar region (principal); F11.20 Opioid dependence, uncomplicated
CPT/HCPCS: 72100; 81002

== ENCOUNTER → 2024-06-23 | Outpatient (CLI) | payer MEDICARE, SELFPAY ==
[2024-06-23 12:13] LABS: Absolute Lymphocyte Count 1.82 X10^3/uL (0.83-4.51); Absolute Neutrophil Count 6.4 X10^3/uL (2.0-7.7); Basophil# 0.05 X10^3/uL; Basophil% 0.5 % (0-1); Eosinophil# 0.19 X10^3/uL; Eosinophils% 2.1 % (0-5); Hematocrit 47.4 % (40-54); Hemoglobin 16.2 g/dL (13.0-16.5); Lymphocyte # 1.82 X10^3/ul (0.83-4.51); Lymphocyte % 19.8 % (19-41); Mean Corp Hgb Conc 34.2 g/dL (32-36); Mean Corpuscular Volume 87.8 fL (80-94); Monocyte# 0.67 X10^3/uL; Monocyte% 7.3 % (0-10); NRBC Flagged by Analyzer 0 % (0-5); Neutrophil # 6.43 X10^3/uL (2.7-7.7); Neutrophil % 69.9 % (47-70); Platelet Count 295 K/mm3 (150-450); RBC Distribution Width CV 12.9 % (11.6-14.6); RBC Distribution Width SD 40.8 fl (35.1-43.9); White Blood Count 9.2 K/mm3 (4.4-11.0)
[2024-06-23 12:29] LABS: ALB/GLOB Ratio 0.9 RATIO (0.9-2.4); AST(SGOT) 18 U/L (15-37); Alanine Aminotransfer ALT/SGPT 28 U/L (16-61); Albumin, Serum 3.8 g/dL (3.2-5.0); Alkaline Phosphatase 103 U/L (45-117); Anion Gap 7 (5-15); BUN 16 mg/dL (7-18); BUN/Creat Ratio 12.7 RATIO (10-20); Bilirubin, Direct 0.16 mg/dL (0.00-0.30); Calcium,Total 9.8 mg/dL (8.5-10.1); Chloride 100 mmol/L (98-107); Cholesterol 260 mg/dL (200); Creatinine, Serum 1.26 mg/dL (0.70-1.30); EST Glomerular Filtration Rate 61 mL/min (>60); Est Glom Filt Rate - Afr Amer 74 mL/min (>60); Globulin 4.2 g/dL (2.2-4.2); Glucose 115 mg/dL (74-106); High Density Lipoprotein 49 mg/dL; Potassium 3.6 mmol/L (3.5-5.1); Sodium Level 135 mmol/L (136-145); Triglycerides 269 mg/dL; Very Low Density Lipoprotein 54 mg/dL (5-40)
== END | disposition home or self-care (01) ==
LOC: BIMLAB 10:37
PROVIDERS: PCP Internal Medicine; Referring Provider Physician Assistant; Visit Provider Physician Assistant
DX: E78.5 Hyperlipidemia, unspecified (principal); I10 Essential (primary) hypertension
CPT/HCPCS: 36415; 80053; 80061; 82248; 85025

== ENCOUNTER 2024-07-05 09:30 | Outpatient (RCR) | payer MEDICARE, SELFPAY ==
--- NOTE | 2024-06-14 10:56 | HP.PTEVAL_ITS ---
Patient's Visit Information Visit Information Visit Information: EDUARD DIAZ II is a 64 year old M referred to Physical Therapy by Dr. Anahi Terry MD with a diagnosis of BACK PAIN. Date of Evaluation: 06/14/24 Physical Therapist: Barry Leslie PT, Cert MDT, OCS Visit Plan Frequency: 2x /Week Duration: 4 Weeks Plan: PT INTERVENTIONS POSTURAL EX'S ,DLS (BACK/ABDOMINAL ) ,LE FLEXABILITY , ACTIVITY MODIFICATION AND MODALTIES Subjective Subjective: This 64 y/o male presents to physical therapy with back pain. Patient has had back pain for many years . Seen Dr Cobian and recommended PT and epidural injections but patient wants to want.Medication gabapentin. Patient pain symmetrical lumbar pain no leg pain. Patient has no PT in past . Described as ache. Aggravating factors bending,lifting . Alleviating factors sitting okay with walking . Bowel/bladder-. Denies paresthesia/tingling in legs ,except extended sitting causes numbness in feet. Sleeping okay. Patient pain affects QOL and function. Patient goals to decrease pain . 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 [employer] Pain Bilateral Back: Pain Intensity (Out of 10): 6 Pain Intensity Range: 10 Objective Objective: POSTURE: mild forward posture PALAPTION: tender paraspinals /erector spinalis NEURO: c/o paresthesia/tingling in feet ,reflexes L3-4,L4-5,L5- S1 1/3 FLEXABILITY: hamstrings mod tight LUMBAR ROM: flexion mod loss ,side glides mod loss ,extension mod loss MMT: quads/hams 4/5 ,hip flexion 4-/5 ,ankle 4/5 GAIT: Ambulates with reciprocal pattern Special Tests L/S Slump test left side: Positive L/S Slump test right side: Positive L/S Left Straight Leg Raise: Negative L/S Right Straight Leg Raise: Negative Lumbar Standing: Flexion - Mechanical Response: No effect Lumbar Standing: Flexion - Symptoms During Testing: Increases Lumbar Standing: Flexion - Symptoms After Testing: Worse Lumbar Standing: Extension - Mechanical Response: No effect Lumbar Standing: Extension - Symptoms During Testing: Increases Lumbar Standing: Extension - Symptoms After Testing: Worse Lumbar Standing: Right Side Glides - Mechanical Response: No effect Lumbar Standing: Right Side [place] - Symptoms During Testing: No effect Lumbar Standing: Right Side [place] - Symptoms After Testing: No effect Lumbar Standing: Left Side [place] - Mechanical Response: No effect Lumbar Standing: Left Side [place] - Symptoms During Testing: No effect Lumbar Standing: Left Side [place] - Symptoms After Testing: No effect Balance/Special Test Scores Oswestry Low Back Score: 28 Goals Goal 1:: I with HEP for back Goal Time Frame: 4-6 Weeks Goal 2:: Patient to demonstrate 50% improvement with less pain and improved function Goal Time Frame: 4-6 Weeks Goal 3:: Patient to improve function of recovery lumbar ROM to lift in garage Goal Time Frame: 4-6 Weeks Goal 4:: Patient to improve back oswestry score by 5 points to improve QOL and function Goal Time Frame: 4-6 Weeks Goal 5:: Patient be able to perform ADLS and housework tasks with min limitations Goal Time Frame: 4-6 Weeks Rehabilitation Potential Physical Therapy Diagnosis: Patient has lumbar pain with pain with position and motion testing worse with bending/lifting better with walking thus benefit from skilled PT Rehabilitation Potential: Good Anticipated Interventions Patient/Client Instruction: Educate patient on: Condition and Plan of Care For the Purpose of:: To decrease pain, To increase ROM, To improve muscle performance and motor function, To improve ability to perform ADL's, To improve performance and independence with ADL's, To improve ability of physical actions for home/community/work/leisure, To improve health of tissue, To decrease soft tissue restriction, To increase flexibility/ROM, To improve endurance, To reduce risk of recurrence and To improve tolerance to ADL's Therapeutic Exercise to Include: Strength training, Endurance training, Body mechanics, Postural training, Flexibilty training and Dynamic Lumbar Stabilization For the Purpose of:: To decrease pain, To increase ROM, To improve muscle performance and motor function, To increase tolerance to activity/condition/position, To improve health of tissue, To decrease soft tissue restriction, To increase flexibility/ROM and To reduce risk of recurrence TENS: Yes IF ES: Yes Cryotherapy (ice pack, ice massage): Yes Thermo therapy (hot pack): Yes Ultrasound (thermal/non thermal): Yes For the Purpose of:: To decrease pain, To increase ROM, To improve nutrient delivery to tissue, To increase oxygenation perfusion, To improve health of tissue and To decrease soft tissue restriction Text: Thank you for the opportunity to evaluate your patient. For Medicare and Medicare HMO plans, please review the plan of care and approve it. It will need to be FAXED BACK to us at [phone] for Medicare purposes. For Medicare only, by signing this I certify the plan of care. Please let me know if there are questions or concerns regarding this plan of care. Physician Signature: Date:
--- NOTE | 2024-11-10 13:45 | HP.PTDCNRP_ITS ---
Patient Information Patient Information: EDUARD DIAZ II was seen in my office for initial evaluation on 06/14/24. The following Plan of Care was established for this patient: POC Established Initial Frequency: 2x /Week Initial Duration: 4 Weeks Anticipated Interventions Patient/Client Instruction: Educate patient on: Condition and Plan of Care For the Purpose of:: To decrease pain, To increase ROM, To improve muscle performance and motor function, To improve ability to perform ADL's, To improve performance and independence with ADL's, To improve ability of physical actions for home/community/work/leisure, To improve health of tissue, To decrease soft tissue restriction, To increase flexibility/ROM, To improve endurance, To reduce risk of recurrence and To improve tolerance to ADL's Therapeutic Exercise to Include: Strength training, Endurance training, Body mechanics, Postural training, Flexibilty training and Dynamic Lumbar Sta bilization For the Purpose of:: To decrease pain, To increase ROM, To improve muscle performance and motor function, To increase tolerance to activity/condition/position, To improve health of tissue, To decrease soft tissue restriction, To increase flexibility/ROM and To reduce risk of recurrence TENS: Yes IF ES: Yes Cryotherapy (ice pack, ice massage): Yes Thermo therapy (hot pack): Yes Ultrasound (thermal/non thermal): Yes For the Purpose of:: To decrease pain, To increase ROM, To improve nutrient delivery to tissue, To increase oxygenation perfusion, To improve health of tissue and To decrease soft tissue restriction Last Seen Last Seen: This patient was last seen in our office . Pertinent comments regarding their Physical therapy will appear below: Patient was seen for PT for back pain for HEP ,DLS ,STRENGTHENING AND FLEXABILITY At this point I will be discontinuing this patient from physical therapy. I would be happy to see this patient again in the future if found appropriate by the physician. Thank you! Barry Leslie, PT, Cert MDT, OCS Balance/Gait/Functional tests Balance/Special Test Scores Oswestry Low Back Score: 28
== END 2024-07-05 19:00 | disposition home or self-care (01) ==
LOC: PT 09:30
PROVIDERS: PCP Internal Medicine; Referring Provider Anesthesiology Pain Medicine; Visit Provider Anesthesiology Pain Medicine
DX: M54.9 Dorsalgia, unspecified (principal)
CPT/HCPCS: 97110; 97162

== ENCOUNTER → 2024-10-19 | Outpatient (CLI) | payer MEDICARE, SELFPAY ==
[2024-10-19 12:28] LABS: Vitamin B12 780 pg/mL (211-911); Vitamin D,25 Hydroxy 10.5 ng/mL
[2024-10-19 12:38] LABS: PSA,Total- Diagnostic 9.29 ng/mL (0.0-4.0)
[2024-10-26 12:10] LABS: Testosterone, Total 437 ng/dL (264-916)
== END | disposition home or self-care (01) ==
LOC: BIMLAB 08:37
PROVIDERS: PCP Internal Medicine; Visit Provider Internal Medicine
DX: R53.83 Other fatigue (principal); R97.20 Elevated prostate specific antigen [PSA]; E55.9 Vitamin D deficiency, unspecified
CPT/HCPCS: 36415; 82306; 82607; 84153; 84402; 84403

== ENCOUNTER → 2024-11-01 | Outpatient (CLI) | payer MEDICARE, SELFPAY ==
[2024-11-03 12:09] LABS: PSA, Free 1.87 ng/mL; PSA, Free % 34.8 % (.)
== END | disposition home or self-care (01) ==
LOC: LAB 15:19
PROVIDERS: PCP Internal Medicine; Referring Provider Urology; Visit Provider Urology
DX: N40.1 Benign prostatic hyperplasia with lower urinary tract symptoms (principal)
CPT/HCPCS: 36415; 84153; 84154

== ENCOUNTER → 2024-12-03 | Outpatient (CLI) | payer MEDICARE, SELFPAY ==
[2024-12-03 14:03] LABS: Vitamin D,25 Hydroxy 52.1 ng/mL
== END | disposition home or self-care (01) ==
LOC: LAB 12:20
PROVIDERS: PCP Internal Medicine; Referring Provider Internal Medicine; Visit Provider Internal Medicine
DX: E55.9 Vitamin D deficiency, unspecified (principal)
CPT/HCPCS: 36415; 82306

== ENCOUNTER → 2025-01-25 | Outpatient (CLI) | payer MEDICARE, SELFPAY ==
[2025-01-26 02:41] LABS: PSA,Total- Diagnostic 5.52 ng/mL (0.00-4.00)
== END | disposition home or self-care (01) ==
PROVIDERS: PCP Internal Medicine; Referring Provider Urology; Visit Provider Urology
DX: R97.20 Elevated prostate specific antigen [PSA] (principal)
CPT/HCPCS: 36415; 84153

== ENCOUNTER → 2025-04-21 | Outpatient (CLI) | payer MEDICARE, SELFPAY ==
[2025-04-21 12:59] LABS: Amphetamine Urine NEGATIVE (<1000 ng/mL); Barbiturate Urine NEGATIVE (< 200 ng/mL); Benzodiazepine Urine NEGATIVE (< 200 ng/mL); Buprenorphine Urine NEGATIVE (< 200 ng/mL); Cocaine Urine NEGATIVE (< 300 ng/mL); Fentanyl, Urine NEGATIVE; Methadone Urine NEGATIVE (< 300 ng/mL); Opiates Urine NEGATIVE (< 300 ng/mL); Oxycodone, Urine NEGATIVE (< 100 ng/mL); PCP Urine NEGATIVE (< 25 ng/mL); THC Urine NEGATIVE (< 50 ng/mL)
== END | disposition home or self-care (01) ==
LOC: MTLAB 10:42
PROVIDERS: PCP Internal Medicine; Referring Provider Anesthesiology Pain Medicine; Visit Provider Anesthesiology Pain Medicine
DX: Z79.899 Other long term (current) drug therapy (principal); Z79.891 Long term (current) use of opiate analgesic
CPT/HCPCS: 36415; 80307

== ENCOUNTER → 2025-07-25 | Outpatient (CLI) | payer MEDICARE, SELFPAY ==
--- NOTE | 2025-07-25 09:00 | RAD_ITS ---
PROCEDURE: CERV SPINE OBL/FLEX/EXT COMP 07/25/2025 REASON FOR EXAM: CERVICAL PAIN TECHNIQUE: CERV SPINE OBL/FLEX/EXT COMP COMPARISON: None FINDINGS: Vertebrae: Vertebral heights are well-maintained. disc spaces: Disc space narrowing and spondylosis at the C5-C6 and C6-C7 levels. Alignment: Minimal anterior listhesis of C5 on C6 on neutral positioning. This is stable on the extension views. Minimal anterior listhesis on the flexion views. soft tissues: No prevertebral soft tissue swelling. Other: Facet joint osteoarthritis. RAD/Cerv Spine Obl/Flex/Ext Comp IMPRESSION: Disc space narrowing and spondylosis at the C5-C6 and C6-C7 levels. Minimal anterior listhesis of C5 on C6 which is more pronounced on the flexion views. Disclaimer: Reading Location: [id number]
== END | disposition home or self-care (01) ==
LOC: MTRAD 08:53
PROVIDERS: PCP Internal Medicine; Referring Provider Clinical Nurse Specialist Adult Health; Visit Provider Clinical Nurse Specialist Adult Health
DX: M54.2 Cervicalgia (principal)
CPT/HCPCS: 72052

== ENCOUNTER → 2025-10-21 | Outpatient (CLI) | payer MEDICARE, SELFPAY ==
[2025-10-21 10:20] LABS: Hematocrit 43.2 % (40-54); Hemoglobin 14.2 g/dL (13.0-16.5); Mean Corp Hgb Conc 32.9 g/dL (32-36); Mean Corpuscular Volume 90.0 fL (80-94); Mean Platelet Vol. 9.2 fl (6.2-12.0); Platelet Count 275 K/mm3 (150-450); RBC Distribution Width CV 13.6 % (11.6-14.6); RBC Distribution Width SD 44.6 fl (35.1-43.9); Red Blood Count 4.80 M/mm3 (4.6-6.2); White Blood Count 8.8 K/mm3 (4.4-11.0)
[2025-10-21 11:04] LABS: AST(SGOT) 19 U/L (<=37); Alanine Aminotransfer ALT/SGPT 18 U/L (<=46); Albumin, Serum 4.2 g/dL (3.4-4.8); Alkaline Phosphatase 113 U/L (40-129); Anion Gap 13 (5-15); BUN 24 mg/dL (4-19); BUN/Creat Ratio 17.0 RATIO (10-20); Calcium,Total 9.9 mg/dL (7.6-11.0); Carbon Dioxide 25.8 mmol/L (21.0-32.0); Chloride 100 mmol/L (98-108); Cholesterol 266 mg/dL (<=200); Globulin 3.3 g/dL (2.2-4.2); Glucose 104 mg/dL (70-99); Low Density Lipoprotein Calc. 190 mg/dL; Potassium 4.1 mmol/L (3.3-5.1); Pro- Brain NATRIURETIC PEPTIDE 570 pg/mL (<=900); Triglycerides 186 mg/dL; Very Low Density Lipoprotein 37 mg/dL (5-40); cholesterol:hdl ratio screen 6.54
== END | disposition home or self-care (01) ==
LOC: LAB 09:27
PROVIDERS: PCP Internal Medicine; Referring Provider Physician Assistant Medical; Visit Provider Physician Assistant Medical
DX: I25.10 Atherosclerotic heart disease of native coronary artery without angina pectoris (principal); R53.82 Chronic fatigue, unspecified; R06.02 Shortness of breath
CPT/HCPCS: 36415; 80053; 80061; 83880; 85027

== ENCOUNTER → 2025-11-16 | Outpatient (CLI) | payer MEDICARE, SELFPAY ==
--- NOTE | 2025-11-16 06:02 | ECHOCS_ITS ---
Reason For Study Reason For Study: DONIS Procedure This was a 2D Doppler, Color Flow transthoracic echocardiogram. The patient is in an irregular rhythm. The study was technically difficult. Contrast injection was performed. Exam performed in department. Left Ventricle Normal LV size. Left ventricular systolic function is normal. The left ventricular ejection fraction is 60 %. No regional wall motion abnormalities noted. Right Ventricle Normal RV size. Normal systolic function. Atria The left atrium is moderately enlarged. The right atrium is mildly enlarged. Tricuspid Valve Normal tricuspid valve. Mild-Moderate (1-2+) tricuspid valve insufficiency. Pulmonary artery systolic pressure is 31 mmHg. Pulmonic Valve Normal pulmonic valve. Great Vessels Normal sized aortic root. The pulmonary artery is normal size. Inferior vena cava collapse with respiration. Pericardium/Pleural No pericardial effusion. Medication 22 gauge I.V. with prn adaptor inserted into right arm. Diluted definity 1.5ml given slow IV push to enhance endocardial definition. MMode/2D Measurements & Calculations LVIDd: 5.6 cm IVSd: 0.82 cm Ao root diam: 3.3 cm LVIDs: 3.8 cm LVPWd: 0.86 cm FS: 31.8 % LAV(MOD-bp): 68.6 ml LVAd ap4: 23.7 cm2 SV(MOD-sp4): 37.9 ml LAV(MOD-bp) Indexed: 33.6 ml/m2 LVLd ap4: 6.8 cm SI(MOD-sp4): 18.6 ml/m2 LAV(MOD-sp2): 60.7 ml EDV(MOD-sp4): 65.4 ml LAV(MOD-sp4): 70.2 ml EDV(sp4-el): 70.7 ml LVAs ap4: 13.5 cm2 LVLs ap4: 5.4 cm ESV(MOD-sp4): 27.5 ml ESV(sp4-el): 28.8 ml EF(MOD-sp4): 57.9 % EF(sp4-el): 59.3 % SV(sp4-el): 41.9 ml LA dimension(2D): 4.9 cm LA A4 area: 24.7 cm2 RA A4 area: 22.4 cm2 Doppler Measurements & Calculations MV E max odell: 86.9 cm/sec MV V2 max: 90.2 cm/sec Ao V2 max: 124.5 cm/sec MV max P.3 mmHg Ao max P.2 mmHg MV V2 mean: 43.6 cm/sec Ao V2 mean: 86.7 cm/sec MV mean P.99 mmHg Ao mean P.4 mmHg MV V2 VTI: 12.7 cm Ao V2 VTI: 24.0 cm AV (velocity ratio): 0.76 LV V1 max: 93.1 cm/sec PA V2 max: 91.8 cm/sec TR max odell: 263.4 cm/sec LV V1 max P.5 mmHg TR max P.8 mmHg LV V1 mean P.9 mmHg LV V1 mean: 64.3 cm/sec LV V1 VTI: 18.3 cm ECHO/Echo Complete W/ Contrast Interpretation Summary Normal LV size. Left ventricular systolic function is normal. The left ventricular ejection fraction is 60 %. Contrast injection was performed. Ordering Physician: Breann Hwang Referring Physician: Breann Hwang Performed By: Faustino Wallace RCS
--- OUTSIDE RECORDS SUMMARY | 2025-11-16 06:05 | XMS RPT_ITS | CCD ---
Author Organization [facility] Care Team Providers Care Recyclable Materials Collector Name Role Phone Carol RN, Sandrine A Unavailable Unavailable Jimis, Neli Y Unavailable Unavailable TATE BANSAL (OIL WELL SERVICES SUPERINTENDENT) Unavailable Unavailroni Medina RN, Sandrine A Unavailable Unavailable Carol RN, Sandrine A Unavailable Unavailable Carol RN, Sandrine A Unavailable Unavailable Carol RN, Sandrine A Unavailable Unavailable Jose RN, Breann Soliz Unavailable Ailyn OIL WELL SERVICES SUPERINTENDENT, OIL WELL SERVICES SUPERINTENDENT-C Mj Primary Care Provider Dr. Fernando Pratt Attending Provider Dr. Fernando Pratt Referring Provider Dr. Fernando Pratt Other Provider Neto Box DO Primary Care Provider Ailyn OIL WELL SERVICES SUPERINTENDENT, OIL WELL SERVICES SUPERINTENDENT-C Mj Primary Care Provider Ailyn FONG, OIL WELL SERVICES SUPERINTENDENT-C Mj Referring Provider Yuriy FONG, OIL WELL SERVICES SUPERINTENDENT-C Francesca Attending Provider Ailyn OIL WELL SERVICES SUPERINTENDENT, OIL WELL SERVICES SUPERINTENDENT-C Mj Referring Provider Yuriy FONG, OIL WELL SERVICES SUPERINTENDENT-C Francesca Attending Provider Dr. Neto Goldsmith Primary Care Provider Chencho HANEY, Dr. Ta Primary Care Provider Dr. Cely Paiz MD Attending Provider Chencho HANEY, Dr. Ta Referring Provider Viola HANEY, Dr. Serafin Morfin Attending Provider Viola HANEY, Dr. Serafin Morfin Referring Provider [phone] Chencho HANEY, Dr. Ta Primary Care Provider [phone] Viola HANEY, Dr. Serafin Morfin Attending Provider [phone] Viola HANEY, Dr. Serafin Morfin Referring Provider Chencho HANEY, Dr. Ta Attending Provider Chencho HANEY, Dr. Ta Referring Provider Vladimir HANEY, Dr. Diana Attending Provider Vladimir HANEY, Dr. Diana Referring Provider [phone] Chencho HANEY, Dr. Ta Primary Care Provider [phone] HETAL Green. Khushboo Attending Provider [phone] HETAL Green. Khushboo Referring Provider Lebron Gilbert Attending Unavailable Lebron Gilbert Referring Unavailable Forsyth, Cely Primary Care Unavailable Forsyth, Cely Attending Unavailable Chencho, Cely Referring Unavailable Forsyth, Cely Primary Care Unavailable Chencho, Cely Attending Unavailable Forsyth, Cely Referring Unavailable Chencho, Cely Primary Care Unavailable Forsyth, Cely Primary Care Unavailable Forsyth, Cely Attending Unavailable Chencho, Cely Referring Unavailable ViolaSerafin Referring Unavailable Forsyth, Cely Primary Care Unavailable ViolaSerafin Attending Unavailable Forsyth, Cely Attending Unavailable Forsyth, Cely Primary Care Unavailable Forsyth, Cely Primary Care Unavailable ViolaSerafin Attending Unavailable ViolaSerafin Referring Unavailable Forsyth, Cely Attending Unavailable Forsyth, Cely Referring Unavailable Chencho, Cely Primary Care Unavailable Forsyth, Cely Primary Care Unavailable Khushboo Green Attending Unavailable Khushboo Green Referring Unavailable Allergies Allergy Classification Reported Allergen(s) Allergy Type Date of Onset Reaction(s) Facility (7 sources) atorvastatin drug allergy 1 Muscle aches [facility] Work Phone: (7 sources) fenofibrate; Translations: [TRICOR] food allergy 1 Muscle aches [facility] Work Phone: (7 sources) pravastatin drug allergy 1 Muscle aches [facility] Work Phone: (7 sources) rosuvastatin drug allergy 1 Muscle aches [facility] Work Phone: (7 sources) simvastatin drug allergy 1 Muscle aches [facility] Work Phone: (10 sources) atorvastatin; Translations: [atorvastatin calcium] Drug Allergy 2 Unknown [facility] (10 sources) Fenofibrate; Translations: [fenofibrate,kerry ronized] Drug Allergy 2 Unknown [facility] (10 sources) Pravastatin; Translations: [pravastatin sodium] Drug Allergy 2 Unknown [facility] (10 sources) rosuvastatin; Translations: [rosuvastatin calcium] Drug Allergy 2 Unknown [facility] (9 sources) Simvastatin Drug Allergy 2 [facility] (10 sources) fenofibrate nanocrystallized ; Translations: [fenofibrate nanocrystallized ] Allergy to substance 2 Unknown [facility] (1 source) HMG-CoA reductase inhibitor Propensity to adverse reactions to drug 6 [facility] (1 source) Simvastatin Drug Allergy 5 [facility] Repository Medications Current Medications Medication Drug Class(es) Dates Sig (Normalized) Sig (Original) acetaminophen 500 mg oral tablet (9 sources) Start: 12-24-2018 take 2 tablets by mouth every eight hours as needed for pain Acetaminophen 500 MG tablet Active 1000 mg PO EVERY 8 HOURS NEEDED as needed for pain. fever. 0 December 24, 2018 1:00am Start: 12-24-2018 take 1000 mg by mout h every eight hours as needed Acetaminophen Active 1000 MG PO EVERY 8 HOURS NEEDED December 24, 2018 1:00am apixaban 5 mg oral tablet (20 sources) Factor Xa Inhibitor Start: 12-11-2021 End: 06-23-2025 take 1 tablet by mouth twice daily Apixaban (Eliquis) 5 mg tablet Active 5 mg PO TWICE A DAY 60 June 23, 2025 12:48pm 24 hr dilTIAZem hydrochloride 180 mg extended release oral capsule (6 sources) Calcium Channel Eusebio Start: 02-26-2024 End: 02-04-2025 take 1 capsule by mouth once daily Diltiazem Hcl 180 mg capsule,extended release 24hr Active 180 mg PO DAILY 90 February 04, 2025 12:43pm gabapentin 300 mg oral capsule (20 sources) Anti-epileptic Agent Start: 12-25-2023 End: 07-26-2025 take 2 capsules by mouth three times daily Gabapentin 300 mg capsule Active 600 mg PO THREE TIMES A DAY 180 0 July 26, 2025 1:35pm leg pain/sleep Start: 12-21-2018 End: 12-25-2023 take 1 capsule by mouth at bedtime Gabapentin 300 MG capsule Discontinued 300 mg PO AT BEDTIME December 21, 2018 1:00am December 25, 2023 10:50am leg pain/sleep hydroCHLOROthiazide 25 mg / losartan potassium 100 mg oral tablet (20 sources) Thiazide Diuretic, Angiotensin 2 Receptor Eusebio Start: 11-18-2017 End: 06-16-2023 take 1 tablet by mouth once daily Losartan-Hydrochlorothiazide Active 1 TABLET PO daily June 16, 2023 2:46pm Start: 09-28-2014 End: 06-27-2025 Losartan-Hydrochlorothiazide 100-25 mg tablet Active 1 {tbl} PO daily 90 June 27, 2025 8:40am Start: 08-30-2014 End: 11-18-2017 Losartan-Hydrochlorothiazide 1 EACH tablet Discontinued 1 {tbl} PO DAILY August 30, 2014 12:00am November 18, 2017 10:11am Start: 08-30-2014 End: 11-18-2017 take 1 tablet by mouth once daily Losartan-Hydrochlorothiazide Discontinue d 1 TABLET PO DAILY August 30, 2014 12:00am November 18, 2017 10:11am 24 hr metoprolol succinate 100 mg extended release oral tablet (20 sources) beta-Adrenergic Eusebio Start: 12-20-2021 End: 06-27-2025 take 1 tablet by mouth twice daily Metoprolol Succinate 100 mg tablet extended release 24 hr Active 100 mg PO TWICE A DAY 180 June 27, 2025 8:38am Start: 08-30-2014 End: 05-19-2018 take 1 tablet by mouth once daily Metoprolol Tartrate 50 MG tablet Discontinued 50 mg PO DAILY August 30, 2014 12:00am May 19, 2018 5:29pm Start: 02-18-2011 End: 12-20-2021 take 1 tablet by mouth once daily Metoprolol Succinate 100 mg tablet extended release 24 hr Discontinued 100 mg PO daily 90 March 20, 2021 4:47pm December 20, 2021 10:28am Start: 02-18-2011 End: 09-20-2014 take 1 tablet by mouth once daily TOPROL XL 50 MG [id number] (ER) One tablet by mouth daily METOPROLOL SUCCINATE [id number] Brooke Bolivar RN Start: 02-18-2011 take 1 tablet by trudy th once daily TOPROL XL 100 MG [id number] One tablet by mouth daily METOPROLOL SUCCINATE [id number] Fernando Pratt MD Start: 02-18-2011 take 1 tablet by trudy th once daily TOPROL XL 100 MG [id number] One tablet by mouth daily METOPROLOL SUCCINATE [id number] Fernando Pratt MD Start: 02-18-2011 take 1 tablet by trudy th once daily TOPROL XL 50 MG [id number] (ER) One tablet by mouth daily METOPROLOL SUCCINATE [id number] Fernando Pratt MD Start: 02-18-2011 End: 09-20-2014 take 1 tablet by mouth once daily TOPROL XL 50 MG [id number] (ER) One tablet by mouth daily METOPROLOL SUCCINATE [id number] Brooke Bolivar RN Completed/Discontinued Medications Medication Drug Class(es) Dates Sig (Normalized) Sig (Original) acetaminophen 325 mg / HYDROcodone bitartrate 5 mg oral tablet (9 sources) Opioid Agonist Start: 06-01-2017 End: 11-18-2017 Hydrocodone-Acetami nophen 1 TABLET tablet Discontinued 1 - 2 {tbl} PO EVERY 4 HOURS NEEDED as needed for Pain 10 June 01, 2017 12:00am November 18, 2017 10:11am Start: 06-01-2017 End: 11-18-2017 take 1 tablet by mouth every four hours as needed Hydrocodone-Acetaminophen Discontinued 1 - 2 TABLET PO EVERY 4 HOURS NEEDED June 01, 2017 12:00am November 18, 2017 10:11am amLODIPine 5 mg oral tablet (20 sources) Dihydropyridine Calcium Channel Eusebio Start: 12-20-2021 End: 12-24-2023 take 1 tablet by mouth at bedtime Amlodipine 5 mg tablet Discontinued 5 mg PO BEDTIME 90 3 June 16, 2023 2:46pm December 24, 2023 9:33am aspirin 81 mg oral tablet (7 sources) Platelet Aggregation Inhibitor, Nonsteroidal Anti-inflammatory Drug Start: 11-15-2013 take 1 tablet by mouth once daily ASPIRIN 81 MG TABS One tablet by mouth daily ASPIRIN [id number] Sandrine Medina RN Start: 11-15-2013 take 1 tablet by trudy th once daily ASPIRIN 81 MG TABS One tablet by mouth daily ASPIRIN [id number] Sandrine Medina RN atorvastatin 40 mg oral tablet (12 sources) HMG-CoA Reductase Inhibitor Start: 09-28-2014 End: 05-08-2017 ATORVASTATIN CALCIUM 40 MG TABS on hold ATORVASTATIN CALCIUM [id number] Fernando Pratt MD cholecalciferol 1.25 mg oral capsule (6 sources) Vitamin D Start: 10-19-2024 End: 03-29-2025 take 1 capsule by mouth every week Cholecalciferol (Vitamin D3) 1,250 mcg (50,000 unit) capsule Discontinued 1250 ug PO EVERY WEEK 12 0 December 31, 2024 6:23pm March 29, 2025 1:02pm clopidogrel 75 mg oral tablet (20 sources) [id number] Platelet Inhibitor Start: 02-18-2011 End: 02-24-2025 take 1 tablet by mouth once daily Clopidogrel 75 mg tablet Discontinued 75 mg PO DAILY 90 3 March 03, 2024 12:39pm February 24, 2025 3:21pm colesevelam hydrochloride 625 mg oral tablet (20 sources) Bile Acid Sequestrant Start: 06-21-2016 End: 06-21-2017 take 3 tablets by mouth twice daily at mealtime colesevelam (WELCHOL) 625 mg tablet Indications: Pure hypercholesterolemia Take 3 tablets (1,875 mg total) by mouth 2 (two) times a day with meals. 180 tablet 11 06/21/2016 06/21/2017 Start: 04-26-2014 End: 05-08-2017 take 2 tablets by mouth twice daily WELCHOL 625 MG TABS Two tablets by mouth twice daily COLESEVELAM HCL [id number] Fernando Pratt MD Start: 02-18-2011 End: 10-21-2013 take 2 tablets by mouth three times daily WELCHOL 625 MG TABS Two tablets by mouth three times daily COLESEVELAM HCL [id number] Fernando Pratt MD digoxin 0.25 mg oral tablet (20 sources) Cardiac Glycoside Start: 02-18-2011 End: 02-26-2024 take 1 tablet by mouth once daily Digoxin 250 mcg (0.25 mg) tablet Discontinued 250 ug PO DAILY 90 3 June 16, 2023 2:46pm February 26, 2024 10:41am DULoxetine 30 mg delayed release oral capsule (3 sources) Serotonin and Norepinephrine Reuptake Inhibitor Start: 09-22-2024 End: 10-19-2024 take 1 capsule by mouth once daily Duloxetine (Cymbalta) 30 mg capsule,delayed release(DR/EC) Discontinued 30 mg PO daily 30 0 September 22, 2024 12:00am October 19, 2024 8:40am 0.8 ml enoxaparin sodium 100 mg/ml prefilled syringe (14 sources) Low Molecular Weight Heparin Start: 11-15-2013 End: 04-26-2014 LOVENOX 80 MG/0.8ML SOLN inject subcutaneiously twice daily: last dose Sun night 11/22/13 ENOXAPARIN SODIUM [id number] Fernando Pratt MD Start: 11-15-2013 End: 04-26-2014 LOVENOX 80 MG/0.8ML SOLN inj ect subcutaneiously twice daily: last dose Sun night 11/22/13 ENOXAPARIN SODIUM [id number] Fernando Pratt MD Start: 11-15-2013 LOVENOX 80 MG/ 0.8ML SOLN inject subcutaneiously twice daily: last dose Sun night 11/22/13 ENOXAPARIN SODIUM [id number] Matt Kilpatrick MD ezetimibe 10 mg oral tablet (12 sources) Dietary Cholesterol Absorption Inhibitor Start: 09-01-2023 End: 12-24-2023 take 1 tablet by mouth once daily Ezetimibe (Zetia) 10 mg tablet Discontinued 10 mg PO DAILY 30 September 01, 2023 12:00am December 24, 2023 9:33am Start: 05-08-2017 End: 05-13-2017 ZETIA 10 MG TABS HOLD until pt gets new insurance EZETIMIBE [id number] Sandrine Medina RN ezetimibe 10 mg / simvastatin 10 mg oral tablet (1 source) HMG-CoA Reductase Inhibitor, Dietary Cholesterol Absorption Inhibitor Start: 05-13-2017 take 1 tablet by mouth once daily VYTORIN 10-10 MG TABS One tablet by mouth daily EZETIMIBE-SIMVASTATIN [id number] Fernando Pratt MD gemfibrozil 600 mg oral tablet (14 sources) Peroxisome Proliferator Receptor alpha Agonist Start: 02-18-2011 End: 03-11-2012 take 1 tablet by mouth twice daily LOPID 600 MG TABS One tablet by mouth twice daily GEMFIBROZIL [id number] Cee Rincon glimepiride 1 mg oral tablet (15 sources) Sulfonylurea Start: 08-07-2023 End: 02-10-2025 take 1 tablet by mouth once daily Glimepiride 1 mg tablet Discontinued 1 mg PO DAILY 90 October 21, 2024 10:20am February 10, 2025 12:34pm icosapent ethyl 1000 mg oral capsule (4 sources) Start: 09-01-2023 End: 12-24-2023 Icosapent Ethyl (Vascepa) 1 gram capsule Discontinued 2 g PO TWICE A DAY 120 September 01, 2023 12:00am December 24, 2023 9:33am Isosorbide (20 sources) Nitrate Vasodilator Start: 11-12-2013 End: 11-25-2013 take 1 tablet by mouth once daily IMDUR 30 MG [id number] One tablet by mouth daily ISOSORBIDE MONONITRATE [id number] Sandrine Medina RN Start: 11-12-2013 take 1 tablet by trudy once daily IMDUR 30 MG [id number] One tablet by mouth daily ISOSORBIDE MONONITRATE [id number] Breann Hwang PA-C Start: 02-18-2011 End: 05-08-2017 take 1 tablet by mouth once daily ISOSORBIDE MONONITRATE ER 30 MG [id number] One tablet by mouth daily ISOSORBIDE MONONITRATE [id number] Fernando Pratt MD nitroglycerin 0.4 mg sublingual tablet (7 sources) Nitrate Vasodilator Start: 11-12-2013 NITROSTAT 0.4 MG SUBL 1 tablet under tongue every 5 min up to 3 X NITROGLYCERIN [id number] Breann Hwang PA-C olmesartan medoxomil 20 mg oral tablet (14 sources) Angiotensin 2 Receptor Eusebio Start: 08-30-2011 End: 09-28-2014 take 1 tablet by mouth once daily BENICAR 20 MG TABS 1 tablet by mouth daily OLMESARTAN MEDOXOMIL [id number] Fernando Pratt MD omega-3 acid ethyl esters (detention) 1000 mg oral capsule (20 sources) Start: 10-21-2013 End: 09-28-2014 take 1 capsule by mouth once daily LOVAZA 1 GM CAPS One capsule by mouth 3X daily [id number] ETHYL ESTERS [id number] Breann Hwang PA-C Start: 10-21-2013 End: 09-28-2014 take 1 capsule by mouth once daily LOVAZA 1 GM CAPS One capsule by mouth 3X daily [id number]-8-[id number] ETHYL ESTERS [id number] Fernando Pratt MD Start: 10-21-2013 take 1 capsule by mo [facility] once daily LOVAZA 1 GM CAPS One capsule by mouth 3X daily [id number] ETHYL ESTERS [id number] Breann Hwang PA-C Start: 03-11-2012 End: 03-09-2013 LOVAZA 1 GM CAPS (1000Mg) 2 tablest by mouth twice daily [id number]-6-[id number] ETHYL ESTERS [id number] Fernando Pratt MD Start: 03-11-2012 End: 03-09-2013 LOVAZA 1 GM CAPS (1000Mg) 2 tablest by mouth twice daily [id number] ETHYL ESTERS [id number] Fernando Pratt MD Start: 03-11-2012 LOVAZA 1 GM CA PS (1000Mg) 2 tablest by mouth twice daily UKOEX-8-XOAE ETHYL ESTERS [id number] Asuncion Liang RN oxyCODONE hydrochloride 5 mg oral tablet (9 sources) Opioid Agonist Start: 12-24-2018 End: 12-27-2018 take 1 tablet by mouth every six hours as needed for pain Oxycodone 5 MG tablet Discontinued 5 mg PO EVERY 6 HOURS as needed for Severe Pain (-09/09) 12 3 0 December 24, 2018 1:00am December 26, 2018 1:00am December 27, 2018 1:11am Orchitis and epididymitis Epididymo-orchitis psyllium 400 mg oral capsule (9 sources) Start: 12-21-2018 End: 12-11-2021 Psyllium Husk 0.4 GM capsule Discontinued 0.4 g PO DAILY December 21, 2018 1:00am December 11, 2021 10:09am constipation sulfamethoxazole 800 mg / trimethoprim 160 mg oral tablet (9 sources) Dihydrofolate Reductase Inhibitor Antibacterial, Sulfonamide Antimicrobial Start: 12-24-2018 End: 12-11-2021 Sulfamethoxazole-Trime thoprim 1 TABLET tablet Discontinued 1 {tbl} PO TWICE A DAY December 24, 2018 1:00am December 11, 2021 10:10am Start: 12-24-2018 End: 12-11-2021 take 1 tablet by mouth twice daily Sulfamethoxazole-Trimethoprim Discontinu ed 1 TABLET PO TWICE A DAY December 24, 2018 1:00am December 11, 2021 10:10am traMADol hydrochloride 50 mg oral tablet (20 sources) Opioid Agonist Start: 12-11-2021 End: 05-05-2024 take 1 tablet by mouth every six hours as needed for pain Tramadol 50 mg tablet Discontinued 50 mg PO EVERY 6 HOURS as needed for pain 120 30 0 April 05, 2024 11:20am May 04, 2024 12:00am May 05, 2024 12:04am Chronic pain Other chronic pain Start: 02-18-2011 take 2 tablets by mo uth four times daily TRAMADOL HCL 50 MG TABS Two tablets by mouth four times daily TRAMADOL HCL [id number] Cee Rincon Start: 02-18-2011 End: 03-09-2013 ULTRAM 50 MG TABS 1-2 tablet s daily TRAMADOL HCL [id number] Fernando Pratt MD warfarin sodium 5 mg oral tablet (20 sources) Vitamin K Antagonist Start: 02-18-2011 End: 12-11-2021 take 1 tablet by mouth once daily Warfarin 5 MG tablet Discontinued 5 mg PO DAILY 90 November 06, 2017 3:44pm December 11, 2021 10:10am Problems Active Problems Problem Classification Problem Date Documented Da te Episodic/Chronic Administrative/social admission (10 sources) Patient encounter status; Translations: [Encounter for examination for driving license] 04-23-2022 Episodic Blindness and vision defects (4 sources) Eye / vision finding; Translations: [Unspecified visual disturbance] 07-31-2023 Episodic Cardiac dysrhythmias (20 sources) Atrial fibrillation; Translations: [Paroxysmal atrial fibrillation] Onset: 02-18-2011 02-18-2011 Chronic Coronary atherosclerosis and other heart disease (20 sources) Coronary arteriosclerosis; Translations: [Angina decubitus] Onset: 01-01-2009 02-18-2011 Chronic Comment on above: UUY-PPA-Pmum and Mid LAD w/ 3.0 x 28 mm and 3.0 x 12 mm Promus 01/2009; Cutting Balloon Angioplasty HNP-XIR-Hlj-LAD w/ 2.5 x 38 mm and 3.0 x 12 mm Promus Element and POBA-D1 11/22/13 Diabetes mellitus without complication (5 sources) Type 2 diabetes mellitus; Translations: [Type 2 diabetes mellitus without complications] 06-25-2024 Chronic Disorders of lipid metabolism (20 sources) Hyperlipidemia; Translations: [Hyperlipidemia, unspecified] Onset: 02-18-2011 02-18-2011 Chronic Essential hypertension (15 sources) Essential hypertension; Translations: [Essential (primary) hypertension] 06-21-2016 Chronic Headache; including migraine (1 source) Migraine; Translations: [Migraine, unspecified, not intractable, without status migrainosus] 06-21-2016 Chronic Hyperplasia of prostate (1 source) Benign prostatic hyperplasia with lower urinary tract symptoms; Translations: [Benign prostatic hyperplasia with lower urinary tract symptoms] Onset: 12-02-2024 Chronic Nausea and vomiting (4 sources) Nausea; Translations: [Nausea] 07-31-2023 Episodic Nutritional deficiencies (2 sources) Vitamin D deficiency; Translations: [Vitamin D deficiency, unspecified] Onset: 12-29-2024 03-29-2025 Chronic Other nervous system disorders (2 sources) Chronic pain; Translations: [Other chronic pain] 10-19-2024 Chronic Other nervous system disorders (1 source) Other chronic pain; Translations: [Other chronic pain] Onset: 03-29-2025 Chronic Other nutritional; endocrine; and metabolic disorders (5 sources) Body mass index (BMI) 34.0-34.9, adult; Translations: [Body mass index (BMI) 34.0-34.9, adult] Onset: 04-26-2014 04-26-2014 Chronic Other nutritional; endocrine; and metabolic disorders (3 sources) Obesity; Translations: [Obesity, unspecified] 06-25-2024 Chronic Other nutritional; endocrine; and metabolic disorders (2 sources) Body mass index 30+ - obesity; Translations: [Obesity, unspecified] 10-19-2024 Chronic Other nutritional; endocrine; and metabolic disorders (4 sources) Decrease in appetite; Translations: [Anorexia] 07-31-2023 Episodic Peripheral and visceral atherosclerosis (7 sources) Intermittent claudication; Translations: [Peripheral vascular disease, unspecified] Onset: 06-08-2013 06-08-2013 Chronic Residual codes; unclassified (4 sources) Emotional state finding; Translations: [Nervousness] 07-31-2023 Episodic Residual codes; unclassified (1 source) Chronic pain Episodic Spondylosis; intervertebral disc disorders; other back problems (1 source) Cervicalgia; Translations: [Cervicalgia] Onset: 07-28-2025 Episodic Superficial injury; contusion (9 sources) Contusion of hand; Translations: [Contusion of right hand, initial encounter] 06-02-2017 Episodic Unclassified (5 sources) Long-term drug therapy; Translations: [Other fci (current) drug therapy] Onset: 02-18-2011 02-18-2011 Unclassified (2 sources) Finding of body mass index; Translations: [Body mass index (BMI) 34.0-34.9, adult] Onset: 04-26-2014 04-26-2014 Unclassified (1 source) G89.29 - Other chronic pain Past or Other Problems Problem Classification Problem Date Documented Date Episodic/Chronic Coronary atherosclerosis and other heart disease (10 sources) Coronary angioplasty status; Translations: [Presence of coronary angioplasty implant and graft] Onset: 1 02-18-2011 Episodic Malaise and fatigue (7 sources) Fatigue; Translations: [Other fatigue] Onset: 4 08-07-2023 Episodic Nonspecific chest pain (7 sources) Chest discomfort; Translations: [Other chest pain] Onset: 3 11-12-2013 Episodic Other aftercare (3 sources) Other fci (current) drug therapy; Translations: [Other [employer] (current) drug therapy] Onset: 1 02-18-2011 Episodic Other screening for suspected conditions (not mental disorders or infectious disease) (5 sources) Electrocardiogram abnormal; Translations: [Abnormal electrocardiogram [ECG] [EKG]] Onset: 7 05-09-2017 Episodic Other screening for suspected conditions (not mental disorders or infectious disease) (3 sources) Raised prostate specific antigen; Translations: [Elevated prostate specific antigen [PSA]] Onset: 5 10-19-2024 Episodic Results Test Name Value Interpretation Reference Range Facility Cerv Spine Obl/Flex/Ext Comp on 07-25-2025 Cerv Spine Obl/Flex/Ext Comp [facility] [address] [place] [address] [id number] Cerv Spine Obl/Flex/Ext Comp MR#: [id number] Acct: [id number] Name: MG DIAZ II Rep #: [id number] : 1960 M 65 From: Saleem charles MD PCP: Dr. Cely Paiz MD Status: REG CLI Study: Cerv Spine Obl/Flex/Ext Comp Date of Exam: Exam# [id number] Ordering Dr: Khushboo Green PROCEDURE: CERV SPINE OBL/FLEX/EXT COMP 07/25/2025 REASON FOR EXAM: CERVICAL PAIN TECHNIQUE: CERV SPINE OBL/FLEX/EXT COMP COMPARISON: None FINDINGS: Vertebrae: Vertebral heights are well-maintained. disc spaces: Disc space narrowing and spondylosis at the C5-C6 and C6-C7 levels. Alignment: Minimal anterior listhesis of C5 on C6 on neutral positioning. This is stable on the extension views. Minimal anterior listhesis on the flexion views. soft tissues: No prevertebral soft tissue swelling. Other: Facet joint osteoarthritis. RAD/Cerv Spine Obl/Flex/Ext Comp IMPRESSION: Disc space narrowing and spondylosis at the C5-C6 and C6-C7 levels. Minimal anterior listhesis of C5 on C6 which is more pronounced on the flexion views. Disclaimer: Reading Location: [place] CC: Khushboo Green; Dr. Cely Paiz MD Home Energy Consultant Supervisor: Signed Normal [facility] Amphetamine detection with 1 000 ng/mL as cutoffOrdered By: Lebron Gilbert on 04-21-2025 Amphetamines Screen method >1000 ng/mL Ql (U) Negative < 200 ng/mL [facility] No Panel InformationOrdered By: Lebron Gilbert on 04-21-2025 Urine Buprenorphine Qualitative Negative < 200 ng/mL [facility] Urine Oxycodone Screen Negative < 100 ng/mL [facility] Quantitative urine opiates m easurementOrdered By: Lebron Gilbert on 04-21-2025 Opiates Ql (U) Negative < 300 ng/mL [facility] Screening urine fentanyl jonah surementOrdered By: Lebron Gilbert on 04-21-2025 fentaNYL Screen Ql (U) Negative [facility] Urine Drug Screen ([facility])on 04-21-2025 AMPHETAMINES Negative Normal <1000 ng/mL [facility] Comment on above: Order Comment: N Performed By: #### L 505.5000 #### [facility] [address] [place], [address] BARBITIURATES Negative Normal < 200 ng/mL [facility] Comment on above: Order Comment: N Performed By: #### L 505.5000 #### [facility] [address] [place], [address] BENZODIAZIPINE Negative Normal < 200 ng/mL [facility] Comment on above: Order Comment: N Performed By: #### L 505.5000 #### [facility] [address] [place], [address] BUP Ur Drug Scr Negative Normal < 200 ng/mL [facility] Comment on above: Order Comment: N Performed By: #### L 505.5000 #### [facility] [address] [place], [address] COCAINE Negative Normal < 300 ng/mL [facility] Comment on above: Order Comment: N Performed By: #### L 505.5000 #### [facility] [address] [place], [address] Fentanyl Negative Normal [facility] Comment on above: Order Comment: N Performed By: #### L 505.5000 #### [facility] [address] [place], [address] METHADONE Negative Normal < 300 ng/mL [facility] Comment on above: Order Comment: N Performed By: #### L 505.5000 #### [facility] [address] [place], [address] OPIATES Negative Normal < 300 ng/mL [facility] Comment on above: Order Comment: N Performed By: #### L 505.5000 #### [facility] [address] [place], [address] OXYCODONE Negative Normal < 100 ng/mL [facility] Comment on above: Order Comment: N Performed By: #### L 505.5000 #### [facility] [address] [place], [address] PCP Negative Normal < 25 ng/mL [facility] Comment on above: Order Comment: N Performed By: #### L 505.5000 #### [facility] [address] [place], [address] THC Negative Normal < 50 ng/mL [facility] Comment on above: Order Comment: N Performed By: #### L 505.5000 #### [facility] [address] [place], [address] Urine benzodiazepine levelOr dered By: Lebron Gilbert on 04-21-2025 Benzodiazepines Ql (U) Negative < 200 ng/mL [facility] Urine cocaine levelOrdered B y: Lebron Gilbert on 04-21-2025 Cocaine Ql (U) Negative < 300 ng/mL [facility] Urine vxecs-2-dhlyygfvryjjnm abinol (THC) measurementOrdered By: Lebron Gilbert on 04-21-2025 Cannabinoids Screen Ql (U) Negative < 50 ng/mL [facility] Urine phencyclidine (PCP) de tectionOrdered By: Lebron Gilbert on 04-21-2025 Phencyclidine Ql (U) Negative < 25 ng/mL [facility] Office Vis iton 03-29-2025 Internal Medicine Office Visit [facility] [place], [place] [address] OFFICE VISIT Date of Service: 03/29/25 MR#: [id number] Acct: [id number] Name: MG DIAZ II Rep #: [id number] : 1960 Provider: Dr. Cely ye MD Age/Sex: 64/M [place] [facility] [place] Status: Signed Intake Vital Signs 10/19/24 07:41 03/29/25 13:00 Height 5 ft 6 in 5 ft 6 in Weight: 250 lb BMI 40.3 BP 140/84 H Blood Pressure Location Lt brachial Position Sitting Respiration 18 Pulse 94 Pulse Source Monitor Temp 98.2 F Temp Source Temporal Pulse Oximetry (%) 96 Oxygen Delivery Method room air Intake Visit Reasons: refill medication Chief Complaint: refill medication Is patient in pain?: Yes (9 all over and back ) Allergies atorvastatin calcium (From Lipitor) Allergy (Verified 03/29/25 13:01) Unknown fenofibrate nanocrystallized (From Tricor) Allergy (Verified 03/29/25 13:01) Unknown fenofibrate,micronized (From Tricor) Allergy (Verified 03/29/25 13:01) Unknown pravastatin sodium (From Pravachol) Allergy (Verified 03/29/25 13:01) Unknown rosuvastatin calcium (From Crestor) Allergy (Verified 03/29/25 13:01) Unknown simvastatin (From Zocor) Allergy (Verified 03/29/25 13:01) Unknown Medications ???Medication ???Instructions ???Recorded ???Confirmed ???Type acetaminophen 500 mg tablet 1,000 mg (2 x 500 mg) PO Q8H PRN 0 12/24/18 03/29/25 Rx PRN pain. fever. losartan 100 1 tab PO QDAY #90 tabs 06/23/24 Rx mg-hydrochlorothiazide 25 mg tablet metoprolol succinate 100 mg 100 mg PO BID #180 tabs 06/23/24 0 03/29/25 Rx tablet,extended release 24 hr apixaban 5 mg tablet (Eliquis) 5 mg PO BID #60 tabs 07/05/2403/02 Rx diltiazem HCl 180 mg 180 mg PO DAILY #90 caps 02/04/25 03/29/25 Rx capsule,extended release 24 hr glimepiride 1 mg tablet 1 mg PO DAILY #90 tabs 02/10/25 Rx clopidogrel 75 mg tablet 75 mg PO DAILY #90 tabs 02/24/25 0 03/29/25 Rx gabapentin 300 mg capsule 600 mg (2 x 300 mg) PO TID leg 03/29/25 Rx pain/sleep #180 caps Have you fallen in the past year?: No PFSH Medical History Carpal tunnel syndrome Paroxysmal atrial fibrillation Obesity Atherosclerosis of coronary artery of [place] heart without angina pectoris Ischemic cardiomyopathy Essential (primary) hypertension Orchitis and epididymitis Severe sepsis Hyperlipidemia Surgical History H/O cataract extraction Hx of appendectomy H/O knee surgery H/O rotator cuff surgery History of left heart catheterization (09/02/14) History of coronary artery stent placement (11/22/13) Family History Father CAD (coronary artery disease) Mother CAD (coronary artery disease) Myocardial infarction Fibromyalgia Sister Aneurysm Atrial fibrillation Fibromyalgia Other Heart disease Social History adopted: No household members: none current occupational status: employed 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 pets and animals: No Smoking Status: Never smoker Electronic Cigarette Use: not used alcohol intake: never substance use type: does not use caffeine: Yes (2) Type: carbonated beverages seatbelt use: always do you feel safe at home: Yes Questionnaire PQH-9 BMS Over the last 2 weeks, how often have you been bothered by any of the following problems? 1. Little interest or pleasure in doing things: not at all 2. Feeling down, depressed, or hopeless: not at all 3. Trouble falling or staying asleep, or sleeping too much: not at all 4. Feeling tired or having little energy: nearly every day 5. Poor appetite or overeating: not at all 6. Feeling bad about yourself - or that you are a failure or have let yourself and your family down: not at all 7. Trouble concentrating on things, such as reading the newspaper or watching television: not at all 8. Moving or speaking so slowly that other people could have noticed? - Or the opposite - being so fidgety or restless that you have been moving around a lot more than usual: not at all 9. Thoughts that you would be better off or of hurting yourself in some way: not at all Total score: 3 If you checked off any problems, how difficult have these problems made it for you to do your work, take care of things at home, or get along with other people?: somewhat difficult Source: Developed by Drs. Bradley L. RodAnali gómez, Chava Zavaleta and colleagues, with an educational ramiro from [employer]. [facility] HPI Chief Complaint: refill medication Details: MG DIAZ, is a 64 M who presents to the (more content not included)... Normal [facility] - Hematology and Cell countsOrdered By: Cely Paiz on 03-29-2025 HbA1c (Bld) [Mass fraction] 6.1 % 4.2-6.3 [facility] PSA,Total- Diagnosticon 01-02 PSA, DIAGNOSTIC 5.52 ng/mL High 0.00-4.00 [facility] Comment on above: Result Comment: This test was performed using the [employer] tPSA method. Measured values of a patient??sample can vary depending on the testing procedure used. PSA values determined on patient samples by different testing procedures cannot be used interchangeably. If there is a change in PSA assays while monitoring therapy, sequential testing should be performed to confirm baseline values. Performed By: #### L 501.9940 ####[facility] [id number] [place], [address] Diagnostic total prostate sp ecific antigen (PSA) measurementOrdered By: Serafin Rod on 01-25-2025 Prostate Specific Antigen Total 5.52 ng/mL High 0.00-4.00 [facility] Comment on above: This test was perfor med using the [employer] tPSA method. Measured values of a patient sample can vary depending on the testing procedure used. PSA values determined on patient samples by different testing procedures cannot be used interchangeably. If there is a change in PSA assays while monitoring therapy, sequential testing should be performed to confirm baseline values. 30-ZC-Jnxhtec DOrdered By: Erica Paiz on 12-03-2024 Vitamin D 25-Hydroxy 52.1 ng/mL [facility] Comment on above: Vitamin D 25(OH) Sta tus Range Deficiency <20 ng/mL (50nmol/L) Insufficiency 20 - 30 ng/mL (50 - 75 nmol/L) Sufficiency 30 - 100 ng/mL (75 - 250 nmol/L) Toxicity >100 ng/mL (>250 nmol/L) Vitamin D,25 Hydroxyon 12-03 Vitamin D 25-OH 52.1 ng/mL Normal [facility] Comment on above: Result Comment: Aileen min D 25(OH) Status Range Deficiency <20 ng/mL (50nmol/L) Insufficiency 20 - 30 ng/mL (50 - 75 nmol/L) Sufficiency 30 - 100 ng/mL (75 - 250 nmol/L) Toxicity >100 ng/mL (>250 nmol/L) Performed By: #### L 506.1000 #### [facility] [address] [place], [address] PSA Total+%Freeon 11-03-2024 PSA, FREE 1.87 ng/mL Normal N/A [facility] Comment on above: Result Comment: Roch e ECLIA methodology. Performed By: #### L 3110.0500 #### [facility] [address] [place], [address] PSA, FREE % 34.8 Normal . [facility] Comment on above: Result Comment: The table below lists the probability of prostate cancer for men with non-suspicious HILLARY results and total PSA between 4 and 10 ng/mL, by patient age (Johanna et al, GEOVANNA 1998, 279:1542). % Free PSA 50-64 yr 65-75 yr 0.00-10.00% 56% 55% 10.01-15.00% 24% 35% 15.01-20.00% 17% 23% 20.01-25.00% 10% 20% >25.00% 5% 9% Please note: Johanna et al did not make specific recommendations regarding the use of percent free PSA for any other population of men. Performed at: - [facility] [id number] Hydrogenation Operator: Rodger Dunlap PhD, Phone: [phone] Performed By: #### L 3110.0500 #### [facility] [address] [place], [address] PSA, TOTAL ULTR 5.370 ng/mL Abnormal 0.000-4.000 [facility] Comment on above: Result Comment: Roch e ECLIA methodology. According to the [place] [employer], Serum PSA should decrease and remain at undetectable levels after radical prostatectomy. The AUA defines biochemical recurrence as an initial PSA value 0.200 ng/mL or greater followed by a subsequent confirmatory PSA value 0.200 ng/mL or greater. Values obtained with different assay methods or kits cannot be used interchangeably. Results cannot be interpreted as absolute evidence of the presence or absence of malignant disease. Performed By: #### L 3110.0500 #### [facility] [address] [place], [address] Free PSA/Total PSA [Mass fra ction]Ordered By: Serafin Rod on 11-01-2024 % Free Prostate Specific Ag Calc 34.8 % . [facility] Comment on above: The table below list s the probability of prostate cancer formen with non-suspicious HILLARY results and total PSA between4 and 10 ng/mL, by patient age (Johanna et al, GEOVANNA 1998,279:1542). % Free PSA 50-64 yr 65-75 yr 0.00-10.00% 56% 55% 10.01-15.00% 24% 35% 15.01-20.00% 17% 23% 20.01-25.00% 10% 20% >25.00% 5% 9%Please note: Johanna et al did not make specific recommendations regarding the use of percent free PSA for any other population of men.Performed at: [address] [id number] Director: Rodger Dunlap PhD, Phone: [phone] Free prostate specific antig en (PSA) measurementOrdered By: Serafin Rod on 11-01-2024 Free Prostate Specific Antigen 1.87 ng/mL N/A [facility] Comment on above: Johnny ECLIA methodol ogy. PSA, totalOrdered By: Serafin bustamante on 11-01-2024 Prostate Specific Ag, Ultra-Sensitv 5.370 ng/mL High 0.000-4.000 [facility] Comment on above: Johnny ECLIA methodol ogy.According to the [place] [employer], Serum PSAshould decrease and remain at undetectable levels afterradical prostatectomy. The AUA defines biochemicalrecurrence as an initial PSA value 0.200 ng/mL or greaterfollowed by a subsequent confirmatory PSA value 0.200 ng/mLor greater. Values obtained with different assay methods orkits cannot be used interchangeably. Results cannot beinterpreted as absolute evidence of the presence or absenceof malignant disease. Testosterone, Total / Freeon 10-26-2024 TESTOSTER,FREE 8.30 ng/dL Normal 5.00-21.00 [facility] Comment on above: Order Comment: N Performed By: #### L 506.1000, L503.0105, L3100.5310, L501.9940 #### [facility] [address] [place], [address] TESTOSTER,TOTAL 437 ng/dL Normal 264-916 [facility] Comment on above: Order Comment: N Result Comment: Adul t male reference interval is based on a population of healthy nonobese males (BMI <30) between 19 and 39 years old. Preethi et.al. JCEM 2017,102;9997-9359. PMID: [id number]. Performed By: #### L 506.1000, L503.0105, L3100.5310, L501.9940 #### [facility] [address] [place], [place], [address] TESTOSTERONE,%F 1.90 Normal 1.50-4.20 [facility] Comment on above: Order Comment: N Result Comment: Perf ormed at: - [facility] [id number] Hydrogenation Operator: Rodger Dunlap PhD, Phone: [phone] Performed at: - [facility] [id number] Hydrogenation Operator: Whitney Faust MD, Phone: [phone] Performed By: #### L 506.1000, L503.0105, L3100.5310, L501.9940 #### [facility] [address] [place], [address] [id number] DOrdered By: Erica Paiz on 10-19-2024 Vitamin D 25-Hydroxy 10.5 ng/mL [facility] Comment on above: Vitamin D 25(OH) Sta tus Range Deficiency <20 ng/mL (50nmol/L) Insufficiency 20 - 30 ng/mL (50 - 75 nmol/L) Sufficiency 30 - 100 ng/mL (75 - 250 nmol/L) Toxicity >100 ng/mL (>250 nmol/L) Diagnostic total prostate sp ecific antigen (PSA) measurementOrdered By: Cely Paiz on 10-19-2024 Prostate Specific Antigen Total 9.29 ng/mL High 0.0-4.0 [facility] Comment on above: This test was perfor med using the TPSA assay method for theHealcerion chemistry system. Values obtained with differentassay methods cannot be used interchangably.When changing PSA assays in the course of monitoring apatient, additional sequential testing should be carriedout to confirm baseline values. PSA,Total- Diagnosticon 10-01 PSA, DIAGNOSTIC 9.29 ng/mL High 0.0-4.0 [facility] Comment on above: Result Comment: This test was performed using the TPSA assay method for the [employer] chemistry system. Values obtained with different assay methods cannot be used interchangably. When changing PSA assays in the course of monitoring a patient, additional sequential testing should be carried out to confirm baseline values. Performed By: #### L 506.1000, L503.0105, L3100.5310, L501.9940 #### [facility] [place], [address] Testosterone Free [Mass/Vol] Ordered By: Cely Paiz on 10-19-2024 Free Testosterone 8.30 ng/dL 5.00-21.00 [facility] Testosterone Free/Testostero ne.total [Mass fraction]Ordered By: Cely Paiz on 10-19-2024 Percent Free Testosterone 1.90 % 1.50-4.20 [facility] Comment on above: Performed at: [facility] charan [address] [id number] Director: Rodger Dunlap PhD, Phone: [phone] at: [facility] [address] [place], [place] [id number] Director: Whitney Faust MD, Phone: [phone] Testosterone, totalOrdered B y: Cely Paiz on 10-19-2024 Testosterone [Mass/Vol] 437 ng/dL 264-916 [facility] Comment on above: Adult male reference interval is based on a population ofhealthy nonobese males (BMI <30) between 19 and 39 yearsold. Preethi et.al. JCEM 2017,102;1685-9894. PMID:[id number]. Vitamin B12on 10-19-2024 Cobalamin (Vitamin B12) [Mass/Vol] 780 pg/mL Normal 211-911 [facility] Comment on above: Performed By: #### L 506.1000, L503.0105, L3100.5310, L501.9940 #### [facility] [address] [place], [address] Vitamin B12 measurementOrder ed By: Cely Paiz on 10-19-2024 Cobalamin (Vitamin B12) [Mass/Vol] 780 pg/mL 211-911 [facility] Vitamin D,25 Hydroxyon 10-19 Vitamin D 25-OH 10.5 ng/mL Normal [facility] Comment on above: Result Comment: Aileen min D 25(OH) Status Range Deficiency <20 ng/mL (50nmol/L) Insufficiency 20 - 30 ng/mL (50 - 75 nmol/L) Sufficiency 30 - 100 ng/mL (75 - 250 nmol/L) Toxicity >100 ng/mL (>250 nmol/L) Performed By: #### L 506.1000, L503.0105, L3100.5310, L501.9940 #### [facility] [address] [place], [address] Internal Medicine Office Vis itobrittany 10-18-2024 Internal Medicine Office Visit [facility] [address] [place], [place] [address] OFFICE VISIT Date of Service: 10/19/24 MR#: [id number] Acct: [id number] Name: MG DIAZ II Rep #: [id number] : 1960 Provider: Dr. 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 Accompanied by: Self Is patient in pain?: No Allergies atorvastatin calcium (From Lipitor) Allergy (Verified 10/19/24 07:36) Unknown fenofibrate nanocrystallized (From Tricor) Allergy (Verified 10/19/24 07:36) Unknown fenofibrate,micronized (From Tricor) Allergy (Verified 10/19/24 07:36) Unknown pravastatin sodium (From Pravachol) Allergy (Verified 10/19/24 07:36) Unknown rosuvastatin calcium (From Crestor) Allergy (Verified 10/19/24 07:36) Unknown simvastatin (From Zocor) Allergy (Verified 10/19/24 07:36) Unknown Medications ???Medication ???Instructions ???Recorded ???Confirmed ???Type acetaminophen 500 mg tablet 1,000 mg (2 x 500 mg) PO Q8H PRN 12/24/18 10/19/24 Rx PRN pain. fever. diltiazem HCl 180 mg 180 mg PO DAILY #90 caps 02/26/24 10/19/24 Rx capsule,extended release 24 hr clopidogrel 75 mg tablet 75 mg PO DAILY #90 tabs 03/03/24 10/19/24 Rx glimepiride 1 mg tablet 1 mg PO DAILY #90 tabs 05/05/24 10/19/24 Rx losartan 100 1 tab PO QDAY #90 tabs 06/23/24 10/19/24 Rx mg-hydrochlorothiazide 25 mg tablet metoprolol succinate 100 mg 100 mg PO BID #180 tabs 06/23/24 10/19/24 Rx tablet,extended release 24 hr apixaban 5 mg tablet (Eliquis) 5 mg PO BID #60 tabs 07/05/24 10/19/24 Rx gabapentin 300 mg capsule 600 mg (2 x 300 mg) PO TID leg 10/04/24 10/19/24 Rx pain/sleep #180 caps Have you fallen in the past year?: No PFSH Medical History Carpal tunnel syndrome Paroxysmal atrial fibrillation Obesity Atherosclerosis of coronary artery of [place] heart without angina pectoris Ischemic cardiomyopathy Essential (primary) hypertension Orchitis and epididymitis Severe sepsis Hyperlipidemia Surgical History H/O cataract extraction Hx of appendectomy H/O knee surgery H/O rotator cuff surgery History of left heart catheterization (09/02/14) History of coronary artery stent placement (11/22/13) Family History Father CAD (coronary artery disease) Mother CAD (coronary artery disease) Myocardial infarction Fibromyalgia Sister Aneurysm Atrial fibrillation Fibromyalgia Other Heart disease Social History adopted: No household members: none current occupational status: employed 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 pets and animals: No Smoking Status: Never smoker Electronic Cigarette Use: not used alcohol intake: never substance use type: does not use caffeine: Yes (2) Type: carbonated beverages seatbelt use: always do you feel safe at home: Yes HPI HPI Chief Complaint: 1M FU Details: MG DIAZ, is a 64 M who presents to the office today for a follow up. He is up to date on his routine labs and previously declined any colon cancer screening. He previously declined a flu shot. He doesn't smoke and does not need refills. He reports he is eating healthy and he reports that he is staying active. He doesn't check his sugars at home. He is taking his medication as prescribed without problems. He has been trying to monitor his carbohydrate and sugar intake. He is up to date on his diabetic eye exam and doesn't see podiatry. The patient has a history of afib and CAD. He follows with cardiology and last saw them in January at which time his medications were adjusted. He is taking his medication as prescribed without problems. He denies any chest pain, shortness of breath or palpitations. He had a stress test in August 2023 which was negative. He doesn't check his blood pressure at home. He is taking his medication as prescribed without problems. He still does not monitor his salt intake. The patient has a history of chronic pain and fibromyalgia. He states he has broken and injured multiple joints previously. He is no longer taking the tramadol. He is no longer seeing pain m anagement. He reports he did injections years ago and didn't find them effective. He was seeing orthopedics who sugg (more content not included)... Normal [facility] Basophil percentageOrdered B y: Neto Goldsmith on 09-18-2023 Bilirubin [Mass/Vol] 0.40 mg/dL 0.20-1.00 [facility] Comment on above: For patients on eltr ombopag therapy, use of Dimension [place] TBIL is not recommended. Chloride [Moles/Vol] 104 mmol/L 98-107 [facility] Cholesterol [Mass/Vol] 214 mg/dL <200 [facility] Comment on above: <200 mg/dL Desirable 200-240 mg/dL Borderline >240 mg/dL High Risk Glucose [Mass/Vol] 117 mg/dL 74-106 [facility] Comment on above: Fasting Glucose resu lt from 100 to 125 mg/dL suggests IMPAIRED HOMEOSTASIS per A.D.A. criteria. Potassium [Moles/Vol] 3.4 mmol/L 3.5-5.1 [facility] Protein [Mass/Vol] 7.3 g/dL 6.4-8.2 [facility] Sodium [Moles/Vol] 137 mmol/L 136-145 [facility] Triglyceride [Mass/Vol] 343 mg/dL <199 [facility] Comment on above: The drugs N-Acetylcy steine and Metamizole may falsely depress this assay.Serum Triglycerides Reference Interval Normal <150 mg/dL Borderline high 150 - 199 mg/dL High 200 - 499 mg/dL Very High > or = 500 mg/dL Laboratory - Chemistry and C hemistry - challengeOrdered By: Neto Goldsmith on 09-18-2023 ALP [Catalytic activity/Vol] 110 U/L 45-117 [facility] ALT [Catalytic activity/Vol] 42 U/L 16-61 [facility] CO2 [Moles/Vol] 27.0 mmol/L 21.0-32.0 [facility] Globulin (S) [Mass/Vol] 4.0 g/dL 2.2-4.2 [facility] Magnesium [Mass/Vol] 1.9 mg/dL 1.6-2.6 [facility] Urea nitrogen/Creatinine [Mass ratio] 14.8 mg/mg 10-20 [facility] No Panel InformationOrdered By: Neto Goldsmith on 09-18-2023 Estimated GFR (MDRD) Amer 89 mL/min >60 [facility] Comment on above: GFR Calc Estimated GFR (MDRD) Non-Af Amer 73 mL/min >60 [facility] Comment on above: Non- GFR Calc Serum or plasma albumin apollo urement (mass/volume)Ordered By: Neto Goldsmith on 09-18-2023 Albumin [Mass/Vol] 3.3 g/dL 3.2-5.0 [facility] Serum or plasma albumin/glob ulin mass ratioOrdered By: Neto Goldsmith on 09-18-2023 Albumin/Globulin [Mass ratio] 0.8 {ratio} 0.9-2.4 [facility] [facility] Serum or plasma calcium apollo urement (mass/volume)Ordered By: Neto Goldsmith on 09-18-2023 Calcium [Mass/Vol] 9.1 mg/dL 8.5-10.1 [facility] Serum or plasma cholesterol in HDL measurement (mass/volume)Ordered By: Neto Goldsmith on 09-18-2023 Cholesterol in HDL [Mass/Vol] 35 mg/dL >40 [facility] Comment on above: The drugs N-Acetylcy steine and Metamizole may falsely depress this assay. Reference Range HDL <40 mg/dL Low HDL Cholesterol HDL >or= 60 mg/dL High HDL Cholesterol Serum or plasma cholesterol in VLDL measurement (mass/volume)Ordered By: Neto Goldsmith on 09-18-2023 Cholesterol in VLDL [Mass/Vol] 69 mg/dL 5-40 [facility] Serum or plasma creatinine m easurement (mass/volume)Ordered By: Neto Goldsmith on 10-19-2023 Creatinine [Mass/Vol] 1.08 mg/dL 0.70-1.30 [facility] Comment on above: The validity of the calculated GFR & GFRAA in patients over 70 years has not been determined. Clinical correlation is essential. Serum or plasma low density lipoprotein (LDL) cholesterol measurement (mass/volume)Ordered By: Neto Goldsmith on 09-18-2023 Cholesterol in LDL [Mass/Vol] 110 mg/dL 0-130 [facility] Serum or plasma urea nitroge n measurement (mass/volume)Ordered By: Neto Goldsmith on 09-18-2023 Urea nitrogen [Mass/Vol] 16 mg/dL 7-18 [facility] Thin prep Papanicolaou smear with manual screeningOrdered By: Neto Goldsmith on 09-18-2023 Thin prep Papanicolaou smear with manual screening 18 U/L 15-37 [facility] Thin prep Papanicolaou smear with manual screening 6 5-15 [facility] Whole blood hemoglobin A1c/t otal hemoglobin ratio (mass fraction)Ordered By: Neto Goldsmith on 09-18-2023 HbA1c (Bld) [Mass fraction] 5.9 % 3.8-5.6 [facility] Comment on above: Normal < 5.7 % Predi abetic 5.7 - 6.4 % Diabetic >or= 6.5 % Please note range changes. No Panel InformationOrdered By: Francesca Yan on 08-01-2023 Digoxin Level 0.86 ng/mL 0.80-2.00 [facility] No Panel InformationOrdered By: Dr. Blackmon on 02-06-2023 Estimated GFR (MDRD) Amer 70 mL/min >60 [facility] Comment on above: GFR Calc Estimated GFR (MDRD) Non-Af Amer 58 mL/min >60 [facility] Comment on above: Non- GFR Calc Serum or plasma creatinine m easurement (mass/volume)Ordered By: Dr. Blackmon on 02-06-2023 Creatinine [Mass/Vol] 1.32 mg/dL 0.70-1.30 [facility] Comment on above: The validity of the calculated GFR & GFRAA in patients over 70 years has not been determined. Clinical correlation is essential. Basophil percentageon 2021 Bilirubin [Mass/Vol] 0.40 mg/dL 0.20-1.00 [facility] Work Phone: Comment on above: For patients on eltr ombopag therapy, use of Dimension [place] TBIL is not recommended. Chloride [Moles/Vol] 99 mmol/L 98-107 [facility] Work Phone: Cholesterol [Mass/Vol] 205 mg/dL <200 [facility] Work Phone: Comment on above: <200 mg/dL Desirable 200-240 mg/dL Borderline >240 mg/dL High Risk Glucose [Mass/Vol] 121 mg/dL 74-106 [facility] Work Phone: Comment on above: Fasting Glucose resu lt from 100 to 125 mg/dL suggests IMPAIRED HOMEOSTASIS per A.D.A. criteria. Potassium [Moles/Vol] 4.3 mmol/L 3.5-5.1 [facility] Work Phone: Protein [Mass/Vol] 7.8 g/dL 6.4-8.2 [facility] Work Phone: Sodium [Moles/Vol] 135 mmol/L 136-145 [facility] Work Phone: Triglyceride [Mass/Vol] 303 mg/dL <199 [facility] Work Phone: Comment on above: The drugs N-Acetylcy steine and Metamizole may falsely depress this assay.Serum Triglycerides Reference Interval Normal <150 mg/dL Borderline high 150 - 199 mg/dL High 200 - 499 mg/dL Very High > or = 500 mg/dL Laboratory - Chemistry and C hemistry - challengeon 09-03-2022 ALP [Catalytic activity/Vol] 116 U/L 45-117 [facility] Work Phone: ALT [Catalytic activity/Vol] 40 U/L 16-61 [facility] Work Phone: CO2 [Moles/Vol] 30.0 mmol/L 21.0-32.0 [facility] Work Phone: Globulin (S) [Mass/Vol] 4.5 g/dL 2.2-4.2 [facility] Work Phone: Urea nitrogen/Creatinine [Mass ratio] 14.2 mg/mg 10-20 [facility] Work Phone: No Panel Informationon 09-03 Estimated GFR (MDRD) Amer 74 mL/min >60 [facility] Work Phone: Comment on above: GFR Calc Estimated GFR (MDRD) Non-Af Amer 61 mL/min >60 [facility] Work Phone: Comment on above: Non- GFR Calc Serum or plasma albumin apollo urement (mass/volume)on 09-03-2022 Albumin [Mass/Vol] 3.3 g/dL 3.2-5.0 [facility] Work Phone: Serum or plasma albumin/glob ulin mass ratioon 09-03-2022 Albumin/Globulin [Mass ratio] 0.7 {ratio} 0.9-2.4 [facility] Work Phone: Serum or plasma calcium apollo urement (mass/volume)on 09-03-2022 Calcium [Mass/Vol] 9.4 mg/dL 8.5-10.1 [facility] Work Phone: Serum or plasma cholesterol in HDL measurement (mass/volume)on 09-03-2022 Cholesterol in HDL [Mass/Vol] 40 mg/dL >40 [facility] Work Phone: Comment on above: The drugs N-Acetylcy steine and Metamizole may falsely depress this assay. Reference Range HDL <40 mg/dL Low HDL Cholesterol HDL >or= 60 mg/dL High HDL Cholesterol Serum or plasma cholesterol in VLDL measurement (mass/volume)on 09-03-2022 Cholesterol in VLDL [Mass/Vol] 61 mg/dL 5-40 [facility] Work Phone: Serum or plasma creatinine m easurement (mass/volume)on 09-03-2022 Creatinine [Mass/Vol] 1.27 mg/dL 0.70-1.30 [facility] Work Phone: Comment on above: The validity of the calculated GFR & GFRAA in patients over 70 years has not been determined. Clinical correlation is essential. Serum or plasma low density lipoprotein (LDL) cholesterol measurement (mass/volume)on 09-03-2022 Cholesterol in LDL [Mass/Vol] 104 mg/dL 0-130 [facility] Work Phone: Serum or plasma urea nitroge n measurement (mass/volume)on 09-03-2022 Urea nitrogen [Mass/Vol] 18 mg/dL 7-18 [facility] Work Phone: Thin prep Papanicolaou smear with manual screeningon 09-03-2022 Thin prep Papanicolaou smear with manual screening 19 U/L 15-37 [facility] Work Phone: Thin prep Papanicolaou smear with manual screening 6 5-15 [facility] Work Phone: Whole blood hemoglobin A1c/t otal hemoglobin ratio (mass fraction)on 09-03-2022 HbA1c (Bld) [Mass fraction] 5.9 % 3.8-5.6 [facility] Work Phone: Comment on above: Normal < 5.7 % Predi abetic 5.7 - 6.4 % Diabetic >or= 6.5 % Please note range changes. Absolute lymphocyte counton 05-24-2022 Lymphocytes Auto (Unsp spec) [#/Vol] 1.63 10*3/uL 0.83-4.51 [facility] Work Phone: Basophil percentageon 2021 Basophils/100 WBC (Bld) 0.8 % 0-1 [facility] Work Phone: Bilirubin [Mass/Vol] 0.50 mg/dL 0.20-1.00 [facility] Work Phone: Comment on above: For patients on eltr ombopag therapy, use of Dimension [place] TBIL is not recommended. Chloride [Moles/Vol] 99 mmol/L 98-107 [facility] Work Phone: Cholesterol [Mass/Vol] 259 mg/dL <200 [facility] Work Phone: Comment on above: <200 mg/dL Desirable 200-240 mg/dL Borderline >240 mg/dL High Risk Eosinophils/100 WBC (Bld) 2.5 % 0-5 [facility] Work Phone: Glucose [Mass/Vol] 140 mg/dL 74-106 [facility] Work Phone: Comment on above: Fasting Glucose resu lt greater than or equal to 126 mg/dL suggests DIABETES MELLITUS per A.D.A. criteria. Neutrophils (Bld) [#/Vol] 5.9 10*3/uL 2.0-7.7 [facility] Work Phone: Neutrophils/100 WBC (Bld) 69.9 % 47-70 [facility] Work Phone: Potassium [Moles/Vol] 3.8 mmol/L 3.5-5.1 [facility] Work Phone: Protein [Mass/Vol] 7.9 g/dL 6.4-8.2 [facility] Work Phone: Sodium [Moles/Vol] 136 mmol/L 136-145 [facility] Work Phone: Triglyceride [Mass/Vol] 394 mg/dL <199 [facility] Work Phone: Comment on above: The drugs N-Acetylcy steine and Metamizole may falsely depress this assay.Serum Triglycerides Reference Interval Normal <150 mg/dL Borderline high 150 - 199 mg/dL High 200 - 499 mg/dL Very High > or = 500 mg/dL WBC (Bld) [#/Vol] 8.5 10*3/uL 4.4-11.0 [facility] Work Phone: Blood erythrocytes count (nu mber/volume)on 05-24-2022 RBC (Bld) [#/Vol] 5.30 10*6/uL 4.6-6.2 [facility] Work Phone: Blood hemoglobin measurement (mass/volume)on 05-24-2022 Hemoglobin (Bld) [Mass/Vol] 16.0 g/dL 13.0-16.5 [facility] Work Phone: Blood lymphocytes/100 leukoc yteson 05-24-2022 Lymphocytes/100 WBC (Bld) 19.3 % 19-41 [facility] Work Phone: Blood monocytes/100 leukocyt eson 05-24-2022 Monocytes/100 WBC (Bld) 7.0 % 0-10 [facility] Work Phone: Blood platelet mean volumeon 05-24-2022 Platelet mean volume (Bld) [Entitic vol] 8.7 fL 6.2-12.0 [facility] Work Phone: Determination of erythrocyte mean corpuscular volume (MCV)on 05-24-2022 MCV (RBC) [Entitic vol] 86.8 fL 80-94 [facility] Work Phone: Hematocrit Auto (Bld) [Volum e fraction]on 05-24-2022 Hematocrit (Bld) [Volume fraction] 46.0 % 40-54 [facility] Work Phone: Laboratory - Chemistry and C hemistry - challengeon 05-24-2022 ALP [Catalytic activity/Vol] 113 U/L 45-117 [facility] Work Phone: ALT [Catalytic activity/Vol] 26 U/L 16-61 [facility] Work Phone: CO2 [Moles/Vol] 29.0 mmol/L 21.0-32.0 [facility] Work Phone: Globulin (S) [Mass/Vol] 4.4 g/dL 2.2-4.2 [facility] Work Phone: Urea nitrogen/Creatinine [Mass ratio] 18.1 mg/mg 10-20 [facility] Work Phone: Laboratory - Hematology and Cell countson 05-24-2022 Erythrocyte distribution width (RBC) [Entitic vol] 39.5 fL 35.1-43.9 [facility] Work Phone: Erythrocyte distribution width (RBC) [Ratio] 12.5 % 11.6-14.6 [facility] Work Phone: Immature granulocytes/100 WBC (Bld) 0.500 % 0.0-0.9 [facility] Work Phone: Comment on above: IG% - Immature Granu locytes (promyelocytes, myelocytes and metamyelocytes) > 1% indicates that a LEFT SHIFT is Present. MCH (RBC) [Entitic mass] 30.2 pg 27.0-32.0 [facility] Work Phone: Nucleated RBC/100 WBC (Bld) [Ratio] 0 % 0-5 [facility] Work Phone: MCHC Auto (RBC) [Mass/Vol]on 05-24-2022 MCHC (RBC) [Mass/Vol] 34.8 g/dL 32-36 [facility] Work Phone: No Panel Informationon 05-24 Estimated GFR (MDRD) Amer 82 mL/min >60 [facility] Work Phone: Comment on above: GFR Calc Estimated GFR (MDRD) Non-Af Amer 68 mL/min >60 [facility] Work Phone: Comment on above: Non- GFR Calc Urine Microalbumin/Creatini ne Ratio 19.9 mg/g CRE <30 [facility] Work Phone: Platelets bldon 05-24-2022 Platelets (Bld) [#/Vol] 275 10*3/uL 150-450 [facility] Work Phone: Serum or plasma albumin apollo urement (mass/volume)on 05-24-2022 Albumin [Mass/Vol] 3.5 g/dL 3.2-5.0 [facility] Work Phone: Serum or plasma albumin/glob ulin mass ratioon 05-24-2022 Albumin/Globulin [Mass ratio] 0.8 {ratio} 0.9-2.4 [facility] Work Phone: Serum or plasma calcium apollo urement (mass/volume)on 05-24-2022 Calcium [Mass/Vol] 9.5 mg/dL 8.5-10.1 [facility] Work Phone: Serum or plasma cholesterol in HDL measurement (mass/volume)on 05-24-2022 Cholesterol in HDL [Mass/Vol] 35 mg/dL >40 [facility] Work Phone: Comment on above: The drugs N-Acetylcy steine and Metamizole may falsely depress this assay. Reference Range HDL <40 mg/dL Low HDL Cholesterol HDL >or= 60 mg/dL High HDL Cholesterol Serum or plasma cholesterol in VLDL measurement (mass/volume)on 05-24-2022 Cholesterol in VLDL [Mass/Vol] 79 mg/dL 5-40 [facility] Work Phone: Serum or plasma creatinine m easurement (mass/volume)on 05-24-2022 Creatinine [Mass/Vol] 1.16 mg/dL 0.70-1.30 [facility] Work Phone: Comment on above: The validity of the calculated GFR & GFRAA in patients over 70 years has not been determined. Clinical correlation is essential. Serum or plasma low density lipoprotein (LDL) cholesterol measurement (mass/volume)on 05-24-2022 Cholesterol in LDL [Mass/Vol] 145 mg/dL 0-130 [facility] Work Phone: Serum or plasma urea nitroge n measurement (mass/volume)on 05-24-2022 Urea nitrogen [Mass/Vol] 21 mg/dL 7-18 [facility] Work Phone: Thin prep Papanicolaou smear with manual screeningon 05-24-2022 Thin prep Papanicolaou smear with manual screening 17 U/L 15-37 [facility] Work Phone: Thin prep Papanicolaou smear with manual screening 8 5-15 [facility] Work Phone: Thin prep Papanicolaou smear with manual screening 20.1 mg/L NO RANGE EST. [facility] Work Phone: Urine creatinine measurement (mass/volume)on 05-24-2022 Creatinine (U) [Mass/Vol] 101.00 mg/dL NO RANGE EST. [facility] Work Phone: Whole blood hemoglobin A1c/t otal hemoglobin ratio (mass fraction)on 05-24-2022 HbA1c (Bld) [Mass fraction] 6.7 % 3.8-5.6 [facility] Work Phone: Comment on above: Normal < 5.7 % Predi abetic 5.7 - 6.4 % Diabetic >or= 6.5 % Please note range changes. CNOVon 06-01-2017 CNOV Office Visit ([facility]) MG DIAZ II ([id number]) 1960 MDate Time Provider Department06/01/17 2:15 PM RASHIDA TALBOT) WSTR During your visit today, we recorded the following information about you: Pulse Respiration Blood pressure Weight 108/minute 24/minute 122/80 94.3 kgRashida Talbot CNP 06/01/2017 2:44 PM Guillermina Diaz II is a 56 year old male who presents today for right handswelling and redness. Got ANDquot;crunchedANDquot; between starter and car . ANDquot;had a knot on itANDquot; after that but did not have swelling orredness until today. Has doubled in size in less than a few hours. Unable tomove fingers and feels numb. Entire right hand is swollen including fingers.Top of hand with bruising and redness. Patient was advised he should go to ERfor further evaluation. He is agreeable and will go to [facility] ER.Rashida Talbot CNPReferring Provider: SELF [200]Allergies As of Date: 06/01/2017 Noted Allergy [id number] REDUCTASE INHIBIT*06/01/2017 1 - Mental Status ChangeDate Reviewed: 06/01/2017Reviewed by: Grisel Cahnel LPN - Fully AssessedReason for Visit: Hand Injury [1974] Cmt: Right hand pinched by a starter and truck frame X 2 days agoPrimary Visit Diagnosis:APPOINTMENT CANCELLEDPrescriptions as of 06/01/2017 Sig: LOSARTAN ORAL Take by mouth. COUMADIN 5 MG TABLET TAKE ONE TABLET DAILY DIGOXIN 250 MCG TABLET take one tablet daily PLAVIX 75 MG TABLET Take one(1) tablet daily. TOPROL XL 50 MG TABLET,EXTEND* Take one(1) tablet daily. WELCHOL 625 MG TABLET take two tablets twice daily ULTRAM 50 MG TABLET Take one(1) tablet every four*Medication notes this encounter WELCHOL 625 MG TABLET >> Grisel Chanel LPN 06/01/2017 2:18 PM >> GRISEL CHANEL LPN Jun 01, 2017 2:18 PM Not taking ULTRAM 50 MG TABLET >> Grisel Chanel LPN 06/01/2017 2:18 PM >> GRISEL CHANEL LPN Jun 01, 2017 2:18 PM Not takingProblem List As Of Date 06/01/2017 Noted Resolved APPENDICITIS ACUTE [K35.80] INVALID FOR* Chronic Cholecystitis [K81.1] INVALID FOR* Screening for Colon Cancer [Z12.11] INVALID FOR* Status:Closed by RASHIDA TALBOT CNP on 06/01/17 [facility] PROGRESSon 06-01-2017 PROGRESS HNO ID: [id number] thor: Rashida (Balaji) AimeService: (none)Author Type: Nurse PractitionerType: Progress NotesFiled: 06/01/2017 2:44 PMNote Text:Mg Diaz II is a 56 year old male who presents today for righthand swelling and redness. Got crunched between starter and car frameye. had a knot on it after that but did not have swelling orredness until today. Has doubled in size in less than a few hours. Unableto move fingers and feels numb. Entire right hand is swollen includingfingers. Top of hand with bruising and redness. Patient was advised heshould go to ER for further evaluation. He is agreeable and will go to [facility].Rashida Talbot CNP Normal [facility] Office Visiton 05-08-2017 Documentation of current medications (procedure) Done Invalid Interpretation Code [facility] Work Phone: [phone] Fall risk assessment No [facility] Work Phone: [phone] Protein mass conc Done [facility] Work Phone: [phone] Lab Report: Prothrombin Time w/INRon 05-05-2017 INR Coag (PPP) [Relative time] 2.9 {INR} [facility] Work Phone: [phone] INR in blood by coagulation 2.9 {INR} Invalid Interpretation Code [facility] Work Phone: [phone] PT Coag (PPP) [Time] 28.8 s High 11.7-14.9 [facility] Work Phone: [phone] Lab Report: Protime w/INR Fi ngerstickon 01-09-2015 GE use only - for [employer] import when terms are not otherwise specified 3.40 Invalid Interpretation Code [facility] Work Phone: [phone] INR ISTAT 3.40 [facility] Work Phone: [phone] Office Visit: Warfarin Calco n 01-09-2015 INR Coag (Bld) [Relative time] Hospital lab [facility] Work Phone: [phone] INR in blood by coagulation 2 to 3 Invalid Interpretation Code [facility] Work Phone: [phone] international normalized ratio (INR) range 2 to 3 [facility] Work Phone: [phone] PT Coag (PPP) [Time] 38.4 s [facility] Work Phone: [phone] Office Visiton 09-28-2014 Dietary management education, guidance, and counseling (procedure) yes Invalid Interpretation Code [facility] Work Phone: [phone] Documentation of current medications (procedure) Done Invalid Interpretation Code [facility] Work Phone: [phone] Clinical Lists Update: Prelo pairer 09-02-2014 Chloride [Moles/Vol] 108 mmol/L [facility] Work Phone: [phone] CO2 24 mmol/L Invalid Interpretation Code [facility] Work Phone: [phone]() CO2 (BldV) [Partial pressure] 24 mmol/L [facility] Work Phone: [phone]() Creatinine [Mass/Vol] 0.95 mg/dL [facility] Work Phone: [phone]() Erythrocytes (RBC) 4.81 10*6/uL Invalid Interpretation Code [facility] Work Phone: [phone]() Glucose 96 mg/dL Invalid Interpretation Code [facility] Work Phone: 1() Glucose [Mass/Vol] 96 mg/dL [facility] Work Phone: [phone]() Hematocrit (Bld) [Volume fraction] 41.9 % [facility] Work Phone: [phone]() Hematocrit (HCT) 41.9 % Invalid Interpretation Code [facility] Work Phone: [phone]() Hemoglobin (Bld) [Mass/Vol] 14.3 g/dL [facility] Work Phone: 1() MCH 29.7 pg Invalid Interpretation Code [facility] Work Phone: [phone]() MCH (RBC) [Entitic mass] 29.7 pg [facility] Work Phone: [phone]() MCHC 34.1 g/dL Invalid Interpretation Code [facility] Work Phone: 1() MCHC (RBC) [Mass/Vol] 34.1 g/dL [facility] Work Phone: [phone]() MCV 87.1 fL Invalid Interpretation Code [facility] Work Phone: 1() MCV (RBC) [Entitic vol] 87.1 fL [facility] Work Phone: 1() Platelets 177 10*3/mm3 Invalid Interpretation Code [facility] Work Phone: 1() Platelets (Bld) [#/Vol] 177 10*3/mm3 [facility] Work Phone: 1() Potassium [Moles/Vol] 3.4 mmol/L Low [facility] Work Phone: 1() RBC (Bld) [#/Vol] 4.81 10*6/uL [facility] Work Phone: [phone] Sodium [Moles/Vol] 139 mmol/L [facility] Work Phone: [phone] Urea nitrogen [Mass/Vol] 21 mg/dL [facility] Work Phone: [phone] WBC (Bld) [#/Vol] 8.6 10*3/uL [facility] Work Phone: [phone] WBC (Leukocytes) 8.6 10*3/uL Invalid Interpretation Code [facility] Work [phone] Lab Report: BMPon 04-26-2014 Anion gap 11 mmol/L Normal 5-15 [facility] Work Phone: [phone] Anion gap [Moles/Vol] 11 mmol/L Normal 5-15 [facility] Work Phone: [phone] Calcium [Mass/Vol] 9.4 mg/dL Normal 8.5-10.1 [facility] Work Phone: [phone] eGFR (non-black) 101 mL/min/{1.73_m2} Normal >60 [facility] Work Phone: [phone] eGFR (non-black) 83 mL/min/{1.73_m2} Normal >60 [facility] Work Phone: [phone] GFR/1.73 sq M.predicted MDRD (S/P/Bld) [Vol rate/Area] 83 mL/min/{1.73_m2} Normal >60 [facility] Work Phone: [phone] GFRAA 101 mL/min Normal >60 [facility] Work Phone: [phone] Urea nitrogen/Creatinine [Mass ratio] 19.0 RATIO Normal 10-20 [facility] Work Phone: [phone] Lab Report: CBCon 04-26-2014 Platelet mean volume (Bld) [Entitic vol] 9.6 fL Normal 6.2-12.0 [facility] Work Phone: [phone] PMV by Kain 9.6 fL Normal 6.2-12.0 [facility] Work Phone: [phone] Lab Report: LIPIDon 04-26-20 14 Triglyceride [Mass/Vol] 1324 mg/dL High 0-199 [facility] Work Phone: [phone] Cholesterol [Mass/Vol] 378 mg/dL High 200 [facility] Work Phone: [phone] Cholesterol in HDL [Mass/Vol] 28 mg/dL Low [facility] Work Phone: [phone] Cholesterol in LDL [Mass/Vol] Test not performed mg/dL Normal 0-130 [facility] Work Phone: [phone] Lipoprotein.pre-beta [Mass/Vol] 265 mg/dL High 5-40 [facility] Work Phone: [phone] Lab Report: LIVER 04-26-20 14 Albumin [Mass/Vol] 3.6 g/dL Normal 3.4-5.0 [facility] Work Phone: [phone] ALT [Catalytic activity/Vol] 39 U/L Normal 12-78 [facility] Work Phone: [phone] AST [Catalytic activity/Vol] 22 U/L Normal 15-37 [facility] Work Phone: [phone] Bilirubin [Mass/Vol] 0.40 mg/dL Normal 0.00-1.[address] [facility] [address] [facility] Work Phone: [phone] Bilirubin.direct [Mass/Vol] mg/dL Normal 0.00-0.30 [facility] Work Phone: [phone] Protein [Mass/Vol] 7.3 g/dL Normal 6.4-8.2 [facility] Work Phone: [phone] EKG Report: [facility] ECG Obse rvationson 12-03-2013 EKG QRS axis 21 deg [facility] Work Phone: [phone] electrocardiogram interpretation Atrial fibrillation -irregular conduction -RSR(V1) -nondiagnostic . ABNORMAL RHYTHM Invalid Interpretation Code [facility] Work Phone: [phone] Interpretation Atrial fibrillation -irregular conduction -RSR(V1) -nondiagnostic . ABNORMAL RHYTHM [facility] Work Phone: [phone] P Gar[place] 1 deg [facility] Work Phone: [phone] P wave axis, electrocardiogram 1 deg Invalid Interpretation Code [facility] Work Phone: [phone] WA Interval 0 ms [facility] Work Phone: WA interval, electrocardiogram 0 ms Invalid Interpretation Code [facility] Work Phone: Pulse (Heart Rate) 92 /min Invalid Interpretation Code [facility] Work Phone: [phone] Pulse (Heart Rate) 400 ms Invalid Interpretation Code [facility] Work Phone: [phone] QRS axis, electrocardiogram 21 deg Invalid Interpretation Code [facility] Work Phone: [phone] QRS Duration 96 ms [facility] Work Phone: [phone] QRS duration, electrocardiogram 96 ms Invalid Interpretation Code [facility] Work Phone: QT Interval new path ms [facility] Work Phone: [phone] QT interval, electrocardiogram new path ms Invalid Interpretation Code [facility] Work Phone: [phone] Garland -1 deg [facility] Work Phone: T wave axis, electrocardiogram -1 deg Invalid Interpretation Code [facility] Work Phone: [phone] Lab Report: LIVERon 09-27-20 13 Alkaline phosphatase (ALP) 103 U/L Invalid Interpretation Code 50-136 [facility] Work Phone: [phone] ALP (Bld) [Catalytic activity/Vol] 103 U/L 50-136 [facility] Work Phone: [phone] Office Visiton 03-09-2013 Tobacco smoking status NHIS never smoker [facility] Work Phone: [phone] Tobacco use [facility] never smoker Invalid Interpretation Code [facility] Work Phone: [phone] Vital Signs Date Time Vital Sign Value Performing Clinician Florentin howe 03-29-2025 13:00-0400 Body height 167.[address] Cely Paiz MD Work Phone: [facility] 03-29-2025 13:00-0400 Body mass index (BMI) [Ratio] 40.3 kg/m2 Dr. Cely Paiz MD Work Phone: [facility] 03-29-2025 13:00-0400 Body temperature 98.2 [degF] Dr. Cely Paiz MD Work Phone: [facility] 03-29-2025 13:00-0400 Body weight 113.[address] Cely Paiz MD Work Phone: [facility] 03-29-2025 13:00-0400 Diastolic blood pressure 84 mm[Hg] Dr. Cely Paiz MD Work Phone: [facility] 03-29-2025 13:00-0400 Heart rate 94 /min Dr. Cely Paiz MD Work Phone: [facility] 03-29-2025 13:00-0400 Respiratory rate 18 /min Dr. Cely Paiz MD Work Phone: [facility] 03-29-2025 13:00-0400 SaO2% (BldA) [Mass fraction] 96 % Dr. Cely Paiz MD Work Phone: [facility] 03-29-2025 13:00-0400 Systolic blood pressure 140 mm[Hg] Dr. Cely Paiz MD Work Phone: [facility] 10-19-2024 07:41-0500 Body height 167.[address] Cely Paiz MD Work Phone: [facility] 10-19-2024 07:41-0500 Body mass index (BMI) [Ratio] 39 kg/m2 Dr. Cely Paiz MD Work Phone: [facility] 10-19-2024 07:41-0500 Body temperature 99 [degF] Dr. Cely Paiz MD Work Phone: [facility] 10-19-2024 07:41-0500 Body weight 109.[address] Cely Paiz MD Work Phone: [facility] 10-19-2024 07:41-0500 Diastolic blood pressure 80 mm[Hg] Dr. Cely Paiz MD Work Phone: [facility] 10-19-2024 07:41-0500 Heart rate 103 /min Dr. Cely Paiz MD Work Phone: [facility] 10-19-2024 07:41-0500 Respiratory rate 16 /min Dr. Cely Paiz MD Work Phone: [facility] 10-19-2024 07:41-0500 SaO2% (BldA) [Mass fraction] 97 % Dr. Cely Paiz MD Work Phone: [facility] 10-19-2024 07:41-0500 Systolic blood pressure 138 mm[Hg] Dr. Cely Paiz MD Work Phone: [facility] 09-01-2023 08:23-0400 Body height 167.64 cm [employer] SUPERINTENDENT-C Mj Hellinger [employer] SUPERINTENDENT Work Phone: [facility] 09-01-2023 08:23-0400 Body mass index (BMI) [Ratio] 37.9 kg/m2 [employer] SUPERINTENDENT-C Mj Hellinger [employer] SUPERINTENDENT Work Phone: [facility] 09-01-2023 08:23-0400 Body weight 106.59 kg [employer] SUPERINTENDENT-C Mj Hellinger [employer] SUPERINTENDENT Work Phone: [facility] 09-01-2023 08:23-0400 Diastolic blood pressure 66 mm[Hg] [employer] SUPERINTENDENT-C Mj Hellinger [employer] SUPERINTENDENT Work Phone: [facility] 09-01-2023 08:23-0400 Heart rate 64 /min [employer] SUPERINTENDENT-C Mj Hellinger [employer] SERVICES SUPERINTENDENT Work Phone: [facility] 09-01-2023 08:23-0400 Respiratory rate 18 /min [employer] SUPERINTENDENT-C Mj Hellinger [employer] SERVICES SUPERINTENDENT Work Phone: [facility] 09-01-2023 08:23-0400 SaO2% (BldA) [Mass fraction] 99 % [employer] SUPERINTENDENT-C Mj Hellinger [employer] SERVICES SUPERINTENDENT Work Phone: [facility] 09-01-2023 08:23-0400 Systolic blood pressure 105 mm[Hg] [employer] SUPERINTENDENT-C Mj Hellinger [employer] SERVICES SUPERINTENDENT Work Phone: [facility] 01-02-2023 10:51-0500 Body height 167.64 cm [employer] SUPERINTENDENT-C Mj Hellinger [employer] SERVICES SUPERINTENDENT Work Phone: [facility] 01-02-2023 10:51-0500 Body mass index (BMI) [Ratio] 38.2 kg/m2 [employer] SUPERINTENDENT-C Mj Hellinger [employer] SUPERINTENDENT Work Phone: [facility] 01-02-2023 10:51-0500 Body weight 107.5 kg [employer] SUPERINTENDENT-C Mj Hellinger [employer] SERVICES SUPERINTENDENT Work Phone: [facility] 01-02-2023 10:51-0500 Diastolic blood pressure 83 mm[Hg] [employer] SUPERINTENDENT-C Mj Hellinger [employer] SERVICES SUPERINTENDENT Work Phone: [facility] 01-02-2023 10:51-0500 Heart rate 67 /min [employer] SUPERINTENDENT-C Mj Hellinger [employer] SERVICES SUPERINTENDENT Work Phone: [facility] 01-02-2023 10:51-0500 Respiratory rate 18 /min [employer] SUPERINTENDENT-C Mj Hellinger [employer] SERVICES SUPERINTENDENT Work Phone: [facility] 01-02-2023 10:51-0500 SaO2% (BldA) [Mass fraction] 99 % [employer] SUPERINTENDENT-C Mj Hellinger [employer] SERVICES SUPERINTENDENT Work Phone: [facility] 01-02-2023 10:51-0500 Systolic blood pressure 139 mm[Hg] [employer] SUPERINTENDENT-C Mj Hellinger [employer] SERVICES SUPERINTENDENT Work Phone: [facility] 05-08-2017 15:41-0400 BMI (Body Mass Index) 34.05 kg/m2 Sandrine Medina RN [facility] Work Phone: 05-08-2017 15:41-0400 BP Diastolic 70 mm[Hg] Sandrine Medina RN [facility] Work Phone: 05-08-2017 15:41-0400 BP Systolic 110 mm[Hg] Sandrine Medina RN [facility] Work Phone: 05-08-2017 15:41-0400 Height 167.64 cm Sandrine Medina RN [facility] Work Phone: 05-08-2017 15:41-0400 Pulse (Heart Rate) 64 /min Sandrine Medina RN [facility] Work Phone: 05-08-2017 15:41-0400 Respiratory Rate 20 /min Sandrine Medina RN [facility] Work Phone: 05-08-2017 15:41-0400 Weight 95.71 kg Sandrine Medina RN [facility] Work Phone: 09-28-2014 13:39-0400 BMI (Body Mass Index) 33.57 kg/m2 [facility] Work Phone: 09-28-2014 13:39-0400 Body weight 94.35 kg Breann Garcia RN [facility] Work Phone: 09-28-2014 13:39-0400 BP Diastolic 90 mm[Hg] Breann Garcia RN [facility] Work Phone: 09-28-2014 13:39-0400 BP Systolic 160 mm[Hg] Breann Garcia RN [facility] Work Phone: 09-28-2014 13:39-0400 Respiratory Rate 20 /min [facility] Work Phone: 09-28-2014 13:39-0400 Weight 94.35 kg Neli Esteevs [facility] Work Phone: 04-26-2014 16:14-0400 Height 167.64 cm Breann Garcia RN [facility] Work Phone: 04-26-2014 16:14-0400 Pulse (Heart Rate) 72 /min Breann Garcia RN [facility] Work Phone: 12-03-2013 14:05-0500 Heart rate 400 ms Breann Garcia RN [facility] Work Phone: 12-03-2013 14:05-0500 Heart rate 92 /min Breann Garcia RN [facility] Work Phone: Encounters Encounter Date Encounter Type Care Provider Facility Start: 09-29-2025 ambulatory Cely Paiz [place] Start: 07-25-2025 End: 07-25-[address] Cely Paiz MD Work Phone: -[facility] [place] Start: 07-25-2025 End: 07-25-2025 Patient encounter procedure Khushboo Green -[facility] [place] Work Phone: Start: 07-25-2025 End: 07-25-2025 ambulatory Cely Paiz Facility:[facility] Start: 04-21-2025 End: 04-21-[address] Cely Paiz MD Work Phone: [facility] Work Phone: Start: 04-21-2025 End: 04-21-[address] Lebron Gilbert MD -Labor[facility] [place] Work Phone: Start: 04-21-2025 End: 04-21-2025 ambulatory Lebron Gilbert Facility:[facility] Start: 03-29-2025 End: 03-29-[address] Cely Paiz MD -[facility] Work Phone: Start: 03-29-2025 End: 03-29-2025 ambulatory Cely Paiz [place] Start: 01-25-2025 End: 01-25-[address] Cely Paiz MD Work Phone: [facility] Work Phone: Start: 01-25-2025 End: 01-25-[address] Serafin Rod MD -Laboratory Work Phone: Start: 01-25-2025 End: 01-25-2025 ambulatory Cely Paiz Facility:[facility] Start: 12-03-2024 End: 12-03-[address] Cely Paiz MD -Laboratory Work Phone: Start: 12-03-2024 End: 12-03-2024 ambulatory Cely Sotolay Facility:[facility] Start: 11-01-2024 End: 11-01-[address] Serafin Rod MD -Laboratory Work Phone: Start: 11-01-2024 End: 11-01-2024 ambulatory Serafin Rod Facility:[facility] Start: 10-19-2024 End: 10-19-[address] Cely Paiz MD -Laboratory, [place] Start: 10-19-2024 End: 10-19-[address] Cely Paiz MD -[facility] Work Phone: Start: 10-19-2024 End: 10-19-2024 ambulatory Cely Chencho [place] Start: 10-19-2024 End: 10-19-2024 ambulatory Cely Chencho Facility:[facility] Start: 09-18-2023 End: 09-18-2023 ambulatory [employer] SUPERINTENDENT-C Mj Robertson [employer] SUPERINTENDENT Work Phone: [facility] Work Phone: Start: 09-18-2023 End: 09-18-2023 Patient encounter procedure [employer] SUPERINTENDENT-C Mj Robertson [employer] SUPERINTENDENT Work Phone: [facility]-Labor[facility] Work Phone: Start: 09-01-2023 End: 09-01-2023 Patient encounter procedure [employer] SUPERINTENDENT-C Mj Robertson [employer] SERVICES SUPERINTENDENT Work Phone: [facility] Work Phone: Start: 08-01-2023 End: 08-01-2023 Patient encounter procedure [employer] SUPERINTENDENT-C Mj Seayer [employer] SERVICES SUPERINTENDENT [facility] Start: 02-20-2023 End: 02-20-2023 ambulatory [employer] SUPERINTENDENT-C Mj Seayer [employer] SUPERINTENDENT Work Phone: [facility] Work Phone: Start: 02-20-2023 End: 02-20-2023 Patient encounter procedure [employer] SUPERINTENDENT-C Mj Seayer [employer] SERVICES SUPERINTENDENT [facility] Start: 02-06-2023 End: 02-06-2023 ambulatory [employer] SUPERINTENDENT-C Mj Seayer [employer] SERVICES SUPERINTENDENT Work Phone: [facility] Work Phone: Start: 02-06-2023 End: 02-06-2023 Patient encounter procedure [employer] SERVICES SUPERINTENDENT-C Mj Seayer [employer] WE[employer] SERVICES SUPERINTENDENT [facility] Start: 01-02-2023 End: 01-02-2023 Patient encounter procedure [employer] SUPERINTENDENT-C Mj Seayer [employer] SERVICES SUPERINTENDENT Work Phone: [facility] Start: 09-03-2022 End: 09-03-2022 ambulatory [facility] Work Phone: Start: 09-03-2022 End: 09-03-2022 Patient encounter procedure [facility] Start: 05-24-2022 End: 05-24-2022 Patient encounter procedure [employer] SUPERINTENDENT-C Mj Seayer [employer] SERVICES SUPERINTENDENT Work Phone: [facility] Start: 05-08-2022 Non-patient / Non-visit [employer] SUPERINTENDENT-C T barriecolin Daigletri [employer] SERVICES SUPERINTENDENT Work Phone: [facility] Start: 05-08-2022 End: 05-08-2022 Patient encounter procedure [employer] SUPERINTENDENT-C Mj Seayer [employer] SUPERINTENDENT Work Phone: [facility] Start: 06-01-2017 End: 06-01-2017 Ambulatory TATE S (OIL WELL SERVICES SUPERINTENDENT) [facility] Start: 05-27-2017 Refill Tai Cantor Work Phone: [facility] Comment on above: Medication Refill Procedures Date Procedure Procedure Detail Performing Clinician Start: 07-25-2025 X-ray of cervical spine Dr. Cely Paiz MD Work Phone: Start: 04-21-2025 Methadone measuremen t, urine Dr. Cely Paiz MD Work Phone: Start: 01-25-2025 Assay of prostate specific antigen total Dr. Cely Paiz MD Work Phone: Comment on above: This test was perfor med using the [employer] tPSA method. Measured values of a patient sample can vary depending on the testing procedure used. PSA values determined on patient samples by different testing procedures cannot be used interchangeably. If there is a change in PSA assays while monitoring therapy, sequential testing should be performed to confirm baseline values. Start: 02-20-2023 MRI of joint of uppe r extremity [employer] SUPERINTENDENT-C Mj Robertson [employer] WE[employer] SERVICES SUPERINTENDENT Work Phone: Start: 02-20-2023 MRI arthrography of shoulder [employer] SUPERINTENDENT-C Mj Robertson [employer] WELL SERVICES SUPERINTENDENT Work Phone: Start: 05-08-2022 Radionuclide imaging of perfusion of myocardium under exercise stress [employer] SUPERINTENDENT-C Mj Robertson [employer] WE[employer] SERVICES SUPERINTENDENT Work Phone: Start: 05-09-2017 End: 05-12-2017 Nuclear stress test -exercise Fernando Pratt MD Start: 05-08-2017 End: 05-12-2017 INR in Platelet poor plasma by Coagulation assay Fernando Pratt MD Start: 05-01-2017 End: 05-01-2018 Coagulation factor induced.INR assay in platelet poor plasma Fernando Pratt MD Start: 09-28-2014 End: 09-28-2014 Dietary management education, guidance, and counseling Breann Garcia RN Start: 09-28-2014 End: 09-28-2014 Documentation of current medications Breann Garcia RN Start: 09-28-2014 End: 09-28-2014 Follow Up Appt 6 months Kelly Dominguez Start: 09-28-2014 End: 09-28-2014 CHIDI Pratt MD Start: 09-12-2014 End: 09-30-2015 Coagulation factor induced.INR assay in platelet poor plasma Fernando Pratt MD Start: 04-26-2014 End: 04-26-2014 Follow Up Appt 6 months Kelly Dominguez Start: 04-26-2014 End: 04-26-2014 CHIDI Pratt MD Start: 01-28-2014 End: 04-26-2014 *Hepatic Function Panel Breann kwong PA-C Work Phone: Start: 01-28-2014 End: 04-26-2014 Lipid panel [AGGREGATE] Breann kwong PA-C Work Phone: Start: 12-03-2013 End: 12-03-2013 CHRISTIAN SCIENCE READER Breann Hwang PA-C Work Phone: Start: 12-03-2013 End: 12-03-2013 Follow Up Appt 3 months Breann kwong PA-C Work Phone: Start: 11-22-2013 History of placement of stent for coronary artery disease History of coronary artery stent placement [employer] SUPERINTENDENT-C Mj Robertson NP Work Phone: Comment on above: PCP-NRJ-Nyxo and Mid LAD w/ 3.0 x 28 mm and 3.0 x 12 mm Promus 01/2009; Cutting Balloon Angioplasty RLR-WSF-Oyz-LAD w/ 2.5 x 38 mm and 3.0 x 12 mm Promus Element and POBA-D1 11/22/13 Start: 11-16-2013 End: 11-25-2013 Left Heart Cath Matt Kilpatrick MD Work Phone: Start: 11-16-2013 End: 11-16-2013 Nurse, Teaching, Wound Check (no charge) Matt Kilpatrick MD Work Phone: Start: 11-15-2013 End: 11-16-2013 CBC W Auto Differential panel - Blood Matt Kilpatrick MD Work Phone: Start: 11-12-2013 End: 04-26-2014 *BMP Fernando Pratt MD Start: 11-12-2013 End: 04-26-2014 aPTT Breann Hwang PA-C Work Phone: Start: 11-12-2013 End: 04-26-2014 CBC W Auto Differential panel - Blood Breann Hwang PA-C Work Phone: Start: 11-12-2013 End: 11-16-2013 Chest x-ray Breann Hwang PA-C Work Phone: Start: 11-12-2013 End: 04-26-2014 Coagulation factor induced.INR assay in platelet poor plasma Fernando Pratt MD Start: 11-12-2013 End: 11-16-2013 Electrocardiogram, complete Breann Hwang PA-C Work Phone: Start: 11-12-2013 End: 11-25-2013 Follow Up Appt Other Breann soliz PA-C Work Phone: Start: 11-12-2013 End: 11-16-2013 Left Heart Cath Breann Hwang PA-C Work Phone: Start: 08-30-2013 End: 10-21-2013 *Hepatic Function Panel Kelly Dominguez Start: 08-30-2013 End: 10-21-2013 Coagulation factor induced.INR assay in platelet poor plasma Fernando Pratt MD Start: 08-30-2013 End: 11-16-2013 Digoxin [Mass/volume] in Serum or Plasma Fernando Pratt MD Start: 08-30-2013 End: 11-16-2013 Lipid panel [AGGREGATE] Kelly Dominguez Start: 06-08-2013 End: 11-16-2013 Arterial exam Fernando Pratt MD Start: 03-09-2013 End: 03-09-2013 Follow Up Appt 6 months Kelly Dominguez Start: 03-09-2013 End: 03-09-2013 MMM Fernando Pratt MD Start: 2012 End: 11-16-2013 *Hepatic Function Panel Kelly Dominguez Start: 2012 End: 11-16-2013 Lipid panel [AGGREGATE] Kelly Dominguez Start: 02-14-2012 End: 03-11-2012 *Hepatic Function Panel Kelly Dominguez Start: 02-14-2012 End: 02-14-2012 Follow Up Appt 6 months Kelly Dominguez Start: 02-14-2012 End: 03-11-2012 Lipid panel [AGGREGATE] Kelly Dominguez Plan of Treatment Date Care Activity Detail Author Start: 03-29-2025 Patient referral [facility] Work Phone: Start: 02-20-2023 Injection shoulder arthrography/ ct/mri arthg INJECTION FOR SHOULDER X-RAY [facility] Start: 08-01-2022 Influenza vaccination Sequential Influenza Vaccine (#1) [facility] Start: 11-20-2017 End: 11-20-2017 Appointment Appointment [facility] Work Phone: Start: 05-09-2017 End: 05-09-2017 Nuclear stress test -exercise Nuclear stress test -exercise [facility] Phone: Start: 05-08-2017 End: 05-08-2017 Appointment Appointment [facility] Work Phone: Start: 05-08-2017 End: 05-12-2017 Coagulation factor induced.INR assay in platelet poor plasma [facility] Phone: Start: 05-08-2017 End: 05-08-2017 Follow Up Appt 6 months Follow Up Appt 6 months [facility] Phone: Start: 05-08-2017 End: 05-08-2017 MMM MMM [facility] Phone: Start: 05-08-2017 End: 05-08-2017 Nuclear stress test -exercise Nuclear stress test -exercise [facility] Phone: Start: 05-01-2017 End: 05-05-2017 Coagulation factor induced.INR assay in platelet poor plasma *PT/INR - Standing Order [facility] Phone: Start: 09-28-2014 End: 09-28-2014 Follow Up Appt 6 months Follow Up Appt 6 months [facility] Phone: Start: 09-28-2014 End: 09-28-2014 MMM MMM [facility] Phone: Start: 09-12-2014 End: 09-13-2014 Coagulation factor induced.INR assay in platelet poor plasma *PT/INR - Standing Order [facility] Phone: Start: 04-26-2014 End: 04-26-2014 Follow Up Appt 6 months Follow Up Appt 6 months [facility] Phone: Start: 04-26-2014 End: 04-26-2014 MMM MMM [facility] Phone: Start: 01-28-2014 End: 04-26-2014 *Hepatic Function Panel *Hepatic Function Panel [facility] Phone: Start: 01-28-2014 End: 04-26-2014 Lipid panel [AGGREGATE] *Lipid Profile CC PCP [facility] Work Phone: Start: 12-03-2013 End: 12-03-2013 CHRISTIAN SCIENCE READER CHRISTIAN SCIENCE READER [facility] Work Phone: Start: 12-03-2013 End: 12-03-2013 Follow Up Appt 3 months Follow Up Appt 3 months [facility] Work Phone: Start: 11-16-2013 End: 11-25-2013 Left Heart Cath Left Heart Cath [facility] Work Phone: Start: 11-15-2013 End: 11-16-2013 CBC W Auto Differential panel - Blood *CBC without Diff [facility] Work Phone: Start: 11-12-2013 End: 11-12-2013 *BMP *BMP [facility] Work Phone: Start: 11-12-2013 End: 11-12-2013 aPTT *PTT-Partial Thromboplastin Time [facility] Work Phone: Start: 11-12-2013 End: 11-12-2013 aPTT Coag time (PPP) *PTT-Partial Thromboplastin Time [facility] Work Phone: Start: 11-12-2013 End: 11-12-2013 CBC W Auto Differential panel - Blood *CBC without Diff [facility] Work Phone: Start: 11-12-2013 End: 11-16-2013 Chest x-ray X-Ray, Chest, PA & Lateral [facility] Work Phone: Start: 11-12-2013 End: 11-12-2013 Coagulation factor induced.INR assay in platelet poor plasma *PT/INR [facility] Work Phone: Start: 11-12-2013 End: 11-16-2013 Electrocardiogram, complete EKG (In office) [facility] Work Phone: Start: 11-12-2013 End: 11-25-2013 Follow Up Appt Other Follow Up Appt Other [facility] Work Phone: Start: 11-12-2013 End: 11-16-2013 Left Heart Cath Left Heart Cath [facility] Work Phone: Start: 08-30-2013 End: 10-21-2013 *Hepatic Function Panel *Hepatic Function Panel [facility] Work Phone: Start: 08-30-2013 End: 11-16-2013 Digoxin *Digoxin (Drug Assay) [facility] Work Phone: Start: 08-30-2013 End: 10-21-2013 Lipid panel [AGGREGATE] *Lipid Profile CC PCP [facility] Work Phone: Start: 06-08-2013 End: 06-08-2013 Arterial exam Arterial exam [facility] Work Phone: Start: 03-09-2013 End: 03-09-2013 Follow Up Appt 6 months Follow Up Appt 6 months [facility] Work Phone: Start: 03-09-2013 End: 03-09-2013 MMM MMM [facility] Work Phone: Start: 2012 End: 11-16-2013 *Hepatic Function Panel *Hepatic Function Panel [facility] Work Phone: Start: 2012 End: 11-16-2013 Lipid panel [AGGREGATE] *Lipid Profile [facility] Work Phone: Start: 02-14-2012 End: 03-11-2012 *Hepatic Function Panel *Hepatic Function Panel [facility] Work Phone: Start: 02-14-2012 End: 02-14-2012 Follow Up Appt 6 months Follow Up Appt 6 months [facility] Work Phone: Start: 02-14-2012 End: 03-11-2012 Lipid panel [AGGREGATE] *Lipid Profile [facility] Work Phone: Start: 2009 Administration of herpes zoster vaccine Zoster Vaccines (1 of 2) [facility] Start: 1977 Hepatitis C screening Hepatitis C Screening [facility] Start: 1974 HIV screening HIV Screening [facility] Start: 1971 Depression screening using PHQ-9 (Patient Health Questionnaire 9) score Depression Screening (PHQ-2/9) [facility] Start: 1962 History and physical examination, annual for health maintenance Wellness Visit [facility] Start: 1959 COVID-19 Vaccine (#1) COVID-19 Vaccine (#1) [facility] Start: 1959 Prostate specific antigen measurement PSA Level [facility] Start: 1959 Screening for malignant neoplasm of colon [facility] Start: 1959 Tetanus vaccination Tetanus: Every 10yrs [facility] Lipid 1996 panel - S anne or Plasma [facility] Patient Education Isosorbide+Din itrate%2FHy dralazine+(Oral)+(Tablet) [facility] Work Phone: Patient referral [facility] Work Phone: [facility] Payers Date Payer Category Payer Self-pay [id number] 2024 Medicare [id number] 2016 Unknown [id number] [employer] HMO [id number] 2016-Present [phone] [address] [place] [address] [id number] Unknown [id number] Unknown [id number] Unknown [id number] Unknown [id number] Unknown [id number] Unknown [id number] Unknown [id number] Unknown [id number] Unknown [id number] Unknown [id number] Unknown [id number] Social History Date Type Detail Facility Start: 12-11-2021 End: 09-01-2023 Tobacco smoking status MEIS Unknown if ever smoked [facility] Start: 12-23-[address] [facility] Start: 12-24-2018 Non-smoker [facility] Start: 1960 Sex Assigned At Male W [facility] Start: 06-21-2016 End: 02-26-2024 Tobacco smoking status MEIS Never smoked tobacco [facility] Start: 06-21-2016 Alcohol intake Current non-dr li of alcohol (finding) [facility] Start: 1960 Sex Assigned At Not on file O [facility] Start: 02-07-2025 Sex Male (finding) [facility] Radiology Diagnostic study note 07-25-2025 Note Date & Type Note Facility 07-25-2025 Radiology Diagnostic study note [facility] Imaging Services [address] [place] [address] Cerv Spine Obl/Flex/Ext Comp MR#: [id number] Acct: [id number] Name: MG DIAZ II Rep #: [id number] : 1960 M 65 From: Harris Warren MD PCP: Dr. Cely Paiz MD Status: REG CLI Study:Cerv Spine Obl/Flex/Ext Comp Date of Ex am: 07/25/25 Exam# [id number] Ordering Dr: Khushboo Green PROCEDURE: CERV SPINE OBL/FLEX/EXT COMP 07/25/2025 REASON FOR EXAM: CERVICAL PAIN TECHNIQUE: CERV SPINE OBL/FLEX/EXT COMP COMPARISON: None FINDINGS: Vertebrae: Vertebral heights are well-maintained. disc spaces: Disc space narrowing and spondylosis at the C5-C6 and C6-C7 levels. Alignment: Minimal anterior listhesis of C5 on C6 on neutral positioning. This is stable on the extension views. Minimal anterior listhesis on the flexion views. soft tissues: No prevertebral soft tissue swelling. Other: Facet joint osteoarthritis. RAD/Cerv Spine Obl/Flex/Ext Comp IMPRESSION: Disc space narrowing and spondylosis at the C5-C6 and C6-C7 levels. Minimal anterior listhesis of C5 on C6 which is more pronounced on the flexion views. Disclaimer: Reading Location: [id number] CC: Khushboo Green; Dr. Cely Paiz MD ~ Home Energy Consultant Supervisor: Signed [facility] Evaluation note 03-29-2025 Note Date & Type Note Facility 03-29-2025 Evaluation note Diagnosis Onset Date Resolution Atherosclerosis of coronary artery of [place] heart without angina pectoris chronic March 29, 2025 12:46pm Essential (primary) hypertension chronic March 29, 2025 12:46pm Paroxysmal atrial fibrillation chronic March 29, 2025 12:46pm Elevated PSA noneactive March 29, 2025 12:46pm Screening for depression noneactive March 29, 2025 12:46pm Chronic pain noneactive March 29, 2025 12:46pm Type 2 diabetes mellitus noneactive March 29, 2025 12:46pm Mixed hyperlipidemia noneactive [facility] 2024 12:46pm Vitamin D deficiency noneactive [facility] 2024 12:46pm Obesity (BMI 30-39.9) noneactive Apr [place] 2024 12:46pm [facility] Work Phone: Evaluation note 10-19-2024 Note Date & Type Note Facility 10-19-2024 Evaluation note Diagnosis Onset Date Resolution Fatigue acute October 19, 2024 7:35am Atherosclerosis of coronary artery of [place] heart without angina pectoris chronic October 19 024 7:35am Essential (primary) hypertension chronic October 19 7:35am Paroxysmal atrial fibrillation chronic October 19 7:35am Elevated PSA noneactive October 7:35am Chronic pain noneactive October 7:35am Type 2 diabetes mellitus noneactive October 19, 2024 7:35am Mixed hyperlipidemia noneactive [facility] 2023 7:35am Obesity (BMI 30-39.9) noneactive [facility] 2023 7:35am [facility] Work Phone: Evaluation note 11-22-2013 Note Date & Type Note Facility 11-22-2013 Evaluation note Diagnosis Onset Date Essential (primary) hypertension chronic Hyperlipidemia chronic Paroxysmal atrial fibrillation chronic History of coronary artery stent placement November 22, 2013 resolved [facility] Work Phone: Evaluation note 11-22-2013 Note Date & Type Note Facility 11-22-2013 Evaluation note Diagnosis Onset Date Fatigue acute Essential (primary) hypertension chronic Hyperlipidemia chronic Paroxysmal atrial fibrillation chronic History of coronary artery stent placement November 22, 2013 resolved [facility] Work Phone: Evaluation note Note Date & Type Note Facility Evaluation note No assessment information availa [facility] Work Phone: Reason for referral (narrative) Note Date & Type Note Facility Reason for referral (narrative) No reason for referral information available [facility] Work Phone: Summary Purpose Family History No Family History Records Found Relationship Condition Age at Onset Recorded Date/T tino Not Specified Cardiac disease Unknown father Coronary artery disease Unknown mother Coronary artery disease Unknown Relationship Condition Age at Onset Recorded Date/T tino Not Specified Cardiac disease Unknown father Coronary artery disease Unknown mother Coronary artery disease Unknown Myocardial infarction Unknown Fibromyalgia Unknown sister Aneurysm Unknown Atrial fibrillation Unknown Advance Directives No Advanced Directives Records Found Advance Directive Response Recorded Date/ Time Living Will No December 21 2:18pm Power of Service Parts Driver No December 21, 2018 2:18pm Chief Complaint and Reason for Visit Chief Complaint E ORDER E ORDER Chief Complaint E ORDER E ORDER S/O LABS Chief Complaint S/O LABS Chief Complaint 1 Y FU Reason for Visit Essential (primary) hypertension Hyperlipidemia Paroxysmal atrial fibrillation History of coronary artery stent placement Chief Complaint 1 Y FU RIGHT SHOULDER PAIN Reason for Visit Essential (primary) hypertension Hyperlipidemia Paroxysmal atrial fibrillation History of coronary artery stent placement Chief Complaint INT LABS 6 M FU NEED LAB ORDER Reason for Visit Fatigue Essential (primary) hypertension Hyperlipidemia Paroxysmal atrial fibrillation History of coronary artery stent placement Chief Complaint Admit Date 1 M FU October 19, 2024 7:35am PSA January 25, 2025 10:21am Reason for Visit Admit Date Fatigue October 19, 2024 7:35am Atherosclerosis of coronary artery of [place] heart without angina pectoris October 19, 2024 7:35am Essential (primary) hypertension Novembe r 2023 7:35am Paroxysmal atrial fibrillation October 19, 2024 7:35am Elevated PSA October 19, 2024 7:35am Chronic pain October 19, 2024 7:35am Type 2 diabetes mellitus October 19, 2024 7:35am Mixed hyperlipidemia October 19, 2024 7:35am Obesity (BMI 30-39.9) October 19 7:35am Chief Complaint Admit Date PSA January 25, 2025 10:21am refill medication March 29, 2025 12: 46pm Reason for Visit Admit Date Atherosclerosis of coronary artery of [place] heart without angina pectoris March 29, 2025 12:46pm Essential (primary) hypertension March 022024 12:46pm Paroxysmal atrial fibrillation March 12:46pm Elevated PSA March 29, 2025 12: 46pm Screening for depression March 29 12:46pm Chronic pain March 29, 2025 12: 46pm Type 2 diabetes mellitus March 29 12:46pm Mixed hyperlipidemia March 29, 2025 12 :46pm Vitamin D deficiency March 29, 2025 12 :46pm Obesity (BMI 30-39.9) March 29, 2025 1 2:46pm Chief Complaint Admit Date CERVICAL PAIN July 25, 2025 8: 49am Additional Source Comments (unrecognized sect ion and content) No Status Records FoundNo Status Records Found INFORMATION SOURCE (unrecogn ized section and content) DATE CREATED AUTHOR 05/27/2018 [facility] DATE CREATED AUTHOR AUTHOR'S ORGANIZ ATION 09/30/2025 [facility] Goals (unrecognized section and content) Goals may be documented in a n alternate sectionGoals may be documented in an alternate sectionGoals may be documented in an alternate sectionGoals may be documented in an alternate sectionGoals may be documented in an alternate sectionGoals may be documented in an alternate sectionGoals may be documented in an alternate sectionGoals may be documented in an alternate sectionGoals may be documented in an alternate section Reason for Visit (unrecogniz ed section and content) Reason Comments Medication Refill Care Teams (unrecognized sec tion and content) [employer] Relationship Specialty Start Date End Date Neto Box DO [address] [place] [address] PCP - General Family Medicine 06/13/16 12/19/21 Team Status: Active Member Role Status Dates Dr. Neto Box MD Family Provider Active Mj Robertson [employer] SUPERINTENDENT, [employer] SUPERINTENDENT-C Primary Care Provider Active Team Status: Inactive Member Role Status Dates Mj Robertson [employer] SUPERINTENDENT, [employer] SUPERINTENDENT-C Primary Care Provider, Referr ing Provider Active Dr. Fernando Pratt MD Active Francesca Yan [employer] SUPERINTENDENT, [employer] SUPERINTENDENT-C Attending Provider Active Team Status: Inactive Member Role Status Dates Mj Robertson NP, [employer] SUPERINTENDENT-C Primary Care Provider Active Dr. Newton Blackmon DO Attending Provider, Referrin g Provider Active Team Status: Active Member Role Status Dates Dr. Neto Box MD Family Provider Active Dr. Neto Goldsmith MD Primary Care Provider Active Team Status: Inactive Member Role Status Dates Mj Robertson [employer] SUPERINTENDENT, [employer] SUPERINTENDENT-C Referring Provider Active Francesca Yan [employer] SUPERINTENDENT, [employer] SUPERINTENDENT-C Attending Provider Active Dr. Neto Goldsmith MD Primary Care Provider Active Team Status: Inactive Member Role Status Dates Dr. Neto Goldsmith MD Primary Care Provider Active Francesca Yan [employer] SUPERINTENDENT, [employer] SUPERINTENDENT-C Attending Provider, Referring P mary Active Team Status: Inactive Member Role Status Dates Dr. Neto Goldsmith MD Primary Care Prov ider, Attending Provider, Referring Provider Active Team Status: Active Member Role Status Dates Dr. Cely Paiz MD Primary Care Provider Active Team Status: Inactive Member Role Status Dates Dr. Cely Paiz MD Primary Care Provider Active Start: October 19, 2024 End: October 19, 2024 Dr. Cely Paiz MD Attending Provider Active Start: October 19, 2024 End: October 19, 2024 Dr. Cely Paiz MD Referring Provider Active Start: October 19, 2024 End: October 19, 2024 Team Status: Inactive Member Role Status Dates Dr. Cely Paiz MD Primary Care Provider Active Start: October 19, 2024 End: October 19, 2024 Dr. Cely Paiz MD Attending Provider Active Start: October 19, 2024 End: October 19, 2024 Team Status: Inactive Member Role Status Dates Dr. Cely Paiz MD Primary Care Provider Active Start: November 01, 2024 End: November 01, 2024 Dr. Serafin Rod MD Attending Provider Active Start: November 01, 2024 End: November 01, 2024 Dr. Serafin Rod MD Referring Provider Active Start: November 01, 2024 End: November 01, 2024 Team Status: Inactive Member Role Status Dates Dr. Cley Paiz MD Primary Care Provider Active Start: December 03, 2024 End: December 03, 2024 Dr. Cely Paiz MD Attending Provider Active Start: December 03, 2024 End: December 03, 2024 Dr. Cely Paiz MD Referring Provider Active Start: December 03, 2024 End: December 03, 2024 Team Status: Inactive Member Role Status Dates Dr. Cely Paiz MD Primary Care Provider Active Start: January 25, 2025 End: January 25, 2025 Dr. Serafin Rod MD Attending Provider Active Start: January 25, 2025 End: January 25, 2025 Dr. Serafin Rod MD Referring Provider Active Start: January 25, 2025 End: January 25, 2025 Team Status: Inactive Member Role Status Dates Dr. Cely Paiz MD Primary Care Provider Active Start: March 29, 2025 End: March 29, 2025 Dr. Cely Paiz MD Attending Provider Active Start: March 29, 2025 End: March 29, 2025 Dr. Cely Paiz MD Referring Provider Active Start: March 29, 2025 End: March 29, 2025 Team Status: Inactive Member Role Status Dates Dr. Cely Paiz MD Primary Care Provider Active Start: April 21, 2025 End: April 21, 2025 Dr. Lebron Gilbert MD Attending Provider Active Start: April 21, 2025 End: April 21, 2025 Dr. Lebron Gilbert MD Referring Provider Active Start: April 21, 2025 End: April 21, 2025 Team Status: Active Member Role/Relationship Status Dates Dr. Cely Paiz MD Primary Care Provider Active Team Status: Inactive Member Role/Relationship Status Dates Dr. Cely Paiz MD Primary Care Provider Active Start: April 21, 2025 End: April 21, 2025 Dr. Lebron Gilbert MD Attending Provider Active Start: April 21, 2025 End: April 21, 2025 Dr. Lebron Gilbert MD Referring Provider Active Start: April 21, 2025 End: April 21, 2025 Team Status: Inactive Member Role/Relationship Status Dates Dr. Cely Paiz MD Primary Care Provider Active Start: July 25, 2025 End: July 25, 2025 [employer] SUPERINTENDENT. Khushboo Green Attending Provider Active Star t: July 25, 2025 End: July 25, 2025 [employer] SUPERINTENDENT. Khushboo Green Referring Provider Active Star t: July 25, 2025 End: July 25, 2025 FOR RECORDS PERTAINING TO PATIENTS WHO ARE OR HAVE BEEN ENROLLED IN A CHEMICAL DEPENDENCY/SUBSTANCEABUSE PROGRAM, SOME INFORMATION MAY BE OMITTED. This clinical summary was aggregated from multiple sources. Caution should be exercised in using it in the provision of clinical care. This summary normalizes information from multiple sources, and as a consequence, information in this document may materially change the coding, format and clinical context of patient data. In addition, data may be omitted in some cases. CLINICAL DECISIONS SHOULD BE BASED ON THE PRIMARY CLINICAL RECORDS. [facility] [employer] provides no warranty or guarantee of the accuracy or completeness of information in this document.
--- NOTE | 2025-11-16 18:19 | STRESSREP ---
Stress Test Report Pharmacologic myocardial perfusion stress test. Date Test Performed: 11/16/2025 65-year-old man with a history of coronary artery disease. Resting EKG demonstrates atrial fibrillation with a rate of 88 bpm. Resting blood pressure is 116/68 mmHg. 0.4 mg of regadenoson was infused per usual protocol followed by rapid intravenous saline flush injection. Continuous EKG monitoring was performed. The maximum heart rate was 97 bpm which was 62% of max impacted heart rate the maximum workload was 1 metabolic equivalent. At rest there were no ST or T wave changes noted to suggest ischemia and at peak infusion nonspecific ST changes were noted which did not meet the criteria for ischemia. No clinical angina is noted. The final blood pressure was 118/70 mmHg. Myocardial perfusion protocol. 14.6 mCi of technetium 99m sestamibi was injected at rest. 0.4 mg of regadenoson was infused per usual protocol. At peak infusion 44.8 mCi of technetium 99m sestamibi was injected stress images were obtained stress and rest images were reconstructed and compared in the short axis vertical long and horizontal long axis. Gated images were also obtained. Perfusion SPECT analysis: Review of the stress images demonstrate normal uptake of tracer noted in all areas of the myocardium. There is mild reduction noted in the distal anterior wall. The resting images similar demonstrated normal uptake of tracer noted in all areas of the myocardium with mild reduction noted in the mid to distal anterior wall. A minimal amount of ischemia cannot be completely excluded and the distal tip of the apex. Gated SPECT analysis: The gated ejection fraction is 77%. Conclusion: Mildly abnormal pharmacologic myocardial perfusion stress test. Preserved ejection fraction.
== END | disposition home or self-care (01) ==
LOC: CVS 06:02
PROVIDERS: PCP Internal Medicine; Referring Provider Physician Assistant Medical; Visit Provider Physician Assistant Medical
DX: I25.5 Ischemic cardiomyopathy (principal)
CPT/HCPCS: 78452; 93017; 93306; A9500; Q9957; A4216; C8929; J2785